=== PATIENT | female | born 1995 | race Caucasian/White ===

== ENCOUNTER → 2018-03-31 12:46 | Outpatient (CLI) | payer SELFPAY ==
[2018-03-31 13:42] LABS: Absolute Lymphocyte Count 1.17 X10^3/ul (0.83-4.51); Absolute Neutrophil Count 4.1 X10^3/uL (2.0-7.7); Eosinophil# 0.01 X10^3/uL; Eosinophils% 0.2 % (0-5); Hematocrit 37.2 % (37-47); Hemoglobin 12.3 g/dl (12.0-15.0); Lymphocyte # 1.17 X10^3/ul (4.0); Lymphocyte % 20.7 % (19-41); Mean Corp Hgb Conc 33.1 g/gl (32-36); Mean Corpuscular Hgb 29.6 pg (27.0-32.0); Mean Corpuscular Volume 89.6 fL (81-99); Mean Platelet Vol. 10.6 fl (6.2-12.0); Monocyte# 0.32 X10^3/uL; Monocyte% 5.7 % (0-10); Neutrophil # 4.14 X10^3/uL (2.7-7.7); Neutrophil % 73.4 % (47-70); Platelet Count 206 K/mm3 (150-450); RBC Distribution Width CV 13.2 % (11.6-14.6); RBC Distribution Width SD 43.2 fl (35.1-43.9); Red Blood Count 4.15 M/mm3 (4.2-5.4); White Blood Count 5.6 K/mm3 (4.4-11.0)
[2018-03-31 13:51] LABS: POSITIVE COUNT NO; POSITIVE DIFFERENTIAL NO; POSITIVE MORPHOLOGY NO
[2018-03-31 15:35] LABS: HIV - WCH Non-Reactive (Nonreactive); Rubella IgG 139.1 IU/mL
[2018-03-31 21:05] LABS: Chlamydia Trachomatis by PCR Negative (Negative); Neisserai gonorrhoeae by PCR Negative (Negative); Probe Check PASS; Sample Adequacy Control PASS; Specimen Processing Control PASS
[2018-04-01 17:09] LABS: HEPATITIS B SURFACE AG Negative (Negative)
[2018-04-02 04:36] LABS: Rapid Plasmin Reagin (RPR) NONREACTIVE (NONREACTIVE)
[2018-04-06 09:13] LABS: HPV Reflexed? NOT INDICATED
== END ==
PROVIDERS: Nurse Practitioner Women's Health; Family Provider Family Medicine; PCP Family Medicine; Visit Provider Obstetrics & Gynecology
DX: Z34.00 Encounter for supervision of normal first pregnancy, unspecified trimester (principal)
CPT/HCPCS: 36415; 85025; 86592; 86703; 86762; 86850; 86900; 87086; 87088; 87340; 87491; 87591; 88175; G0145

== ENCOUNTER → 2018-05-17 11:30 | Outpatient (CLI) | payer SELFPAY ==
--- NOTE | 2018-05-17 11:32 | US_ITS ---
STUDY: SECOND AND THIRD TRIMESTER OBSTETRICAL ULTRASOUND - LIMITED REASON FOR EXAM: Female, 22 years old. Bleeding. LMP: PRIOR ULTRASOUND: None. TECHNIQUE: Transabdominal and transvaginal ultrasound were performed.. Transvaginal ultrasound was performed to better visualize the cervix and placenta. FINDINGS: There is a single intrauterine fetus. The fetus is in a transverse lie with the head on the maternal right side. There is demonstrated cardiac activity with a heart rate of 155 bpm. There is a normal amniotic fluid volume. The largest amniotic fluid pocket and RHINA were not measured. The placenta is posterior with a complete previa. There are Grade 0 placental changes. The cervix measures 4.3 cm in length and it is closed. There is a small amount of free fluid in the posterior cul-de-sac of the pelvis. BIOMETRY: BPD: 3.11 cm: 15 weeks, 6 days HC: 11.55 cm: 15 weeks, 5 days AC: 9.22 cm: 15 weeks, 3 days FL: 1.85 cm: 15 weeks, 4 days Age by LMP: 15 weeks, 4 days. SANDIP by LMP: 11/04/2018. age by current US: 15 weeks, 5 days. SANDIP by current US: 11/03/2018. Estimated weight: 125 grams, +/- 18 grams, 33 percentile. Gender: Not demonstrated. US/OB Limited With Biometrics IMPRESSION: Single viable intrauterine gestation of 15 weeks, 5 days with estimated date of delivery of 11/03/2018. Posterior placenta with a complete placenta previa. Follow-up is advised. No evidence for placental abruption. Cervix is long and closed. Electronically Signed: Mike Reeves MD at 2:36 EDT , Service support ,
== END ==
PROVIDERS: Family Provider Family Medicine; PCP Family Medicine; Visit Provider Obstetrics & Gynecology
DX: O20.8 Other hemorrhage in early pregnancy (principal); Z3A.00 Weeks of gestation of pregnancy not specified
CPT/HCPCS: 76816

== ENCOUNTER → 2018-08-19 10:47 | Outpatient (CLI) | payer SELFPAY ==
[2018-08-19 10:20] VITALS: BMI 23.1
[2018-08-19 11:40] LABS: Absolute Lymphocyte Count 1.09 X10^3/ul (0.83-4.51); Absolute Neutrophil Count 5.8 X10^3/uL (2.0-7.7); Basophil# 0.01 X10^3/uL; Basophil% 0.1 % (0-1); Eosinophil# 0.01 X10^3/uL; Eosinophils% 0.1 % (0-5); Hematocrit 35.9 % (37-47); Hemoglobin 11.9 g/dl (12.0-15.0); Lymphocyte # 1.09 X10^3/ul (4.0); Lymphocyte % 14.9 % (19-41); Mean Corp Hgb Conc 33.1 g/gl (32-36); Mean Corpuscular Hgb 30.4 pg (27.0-32.0); Mean Corpuscular Volume 91.8 fL (81-99); Mean Platelet Vol. 10.2 fl (6.2-12.0); Monocyte# 0.39 X10^3/uL; Monocyte% 5.3 % (0-10); Neutrophil % 79.5 % (47-70); Platelet Count 187 K/mm3 (150-450); RBC Distribution Width CV 12.9 % (11.6-14.6); RBC Distribution Width SD 43.3 fl (35.1-43.9); Red Blood Count 3.91 M/mm3 (4.2-5.4); White Blood Count 7.3 K/mm3 (4.4-11.0)
[2018-08-19 11:42] LABS: POSITIVE COUNT NO; POSITIVE DIFFERENTIAL NO; POSITIVE MORPHOLOGY NO
[2018-08-19 11:49] LABS: Glucose Challenge Gest 1H 50g 168 mg/dL (70-140)
--- OUTSIDE RECORDS SUMMARY | 2018-10-05 06:03 | XMS RPT_ITS ---
:1995 Author Organization OHIP Support Name Relationship Address Phone RUBIN CHRISTINE Unavailable [address] + [place] [address] UE Unavailable Unavailable Unavailable NANCI, RUBIN Unavailable [address] + [place] [address] UE Unavailable Unavailable Unavailable NANCI, RUBIN Unavailable [address] + [place] [address] UE Unavailable Unavailable Unavailable NANCI, RUBIN Unavailable [address] + [place] [address] UE Unavailable Unavailable Unavailable [employer] Unavailable [address] + [place] [address] NANCI, RUBIN Unavailable [address] + [place] [address] NANCI, NAYANA Unavailable [address] + [place] [address] [employer] Unavailable [address] + [place] [address] NANCI, RUBIN Unavailable [address] + [place] [address] [employer] Unavailable [address] + [place] [address] NANCI, RUBIN Unavailable [address] + [place] [address] NANCI NAYANA Unavailable [address] + [place] [address] [employer] Unavailable [address] + [place] [address] NANCI, RUBIN Unavailable [address] + [place] [address] [employer] Unavailable [address] + [place] [address] NANCI, RUBIN Unavailable [address] + [place] [address] [employer] Unavailable [address] + [place] [address] NANCI, RUSTUIN Unavailable [address] + [place] [address] [employer] Unavailable [address] + [place] [address] NANCI, RUSTUIN Unavailable [address] + [place] [address] [employer] Unavailable [address] + [place] [address] NANCI, RUSTUIN Unavailable [address] + [place] [address] [employer] Unavailable [address] + [place] [address] NANCI, RUSTUIN Unavailable [address] + [place] [address] NANCI, RUSTUIN Unavailable [address] + [place] [address] UE Unavailable Unavailable Unavailable Care Team Providers Name Role Phone LAURA POOL Attending Unavailable ANA MIRANDA Referring Unavailable NO PRIMARY CAREMD Primary Care Unavailable ALEX TOURE Attending Unavailable ANA MIRANDA Referring Unavailable NO PRIMARY CAREMD Primary Care Unavailable Ana Miranda Attending Unavailable Young Guzman Referring Unavailable Ana Miranda Attending Unavailable Ana Miranda Referring Unavailable Young Guzman Primary Care Unavailable Ana Miranda Attending Unavailable Young Guzman Referring Unavailable Kaitlynn Nelson Attending Unavailable Kaitlynn Nelson Referring Unavailable Young Guzman Primary Care Unavailable Ana Miranda Attending Unavailable Young Guzman Referring Unavailable Ana Miranda Attending Unavailable Megan, Young Referring Unavailable Marcanthony, Ana Attending Unavailable Megan, Young Referring Unavailable Megan, Young Primary Care Unavailable Marcanthony, Ana Attending Unavailable Marcanthony, Ana Referring Unavailable Megan, Young Primary Care Unavailable Megan, Young Referring Unavailable Megan, Young Primary Care Unavailable [place], Kaitlynn Attending Unavailable [place], Kaitlynn Attending Unavailable Megan, Young Referring Unavailable Megan, Young Primary Care Unavailable Marcanthony, Ana Attending Unavailable Marcanthony, Ana Referring Unavailable Megan, Young Primary Care Unavailable Omar, Kaitlynn Attending Unavailable Megan, Young Referring Unavailable Megan, Young Primary Care Unavailable Marcanthony, Ana Attending Unavailable Megan, Young Referring Unavailable Marcanthony, Ana Attending Unavailable Megan, Young Referring Unavailable PROBLEMS PROBLEMS DATE TYPE CONDITION / CODE ATTENDING STATUS SOURCE 09/16/2018 Unknown Z34.03 - Encounter Marcanthony, Active [place] for supervision of [facility] normal first Hospital , third Repository trimester / Z34.03(ICD-10) 09/16/2018 Unknown O99.815 - Abnormal Marcanthony, Active [place] glucose [facility] complicating the Hospital puerperium / Repository O99.815(ICD-10) 09/16/2018 Unknown Z3A.33 - 33 weeks Marcanthony, Active [place] gestation of [facility] / Hospital Z3A.33(ICD-10) Repository 09/02/2018 Unknown Z3A.31 - 31 weeks Marcanthony, Active [place] gestation of [facility] / Hospital Z3A.31(ICD-10) Repository 08/19/2018 Unknown Z34.90 - Encounter Marcanthony, Active [place] for supervision of [facility] normal , Hospital unspecified, Repository unspecified trimester / Z34.90(ICD-10) 08/19/2018 Unknown Z3A.29 - 29 weeks Marcanthony, Active [place] gestation of [facility] / Hospital Z3A.29(ICD-10) Repository 08/19/2018 Unknown Z34.02 - Encounter Marcanthony, Active [place] for supervision of [facility] normal first Hospital , second Repository trimester / Z34.02(ICD-10) 07/26/2018 Unknown O44.40 - Low lying Marcanthony, Active [place] placenta NOS or [facility] without Hospital hemorrhage, Repository unspecified trimester / O44.40(ICD-10) 07/26/2018 Unknown Z3A.25 - 25 weeks Tayanthcheikh, Active [place] gestation of [facility] / Hospital Z3A.25(ICD-10) Repository 06/21/2018 Unknown Z3A.21 - 21 weeks Joe, Active [place] gestation of [facility] / Hospital Z3A.21(ICD-10) Repository 05/13/2018 Unknown O20.8 - Other OmarKaitlynn higgins Active [place] hemorrhage in [facility] early / Hospital O20.8(ICD-10) Repository 05/07/2018 Unknown Z36.9 - Encounter Kaitlynn Nelson Active [place] for Community screening, Hospital unspecified / Repository Z36.9(ICD-10) 05/07/2018 Unknown Z3A.12 - 12 weeks Kaitlynn Nelson Active [place] gestation of [facility] / Hospital Z3A.12(ICD-10) Repository 05/07/2018 Unknown Z34.00 - Encounter Joe, Active [place] for supervision of [facility] normal [facility] , Repository unspecified trimester / Z34.00(ICD-10) 05/07/2018 Unknown Z34.01 - Encounter Tayanthcheikh, Active [place] for supervision of [facility] normal [facility] , first Repository trimester / Z34.01(ICD-10) PROCEDURES PROCEDURES No Procedure Records FoundRESULTS RESULTS WORKFORCE DEVELOPMENT ASSISTANT OFFICE VISIT Observed: 09/16/2018 Status: F Source: [place] REPORT 2:40 PM [facility] REPOSITORY [facility] [address] [place] [address] [address] [place] [address] OFFICE VISIT Date of Service: 09/16/18 MR#: [id number] Acct: [id number] Name: NAYANA CHRISTINE Rep #: [id number] : 1995 Provider: Ana Miranda MD Age/Sex: 23/F [place] [facility] [place] Status: Signed Intake Vital Signs09/16/18 Body Mass Index (BMI) 23.1 09/16/18 Height 5 ft 11 in 09/16/18 Weight: 167 lb 09/16/18 Body Mass Index (BMI) 23.3 09/16/18 Blood Pressure 100/56 L Intake Visit Reasons: 32 WEEK OB Chief Complaint: est ob Verse Writer Required: No Is patient in pain?: No Allergies acetaminophen [From Tylenol] Allergy (Mild, Verified 09/16/18 14:02) scratchy throat amoxicillin Allergy (Mild, Verified 09/16/18 14:02) rash Medications docosahexanoic acid 200 mg capsule mg PO 03/31/18 [History Confirmed 09/16/18] Last Menstral Period: 01/28/18 Zika: Zika virus screening: Negative : No PFSH PFSH Surgical History S/P nasal surgery (Resolved) Family History Mother Hypotension Social History Smoking Status: Never smoker alcohol intake: never substance use type: does not use caffeine: Yes what type of physical activity do you participate in: walking, weight training frequency: 3-4 times per week seatbelt use: always do you feel safe at home: Yes 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 OB Visit SANDIP Calculator Estimated Delivery Date 11/04/18 Based on LMP (certain) 01/28/18 Current WG 33w 0d Number 1 Expected Delivery Route/Plan Specific Issue/Plans flu vaccine: decline tdap vaccine: given rhogam: na LARC form signed: declines labor support person: Augusto pain management: epidural cut cord/dad catch: yes : yes PP control planned: undecided discussed possible routes of delivery and associated risks: [] special requests: [] Initial Weight: 150 lb Date Weight BP Urine PrFHR FuHt Pres MoCTX DilationFetal StVisit NoProviderComments E ot v te [place] G Effac lucose ed Visit Notes Visit Date: 09/16/18 no vb lof good fm no regular ctx Ana Miranda MD on 09/16/18 Visit Date: 09/02/18 no vb lof good fm no regular ctx nl 3 hr gtt larc signed Ana Miranda MD on 09/02/18 Visit Date: 08/19/18 no vb lof good fm no regular ctx cbc gct tdap Ana Miranda MD on 08/19/18 Visit Date: 07/26/18 no vb lof good fm Ana Miranda MD on 07/26/18 Visit Date: 06/21/18 no vb crmaping. schedule fu us to reassess placental location Ana Miranda MD on 06/21/18 Visit Date: 05/27/18 Doing well. No recent vaginal bleeding. FELI Fitzpatrick on 05/27/18 Visit Date: 05/13/18 Work in for vaginal bleeding-bright red this AM but dark now. No recent IC. No cramping. FHT easily found with doppler. Vaginal speculum notes moderate amount dark blood in vagina. Cervix closed. FELI Fitzpatrick on 05/13/18 Visit Date: 04/29/18 Doing well. Still considering genetic screening. No VB, LOF, nausea. Fatigue improved. FELI Fitzpatrick on 04/29/18 Visit Date: 03/31/18 No visit notes to display ACOG First Trimester First Trimester: Desire for , Alcohol, Tobacco Cessation, Illicit/Recreational Drug/Substance Use, Intimate Partner Violence, Barriers to care, Unstable Housing, Communication Barriers, Environmental/Work Hazards, Anticipated Course of Care, Toxoplasmosis Precations, Use of Any medications, Sexual activity, Exercise, Dental Care, Sauna/Hot tub use, Seat Belt use, Childbirth classes/Hospital facilities, , Travel, Indications for US and Screening for Aneuploidy Diagnostics Diagnostics Labs Blood Type A POSITIVE 03/31/18 Antibody Screen NEGATIVE 03/31/18 Hct 35.9 % (37-47) L 08/19/18 Hgb 11.9 g/dl (12.0-15.0) L 08/19/18 Obstetrics Ultrasound 05/17/18 Rubella IgG Antibody 139.1 IU/mL 03/31/18 RPR NONREACTIVE (NONREACTIVE) 03/31/18 Hep Bs Antigen Negative (Negative) 03/31/18 Chlam trachomat DNA PCR Negative (Negative) 03/31/18 N.gonorrhoeae DNA (PCR) Negative (Negative) 03/31/18 Glucose 1 Hr 50 gm 168 mg/dL (70-140) H 08/19/18 Details: HIV: Urine Culture: Sequential Screen: NIPT Screen: Results [id number] Office Urine Glucose Negative Last Edit by Tona Dillon on 09/16/18 14:05 Office Urine Protein Negative Last Edit by Tona Dillon on 09/16/18 14:05 Assessment AND Plan Problems 1. Abnormal glucose complicating puerperium O99.815 3 hr GTT normal 2. 33 weeks gestation of Z3A.33 Declines genetic, carrier, and NTD screens. normal anatomy scan. 3. Encounter for supervision of normal first in third trimester Z34.03 SANDIP 11/04/18 boy Brock Augusto Plan movement and labor precautions reviewed. ACOG trimester education reviewed and updated. see problem list details for updated plan management information and see below for orders placed at this visit. [place] appropriate handout given. Orders Orders: Coding Level of Care Code OB Routine Diagnoses Abnormal glucose complicating puerperium O99.815 33 weeks gestation of Z3A.33 Weeks of gestation: 33 weeks Encounter for supervision of normal first in third trimester Z34.03 Normal : normal first Trimester: third trimester 09/16/18 1440 <Electronically signed by Ana Miranda MD> Date Ana Miranda MD Cosigner Signature: Date (if applicable) CC: WORKFORCE DEVELOPMENT ASSISTANT OFFICE VISIT Observed: 09/02/2018 Status: F Source: [place] REPORT 10:37 AM [facility] REPOSITORY [facility] [address] [place] [address] OFFICE VISIT Date of Service: 09/02/18 MR#: [id number] Acct: [id number] Name: NAYANA CHRISTINE Rinku Rep #: [id number] : 1995 Provider: Ana Miranda MD Age/Sex: 23/F [place] [facility] Status: Signed Intake Vital Signs09/02/18 Body Mass Index (BMI) 23.1 09/02/18 Height 5 ft 10 in 09/02/18 Weight: 164 lb 8 oz 09/02/18 Body Mass Index (BMI) 23.6 09/02/18 Blood Pressure 112/64 Intake Visit Reasons: 30 WEEK OB Verse Writer Required: No Accompanied by: Allergies acetaminophen [From Tylenol] Allergy (Mild, Verified 09/02/18 10:22) scratchy throat amoxicillin Allergy (Mild, Verified 09/02/18 10:22) rash Medications docosahexanoic acid 200 mg capsule mg PO 03/31/18 [History Confirmed 09/02/18] Last Menstral Period: 01/28/18 Zika: Zika virus screening: Negative : No PFSH PFSH Surgical History S/P nasal surgery (Resolved) Family History Mother Hypotension Social History Smoking Status: Never smoker alcohol intake: never substance use type: does not use caffeine: Yes what type of physical activity do you participate in: walking, weight training frequency: 3-4 times per week seatbelt use: always do you feel safe at home: Yes 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 OB Visit SANDIP Calculator Estimated Delivery Date 11/04/18 Based on LMP (certain) 01/28/18 Current WG 31w 0d Number 1 Expected Delivery Route/Plan Specific Issue/Plans flu vaccine: decline tdap vaccine: given rhogam: na LARC form signed: declines labor support person: Augusto pain management: epidural cut cord/dad catch: yes : yes PP control planned: undecided discussed possible routes of delivery and associated risks: [] special requests: [] Initial Weight: 150 lb Date Weight BP Urine PrFHR FuHt Pres MoCTX DilationFetal StVisit NoProviderComments E ot v te [place] G Effac lucose ed Visit Notes Visit Date: 09/02/18 no vb lof good fm no regular ctx nl 3 hr gtt larc signed Ana Miranda MD on 09/02/18 Visit Date: 08/19/18 no vb lof good fm no regular ctx cbc gct tdap Ana Miranda MD on 08/19/18 Visit Date: 07/26/18 no vb lof good fm Ana Miranda MD on 07/26/18 Visit Date: 06/21/18 no vb crmaping. schedule fu us to reassess placental location Ana Miranda MD on 06/21/18 Visit Date: 05/27/18 Doing well. No recent vaginal bleeding. FELI Fitzpatrick on 05/27/18 Visit Date: 05/13/18 Work in for vaginal bleeding-bright red this AM but dark now. No recent IC. No cramping. FHT easily found with doppler. Vaginal speculum notes moderate amount dark blood in vagina. Cervix closed. FELI Fitzpatrick on 05/13/18 Visit Date: 04/29/18 Doing well. Still considering genetic screening. No VB, LOF, nausea. Fatigue improved. FELI Fitzpatrick on 04/29/18 Visit Date: 03/31/18 No visit notes to display ACOG First Trimester First Trimester: Desire for , Alcohol, Tobacco Cessation, Illicit/Recreational Drug/Substance Use, Intimate Partner Violence, Barriers to care, Unstable Housing, Communication Barriers, Environmental/Work Hazards, Anticipated Course of Care, Toxoplasmosis Precations, Use of Any medications, Sexual activity, Exercise, Dental Care, Sauna/Hot tub use, Seat Belt use, Childbirth classes/Hospital facilities, , Travel, Indications for US and Screening for Aneuploidy Diagnostics Diagnostics Labs Blood Type A POSITIVE 03/31/18 Antibody Screen NEGATIVE 03/31/18 Hct 35.9 % (37-47) L 08/19/18 Hgb 11.9 g/dl (12.0-15.0) L 08/19/18 Obstetrics Ultrasound 05/17/18 Rubella IgG Antibody 139.1 IU/mL 03/31/18 RPR NONREACTIVE (NONREACTIVE) 03/31/18 Hep Bs Antigen Negative (Negative) 03/31/18 Chlam trachomat DNA PCR Negative (Negative) 03/31/18 N.gonorrhoeae DNA (PCR) Negative (Negative) 03/31/18 Glucose 1 Hr 50 gm 168 mg/dL (70-140) H 08/19/18 Details: HIV: Urine Culture: Sequential Screen: NIPT Screen: Results [id number] Office Urine Glucose Negative Last Edit by Lizette Valentine on 09/02/18 10:21 Office Urine Protein Negative Last Edit by Lizette Valentine on 09/02/18 10:21 Assessment AND Plan Problems 1. 31 weeks gestation of Z3A.31 Declines genetic, carrier, and NTD screens. normal anatomy scan. 2. Encounter for supervision of normal first in third trimester Z34.03 SANDIP 11/04/18 boy Augusto 3. Abnormal glucose complicating puerperium O99.815 3 hr GTT normal Plan movement and labor precautions reviewed. ACOG trimester education reviewed and updated. see problem list details for updated plan management information and see below for orders placed at this visit. [place] appropriate handout given. Orders Orders: Coding Level of Care Code OB Routine Diagnoses 31 weeks gestation of Z3A.31 Weeks of gestation: 31 weeks Encounter for supervision of normal first in third trimester Z34.03 Normal : normal first Trimester: third trimester Abnormal glucose complicating puerperium O99.815 09/02/18 1037 <Electronically signed by Ana Miranda MD> Date Ana Miranda MD Cosigner Signature: Date (if applicable) CC: GESTATIONAL GTT 3HR Collected: 08/24/2018 Status: F Source: [place] 100G 10:15 AM [facility] REPOSITORY Order Comment: Is Patient Fasting? Y TYPE CODE TESTS RESULT OUT OF RANGE REFERENCE UNITS LAB L501.0650 <105 mg/dL Normal GLU 83 GTT-FASTING Result Comment: GLUCOSE TOLERANCE TEST FOR Reference Interval GESTATIONAL DIABETES Fasting <105 mg/dL 1 hour <190 mg/dl 2 hour <165 mg/dl 3 hour <145 mg/dl LAB L501.0660 <190 mg/dL Normal GLU GTT- 1HR 132 LAB L501.0670 <165 mg/dL Normal GLU GTT- 2HR 148 LAB L501.0680 <145 L Normal GLU GTT- 3HR 74 Performed By: #### L500.4710 #### [facility] [address]. [place], [place], [address] BEDSIDE GLUCOSE Collected: 08/24/2018 Status: F Source: REVERE 10:14 AM [facility] REPOSITORY TYPE CODE TESTS RESULT OUT OF RANGE REFERENCE UNITS LAB L501.080 70-110 mg/dL Normal BEDSIDE GLU 81 Result Comment: MANAGEMENT OF PATIENT CARE PER NURSING PROTOCOL Performed By: #### L501.080 #### [facility] Point of Care [address] [place] [address] CBC W/DIFF, AUTOMATED Collected: 08/19/2018 Status: F Source: REVERE 11:23 AM [facility] REPOSITORY TYPE CODE TESTS RESULT OUT OF RANGE REFERENCE UNITS LAB L100.1000 4.4-11.0 K/mm3 Normal WBC 7.3 LAB L100.1200 4.2-5.4 M/mm3 Low RBC 3.91 LAB L100.1300 12.0-15.0 g/dl Low HGB 11.9 LAB L100.1400 37-47 % Low HCT 35.9 LAB L100.1500 81-99 fL Normal MCV 91.8 LAB L100.1600 27.0-32.0 pg Normal MCH 30.4 LAB L100.1700 32-36 g/gl Normal MCHC 33.1 LAB L100.1810 11.6-14.6 % Normal RDW CV 12.9 LAB L100.1820 35.1-43.9 fl Normal RDW SD 43.3 LAB L100.1900 150-450 K/mm3 Normal PLT 187 LAB L100.2000 6.2-12.0 fl Normal MPV 10.2 LAB L100.2100 47-70 % High NEUT% 79.5 LAB L100.2200 19-41 % Low LY% 14.9 LAB L100.2300 0-10 % Normal MONO% 5.3 LAB L100.2400 0-5 % Normal EO% 0.1 LAB L100.2500 0-1 % Normal BASO% 0.1 LAB L100.2550 0.0-0.9 % Normal IM GRAN % 0.100 Result Comment: IG% - Immature Granulocytes (promyelocytes, myelocytes and metamyelocytes) > 1% indicates that a LEFT SHIFT is Present. LAB L100.2620 2.0-7.7 X10 3/uL Normal Absolute Neut 5.8 LAB L100.2720 0.83-4.51 X10 3/ul Normal Absolute Lymph 1.09 Performed By: #### L100.0100 #### [facility] [address] [place], [address] GLUCOSE CHALLENGE GEST Collected: 08/19/2018 Status: F Source: REVERE 1H 50G 11:23 AM [facility] REPOSITORY Order Comment: Comments: blood draw at 11:26 Comments: blood draw at 11:26 TYPE CODE TESTS RESULT OUT OF RANGE REFERENCE UNITS LAB L501.0250 70-140 mg/dL High GLU GEST 168 50g 1H Performed By: #### L501.0250 #### [facility] [address] [place], [address] WORKFORCE DEVELOPMENT ASSISTANT OFFICE VISIT Observed: 08/19/2018 Status: F Source: [place] REPORT 10:50 AM [facility] REPOSITORY [facility] [address] [place] [address] OFFICE VISIT Date of Service: 08/19/18 MR#: [id number] Acct: [id number] Name: NAYANA CHRISTINE Rep #: [id number] : 1995 Provider: Ana Miranda MD Age/Sex: 23/F [place] [facility] Status: Signed with Addenda ADDENDUM by Lizette Valentine on 08/19/18 at 1050 OFFICE PROCEDURES Office Procedure Documentation entered by Lizette Valentine 08/19/18 10:50: Immunizations Adacel (Tdap Adolesn/Adult)(PF)2Lf-(2.5-5-3-5mcg)-5 Lf/0.5 mL IM susp Performing Provider: Ana Miranda MD Administered by: Lizette Valentine on 08/19/18 10:48 Dose Route Admin Location Lot Number Expiration Date 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[employer] Well 0.5 mL IM Left Arm (SQ) [id number] 07/01/20 12468-250-34 [employer] VIS Given Date VIS Publication Date 08/19/18 10/31/14 Eligibility Eligibility Date 08/19/18 1050 <Electronically signed by Lizette Valentine > Date Lizette Valentine cc: * Signed Intake Vital Signs08/19/18 Body Mass Index (BMI) 23.1 08/19/18 Height 5 ft 10 in 08/19/18 Weight: 163 lb 4 oz 08/19/18 Body Mass Index (BMI) 23.4 08/19/18 Blood Pressure 110/72 Intake Visit Reasons: 28 WEEK OB Verse Writer Required: No Is patient in pain?: No Allergies acetaminophen [From Tylenol] Allergy (Mild, Verified 08/19/18 10:20) scratchy throat amoxicillin Allergy (Mild, Verified 08/19/18 10:20) rash Medications docosahexanoic acid 200 mg capsule mg PO 03/31/18 [History Confirmed 08/19/18] Last Menstral Period: 01/28/18 Zika: Zika virus screening: Negative : No PFSH PFSH Surgical History S/P nasal surgery (Resolved) Family History Mother Hypotension Social History Smoking Status: Never smoker alcohol intake: never substance use type: does not use caffeine: Yes what type of physical activity do you participate in: walking, weight training frequency: 3-4 times per week seatbelt use: always do you feel safe at home: Yes 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 OB Visit SANDIP Calculator Estimated Delivery Date 11/04/18 Based on LMP (certain) 01/28/18 Current WG 29w 0d Number 1 Expected Delivery Route/Plan Specific Issue/Plans flu vaccine: decline tdap vaccine: given rhogam: na LARC form signed: [] labor support person: Augusto pain management: epidural cut cord/dad catch: yes : yes PP control planned: [] discussed possible routes of delivery and associated risks: [] special requests: [] Initial Weight: 150 lb Date Weight BP Urine PFHR FuHt Pres MCTX DilatioFetal SVisit NProvideComment rot ov n t ote r s EGA Ef Gluco faced se 03/31/1152 lb 124/70 8 (+2 lb) 8w 6d Visit Notes Visit Date: 08/19/18 no vb lof good fm no regular ctx cbc gct tdap Ana Miranda MD on 08/19/18 Visit Date: 07/26/18 no vb lof good fm Ana Miranda MD on 07/26/18 Visit Date: 06/21/18 no vb crmaping. schedule fu us to reassess placental location Ana Miranda MD on 06/21/18 Visit Date: 05/27/18 Doing well. No recent vaginal bleeding. FELI Fitzpatrick on 05/27/18 Visit Date: 05/13/18 Work in for vaginal bleeding-bright red this AM but dark now. No recent IC. No cramping. FHT easily found with doppler. Vaginal speculum notes moderate amount dark blood in vagina. Cervix closed. FELI Fitzpatrick on 05/13/18 Visit Date: 04/29/18 Doing well. Still considering genetic screening. No VB, LOF, nausea. Fatigue improved. FELI Fitzpatrick on 04/29/18 Visit Date: 03/31/18 No visit notes to display ACOG First Trimester First Trimester: Desire for , Alcohol, Tobacco Cessation, Illicit/Recreational Drug/Substance Use, Intimate Partner Violence, Barriers to care, Unstable Housing, Communication Barriers, Environmental/Work Hazards, Anticipated Course of Care, Toxoplasmosis Precations, Use of Any medications, Sexual activity, Exercise, Dental Care, Sauna/Hot tub use, Seat Belt use, Childbirth classes/Hospital facilities, , Travel, Indications for US and Screening for Aneuploidy Diagnostics Diagnostics Labs Blood Type A POSITIVE 03/31/18 Antibody Screen NEGATIVE 03/31/18 Hct 37.2 % (37-47) 03/31/18 Hgb 12.3 g/dl (12.0-15.0) 03/31/18 Obstetrics Ultrasound 05/17/18 Rubella IgG Antibody 139.1 IU/mL 03/31/18 RPR NONREACTIVE (NONREACTIVE) 03/31/18 Hep Bs Antigen Negative (Negative) 03/31/18 Chlam trachomat DNA PCR Negative (Negative) 03/31/18 N.gonorrhoeae DNA (PCR) Negative (Negative) 03/31/18 Details: HIV: Urine Culture: Sequential Screen: NIPT Screen: Results [id number] Office Urine Glucose Negative Last Edit by Lizette Valentine on 08/19/18 10:22 Office Urine Protein Negative Last Edit by Lizette Valentine on 08/19/18 10:22 Assessment AND Plan Problems 1. 29 weeks gestation of Z3A.29 Declines genetic, carrier, and NTD screens. normal anatomy scan. 2. Encounter for supervision of normal first in second trimester Z34.02 SANDIP 11/04/18 boy Augusto Plan ACOG trimester education reviewed and updated. see problem list details for updated plan management information and see below for orders placed at this visit. GA appropriate handout given. Orders Orders: Coding Level of Care Code OB Routine Diagnoses 29 weeks gestation of Z3A.29 Weeks of gestation: 29 weeks Encounter for supervision of normal first in second trimester Z34.02 Normal : normal first Trimester: second trimester 08/19/18 1038 <Electronically signed by Ana Miranda MD> Date Ana Miranda MD Cosigner Signature: Date (if applicable) CC: WORKFORCE DEVELOPMENT ASSISTANT OFFICE VISIT Observed: 07/26/2018 Status: F Source: [place] RE[facility] 2:31 PM [facility] REPOSITORY [facility] [address] [place] [address] OFFICE VISIT Date of Service: 07/26/18 MR#: [id number] Acct: [id number] Name: NAYANA CHRISTINE Rep #: [id number] : 1995 Provider: Ana Miranda MD Age/Sex: 22/F [place] [facility] [place]: Signed Intake Vital Signs07/26/18 Height 5 ft 10 in 07/26/18 Weight: 161 lb 4 oz 07/26/18 Body Mass Index (BMI) 23.1 07/26/18 Blood Pressure 104/58 L Intake Visit Reasons: 24 WEEK OB Chief Complaint: est ob Verse Writer Required: No Is patient in pain?: No Allergies acetaminophen [From Tylenol] Allergy (Mild, Verified 07/26/18 14:10) scratchy throat amoxicillin Allergy (Mild, Verified 07/26/18 14:10) rash Medications docosahexanoic acid 200 mg capsule mg PO 03/31/18 [History Confirmed 07/26/18] Last Menstral Period: 01/28/18 Zika: Zika virus screening: Negative : No PFSH PFSH Surgical History S/P nasal surgery (Resolved) Family History Mother Hypotension Social History Smoking Status: Never smoker alcohol intake: never substance use type: does not use caffeine: Yes what type of physical activity do you participate in: walking, weight training frequency: 3-4 times per week seatbelt use: always do you feel safe at home: Yes 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 OB Visit SANDIP Calculator Estimated Delivery Date 11/04/18 Based on LMP (certain) 01/28/18 Current WG 25w 4d Number 1 Expected Delivery Route/Plan Specific Issue/Plans flu vaccine: considering tdap vaccine: [] rhogam: na LARC form signed: [] labor support person: Augusto pain management: epidural cut cord/dad catch: yes : yes PP control planned: [] discussed possible routes of delivery and associated risks: [] special requests: [] Initial Weight: Not Recorded Date Weight BP Urine PrFHR FuHt Pres MoCTX DilationFetal StVisit NoProviderComments E ot v te GA G Effac lucose ed Visit Notes Visit Date: 07/26/18 no vb lof good fm Ana Miranda MD on 07/26/18 Visit Date: 06/21/18 no vb crmaping. schedule fu us to reassess placental location Ana Miranda MD on 06/21/18 Visit Date: 05/27/18 Doing well. No recent vaginal bleeding. FELI Fitzpatrick on 05/27/18 Visit Date: 05/13/18 Work in for vaginal bleeding-bright red this AM but dark now. No recent IC. No cramping. FHT easily found with doppler. Vaginal speculum notes moderate amount dark blood in vagina. Cervix closed. FELI Fitzpatrick on 05/13/18 Visit Date: 04/29/18 Doing well. Still considering genetic screening. No VB, LOF, nausea. Fatigue improved. FELI Fitzpatrick on 04/29/18 Visit Date: 03/31/18 No visit notes to display ACOG First Trimester First Trimester: Desire for , Alcohol, Tobacco Cessation, Illicit/Recreational Drug/Substance Use, Intimate Partner Violence, Barriers to care, Unstable Housing, Communication Barriers, Environmental/Work Hazards, Anticipated Course of Care, Toxoplasmosis Precations, Use of Any medications, Sexual activity, Exercise, Dental Care, Sauna/Hot tub use, Seat Belt use, Childbirth classes/Hospital facilities, , Travel, Indications for US and Screening for Aneuploidy Diagnostics Diagnostics Labs Blood Type A POSITIVE 03/31/18 Antibody Screen NEGATIVE 03/31/18 Hct 37.2 % (37-47) 03/31/18 Hgb 12.3 g/dl (12.0-15.0) 03/31/18 Obstetrics Ultrasound 05/17/18 Rubella IgG Antibody 139.1 IU/mL 03/31/18 RPR NONREACTIVE (NONREACTIVE) 03/31/18 Hep Bs Antigen Negative (Negative) 03/31/18 Chlam trachomat DNA PCR Negative (Negative) 03/31/18 N.gonorrhoeae DNA (PCR) Negative (Negative) 03/31/18 Details: HIV: Urine Culture: Sequential Screen: NIPT Screen: Results [id number] Office Urine Glucose Negative Last Edit by Tona Dillon on 07/26/18 14:13 Office Urine Protein Negative Last Edit by Tona Dillon on 07/26/18 14:13 Assessment AND Plan Problems 1. Low lying placenta, antepartum O44.40 Repeat US at 28 weeks 2. 25 weeks gestation of Z3A.25 Declines genetic, carrier, and NTD screens. normal anatomy scan. 3. Encounter for supervision of normal first in second trimester Z34.02 SANDIP 11/04/18 boy Augusto Plan movement and labor precautions reviewed. ACOG trimester education reviewed and updated. see problem list details for updated plan management information and see below for orders placed at this visit. GA appropriate handout given. Orders Orders: Coding Level of Care Code OB Routine Diagnoses Low lying placenta, antepartum O44.40 25 weeks gestation of Z3A.25 Weeks of gestation: 25 weeks Encounter for supervision of normal first in second trimester Z34.02 Normal : normal first Trimester: second trimester 07/26/18 1431 <Electronically signed by Ana Miranda MD> Date Ana Miranda MD Cosigner Signature: Date (if applicable) CC: WORKFORCE DEVELOPMENT ASSISTANT OFFICE VISIT Observed: 06/21/2018 Status: F Source: [place] REPORT 2:37 PM [facility] REPOSITORY [facility] [address] [place] [address] OFFICE VISIT Date of Service: 06/21/18 MR#: [id number] Acct: [id number] Name: NAYANA CHRISTINE Rep #: [id number] : 1995 Provider: Ana Miranda MD Age/Sex: 22/F [place] [facility] Status: Signed Intake Vital Signs06/21/18 Height 5 ft 10 in 06/21/18 Weight: 154 lb 06/21/18 Body Mass Index (BMI) 22.1 06/21/18 Blood Pressure 102/60 Intake Visit Reasons: 20 WEEK OB Verse Writer Required: No Is patient in pain?: No Allergies acetaminophen [From Tylenol] Allergy (Mild, Verified 06/21/18 14:15) scratchy throat amoxicillin Allergy (Mild, Verified 06/21/18 14:15) rash Medications docosahexanoic acid 200 mg capsule mg PO 03/31/18 [History Confirmed 06/21/18] Last Menstral Period: 01/28/18 Zika: Zika virus screening: Negative : No PFSH PFSH Surgical History S/P nasal surgery (Resolved) Family History Mother Hypotension Social History Smoking Status: Never smoker alcohol intake: never substance use type: does not use caffeine: Yes what type of physical activity do you participate in: walking, weight training frequency: 3-4 times per week seatbelt use: always do you feel safe at home: Yes 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 OB Visit SANDIP Calculator Estimated Delivery Date 11/04/18 Based on LMP (certain) 01/28/18 Current WG 20w 4d Number 1 Expected Delivery Route/Plan Specific Issue/Plans flu vaccine: considering tdap vaccine: [] rhogam: na LARC form signed: [] labor support person: Augusto pain management: epidural cut cord/dad catch: yes : yes PP control planned: [] discussed possible routes of delivery and associated risks: [] special requests: [] Initial Weight: Not Recorded Date Weight BP Urine PrFHR FuHt Pres MoCTX DilationFetal StVisit NoProviderComments E ot v te GA G Effac lucose ed Visit Notes Visit Date: 06/21/18 no vb crmaping. schedule fu us to reassess placental location Ana Miranda MD on 06/21/18 Visit Date: 05/27/18 Doing well. No recent vaginal bleeding. FELI Fitzpatrick on 05/27/18 Visit Date: 05/13/18 Work in for vaginal bleeding-bright red this AM but dark now. No recent IC. No cramping. FHT easily found with doppler. Vaginal speculum notes moderate amount dark blood in vagina. Cervix closed. FELI Fitzpatrick on 05/13/18 Visit Date: 04/29/18 Doing well. Still considering genetic screening. No VB, LOF, nausea. Fatigue improved. FELI Fitzpatrick on 04/29/18 Visit Date: 03/31/18 No visit notes to display ACOG First Trimester First Trimester: Desire for , Alcohol, Tobacco Cessation, Illicit/Recreational Drug/Substance Use, Intimate Partner Violence, Barriers to care, Unstable Housing, Communication Barriers, Environmental/Work Hazards, Anticipated Course of Care, Toxoplasmosis Precations, Use of Any medications, Sexual activity, Exercise, Dental Care, Sauna/Hot tub use, Seat Belt use, Childbirth classes/Hospital facilities, , Travel, Indications for US and Screening for Aneuploidy Diagnostics Diagnostics Labs Blood Type A POSITIVE 03/31/18 Antibody Screen NEGATIVE 03/31/18 Hct 37.2 % (37-47) 03/31/18 Hgb 12.3 g/dl (12.0-15.0) 03/31/18 Obstetrics Ultrasound 05/17/18 Rubella IgG Antibody 139.1 IU/mL 03/31/18 RPR NONREACTIVE (NONREACTIVE) 03/31/18 Hep Bs Antigen Negative (Negative) 03/31/18 Chlam trachomat DNA PCR Negative (Negative) 03/31/18 N.gonorrhoeae DNA (PCR) Negative (Negative) 03/31/18 Details: HIV: Urine Culture: Sequential Screen: NIPT Screen: Results [id number] Office Urine Glucose Negative Last Edit by Holley Mclaughlin on 06/21/18 14:21 Office Urine Protein Negative Last Edit by Holley Mclaughlin on 06/21/18 14:21 Assessment AND Plan Problems 1. Encounter for supervision of normal first in second trimester Z34.02 SANDIP 11/04/18 boy Augusto 2. 21 weeks gestation of Z3A.21 Declines genetic, carrier, and NTD screens. normal anatomy scan. 3. Low lying placenta, antepartum O44.40 Repeat US at 28 weeks Plan ACOG trimester education reviewed and updated. see problem list details for updated plan management information and see below for orders placed at this visit. [place] appropriate handout given. Orders Orders: Coding Level of Care Code OB Routine Diagnoses Encounter for supervision of normal first in second trimester Z34.02 Normal : normal first Trimester: second trimester 21 weeks gestation of Z3A.21 Weeks of gestation: 21 weeks Low lying placenta, antepartum O44.40 06/21/18 1437 <Electronically signed by Ana Miranda MD> Date Ana Miranda MD Cosign Signature: Date (if applicable) CC: WORKFORCE DEVELOPMENT ASSISTANT OFFICE VISIT Observed: 05/27/2018 Status: F Source: [place] RE[place] 3:33 PM [facility] [address] [place] [address] OFFICE VISIT Date of Service: 05/27/18 MR#: [id number] Acct: [id number] Name: NAYANA CHRISTINE Rep #: [id number] : 1995 Provider: CELIA Nelson Age/Sex: 22/F [place] [facility] [place] Signed Intake Vital Signs05/27/18 Height 5 ft 10 in 05/27/18 Weight: 153 lb 4 oz 05/27/18 Body Mass Index (BMI) 21.9 05/27/18 Blood Pressure 115/58 Intake Visit Reasons: 16 WEEK OB Verse Writer Required: No Is patient in pain?: No Allergies acetaminophen [From Tylenol] Allergy (Mild, Verified 05/27/18 13:47) scratchy throat amoxicillin Allergy (Mild, Verified 05/27/18 13:47) rash Medications docosahexanoic acid 200 mg capsule mg PO 03/31/18 [History Confirmed 05/27/18] Last Menstral Period: 01/28/18 Zika: Zika virus screening: Negative : No PFSH PFSH Surgical History S/P nasal surgery (Resolved) Family History Mother Hypotension Social History Smoking Status: Never smoker alcohol intake: never substance use type: does not use caffeine: Yes what type of physical activity do you participate in: walking, weight training frequency: 3-4 times per week seatbelt use: always do you feel safe at home: Yes 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 OB Visit SANDIP Calculator Estimated Delivery Date 11/04/18 Based on LMP (certain) 01/28/18 Current WG 17w 0d Number 1 Expected Delivery Route/Plan Specific Issue/Plans flu vaccine: [] tdap vaccine: [] rhogam: na LARC form signed: [] labor support person: Augusto pain management: epidural cut cord/dad catch: yes : yes PP control planned: [] discussed possible routes of delivery and associated risks: [] special requests: [] Initial Weight: Not Recorded Date Weight BP Urine PrFHR FuHt Pres MoCTX DilationFetal StVisit NoProviderComments E ot v te GA G Effac lucose ed Visit Notes Visit Date: 05/27/18 Doing well. No recent vaginal bleeding. FELI Fitzpatrick on 05/27/18 Visit Date: 05/13/18 Work in for vaginal bleeding-bright red this AM but dark now. No recent IC. No cramping. FHT easily found with doppler. Vaginal speculum notes moderate amount dark blood in vagina. Cervix closed. FELI Fitzpatrick on 05/13/18 Visit Date: 04/29/18 Doing well. Still considering genetic screening. No VB, LOF, nausea. Fatigue improved. FELI Fitzpatrick on 04/29/18 Visit Date: 03/31/18 No visit notes to display ACOG First Trimester First Trimester: Desire for , Alcohol, Tobacco Cessation, Illicit/Recreational Drug/Substance Use, Intimate Partner Violence, Barriers to care, Unstable Housing, Communication Barriers, Environmental/Work Hazards, Anticipated Course of Care, Toxoplasmosis Precations, Use of Any medications, Sexual activity, Exercise, Dental Care, Sauna/Hot tub use, Seat Belt use, Childbirth classes/Hospital facilities, , Travel, Indications for US and Screening for Aneuploidy Diagnostics Diagnostics Labs Blood Type A POSITIVE 03/31/18 Antibody Screen NEGATIVE 03/31/18 Hct 37.2 % (37-47) 03/31/18 Hgb 12.3 g/dl (12.0-15.0) 03/31/18 Obstetrics Ultrasound 05/17/18 Rubella IgG Antibody 139.1 IU/mL 03/31/18 RPR NONREACTIVE (NONREACTIVE) 03/31/18 Hep Bs Antigen Negative (Negative) 03/31/18 Chlam trachomat DNA PCR Negative (Negative) 03/31/18 N.gonorrhoeae DNA (PCR) Negative (Negative) 03/31/18 Details: HIV: Urine Culture: Sequential Screen: NIPT Screen: Results [id number] Office Urine Glucose Negative Last Edit by Rani Sandra on 05/27/18 13:55 Office Urine Protein Negative Last Edit by Rani Sandra on 05/27/18 13:55 Assessment AND Plan Problems 1. Encounter for supervision of normal first in first trimester Z34.01 SANDIP 11/04/18 Augusto 2. Placenta previa in first trimester O44.01 pelvic rest. repeat US at 28 weeks. 3. 17 weeks gestation of Z3A.17 Declines genetic screens MFM US anatomy ordered Plan Orders placed: anatomy US with MFM Reviewed pelvic rest, call with any vaginal bleeding Reviewed of labor precautions, movement/kick counts ACOG trimester education reviewed and updated See problem list details for updated plan of care Gestational age appropriate handout given RTO: 4 weeks Orders Orders: Coding Level of Care Code OB Routine Diagnoses Encounter for supervision of normal first in first trimester Z34.01 Normal : normal first Trimester: first trimester Placenta previa in first trimester O44.01 Trimester: first trimester 17 weeks gestation of Z3A.17 Weeks of gestation: 17 weeks 05/27/18 1533 <Electronically signed by Kaitlynn EDMOND> Date Kaitlynn EDMOND Cosigner Signature: Date (if applicable) CC: OB LIMITED WITH Observed: 05/17/2018 Status: F Source: [employer] 11:32 AM [facility] REPOSITORY [facility] [address] [place] [id number] OB Limited With Biometrics MR#: [id number] Acct: [id number] Name: NAYANA CHRISTINE Rep #: [id number] : 1995 F 22 From: Mike Reeves MD PCP: Young Guzman MD Status: REG CLI Study: OB Limited With Biometrics Date of Exam: 05/17/18 Exam# [id number] Ordering Dr: Kaitlynn Nelson STUDY: SECOND AND THIRD TRIMESTER OBSTETRICAL ULTRASOUND - LIMITED REASON FOR EXAM: Female, 22 years old. Bleeding. LMP: PRIOR ULTRASOUND: None. TECHNIQUE: Transabdominal and transvaginal ultrasound were performed.. Transvaginal ultrasound was performed to better visualize the cervix and placenta. FINDINGS: There is a single intrauterine fetus. The fetus is in a transverse lie with the head on the maternal right side. There is demonstrated cardiac activity with a heart rate of 155 bpm. There is a normal amniotic fluid volume. The largest amniotic fluid pocket and RHINA were not measured. The placenta is posterior with a complete previa. There are Grade 0 placental changes. The cervix measures 4.3 cm in length and it is closed. There is a small amount of free fluid in the posterior cul-de-sac of the pelvis. BIOMETRY: BPD: 3.11 cm: 15 weeks, 6 days HC: 11.55 cm: 15 weeks, 5 days AC: 9.22 cm: 15 weeks, 3 days FL: 1.85 cm: 15 weeks, 4 days Age by LMP: 15 weeks, 4 days. SANDIP by LMP: 11/04/2018. age by current US: 15 weeks, 5 days. SANDIP by current US: 11/03/2018. Estimated weight: 125 grams, +/- 18 grams, 33 percentile. Gender: Not demonstrated. US/OB Limited With Biometrics IMPRESSION: Single viable intrauterine gestation of 15 weeks, 5 days with estimated date of delivery of 11/03/2018. Posterior placenta with a complete placenta previa. Follow- up is advised. No evidence for placental abruption. Cervix is long and closed. Electronically Signed: Mike Reeves MD at 2:36 EDT , Service support , CC: CELIA Nelson; Young Guzman MD [employer] Remittance Clerk: Signed WORKFORCE DEVELOPMENT ASSISTANT OFFICE VISIT Observed: 05/13/2018 Status: F Source: [place] REPORT 1:59 PM [facility] [address] [place] [address]. [address] [place] [address] OFFICE VISIT Date of Service: 05/13/18 MR#: [id number] Acct: [id number] Name: NAYANA CHRISTINE Rep #: [id number] : 1995 Provider: CELIA Nelson Age/Sex: 22/F [place] [facility] [place] Status: Signed Intake Vital Signs05/13/18 Height 5 ft 10 in 05/13/18 Weight: 152 lb 2 oz 05/13/18 Body Mass Index (BMI) 21.8 05/13/18 Blood Pressure 100/62 Intake Visit Reasons: VB 15 weeks Verse Writer Required: No Is patient in pain?: No Allergies acetaminophen [From Tylenol] Allergy (Mild, Verified 05/13/18 13:40) scratchy throat amoxicillin Allergy (Mild, Verified 05/13/18 13:40) rash Medications docosahexanoic acid 200 mg capsule mg PO 03/31/18 [History Confirmed 05/13/18] Last Menstral Period: 01/28/18 Zika: Zika virus screening: Negative : No PFSH PFSH Surgical History S/P nasal surgery (Resolved) Family History Mother Hypotension Social History Smoking Status: Never smoker alcohol intake: never substance use type: does not use caffeine: Yes what type of physical activity do you participate in: walking, weight training frequency: 3-4 times per week seatbelt use: always do you feel safe at home: Yes 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 OB Visit SANDIP Calculator Estimated Delivery Date 11/04/18 Based on LMP (certain) 01/28/18 Current WG 15w 0d Number 1 Expected Delivery Route/Plan Specific Issue/Plans flu vaccine: [] tdap vaccine: [] rhogam: [] LARC form signed: [] labor support person: [] pain management: [] cut cord/dad catch: [] : [] PP control planned: [] discussed possible routes of delivery and associated risks: [] special requests: [] Initial Weight: Not Recorded Date Weight BP Urine PrFHR FuHt Pres MoCTX DilationFetal StVisit NoProviderComments E ot v te [place] G Effac lucose ed Visit Notes Visit Date: 05/13/18 Work in for vaginal bleeding-bright red this AM but dark now. No recent IC. No cramping. FHT easily found with doppler. Vaginal speculum notes moderate amount dark blood in vagina. Cervix closed. FELI Fitzpatrick on 05/13/18 Visit Date: 04/29/18 Doing well. Still considering genetic screening. No VB, LOF, nausea. Fatigue improved. FELI Fitzpatrick on 04/29/18 Visit Date: 03/31/18 No visit notes to display ACOG First Trimester First Trimester: Desire for , Alcohol, Tobacco Cessation, Illicit/Recreational Drug/Substance Use, Intimate Partner Violence, Barriers to care, Unstable Housing, Communication Barriers, Environmental/Work Hazards, Anticipated Course of Care, Toxoplasmosis Precations, Use of Any medications, Sexual activity, Exercise, Dental Care, Sauna/Hot tub use, Seat Belt use, Childbirth classes/Hospital facilities, , Travel, Indications for US and Screening for Aneuploidy Diagnostics Diagnostics Labs Blood Type A POSITIVE 03/31/18 Antibody Screen NEGATIVE 03/31/18 Hct 37.2 % (37-47) 03/31/18 Hgb 12.3 g/dl (12.0-15.0) 03/31/18 Rubella IgG Antibody 139.1 IU/mL 03/31/18 RPR NONREACTIVE (NONREACTIVE) 03/31/18 Hep Bs Antigen Negative (Negative) 03/31/18 Chlam trachomat DNA PCR Negative (Negative) 03/31/18 N.gonorrhoeae DNA (PCR) Negative (Negative) 03/31/18 Details: HIV: Urine Culture: Sequential Screen: NIPT Screen: Results [id number] Office Urine Glucose Negative Last Edit by Rani Sandra on 05/13/18 13:45 Office Urine Protein Negative Last Edit by Rani Sandra on 05/13/18 13:45 Assessment AND Plan Problems 1. Bleeding in early O20.9 Plan Reassured but will proceed with US. Call if increase bleeding. Orders Orders: Coding Level of Care Code OB Routine Diagnoses Bleeding in early O20.9 05/13/18 1359 <Electronically signed by Kaitlynn EDMOND> Date Kaitlynn EDMOND Cosigner Signature: Date (if applicable) CC: WORKFORCE DEVELOPMENT ASSISTANT OFFICE VISIT Observed: 04/29/2018 Status: F Source: [place] REPORT 3:31 PM [facility] REPOSIT[facility] [address] [place] [address] OFFICE VISIT Date of Service: 04/29/18 MR#: [id number] Acct: [id number] Name: NAYANA CHRISTINE Rep #: [id number] : 1995 Provider: CELIA Nelson Age/Sex: 22/F Location[place] [facility] [place] Status: Signed Intake Vital Signs04/29/18 Height 5 ft 10 in 04/29/18 Weight: 150 lb 8 oz 04/29/18 Body Mass Index (BMI) 21.6 04/29/18 Blood Pressure 100/62 Intake Visit Reasons: 12 weeks Chief Complaint: est ob Verse Writer Required: No Is patient in pain?: No Allergies acetaminophen [From Tylenol] Allergy (Mild, Verified 04/29/18 15:05) scratchy throat amoxicillin Allergy (Mild, Verified 04/29/18 15:05) rash Medications docosahexanoic acid 200 mg capsule mg PO 03/31/18 [History Confirmed 04/29/18] Last Menstral Period: 01/28/18 Zika: Zika virus screening: Negative : No PFSH PFSH Surgical History S/P nasal surgery (Resolved) Family History Mother Hypotension Social History Smoking Status: Never smoker alcohol intake: never substance use type: does not use caffeine: Yes what type of physical activity do you participate in: walking, weight training frequency: 3-4 times per week seatbelt use: always do you feel safe at home: Yes 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 OB Visit SANDIP Calculator Estimated Delivery Date 11/04/18 Based on LMP (certain) 01/28/18 Current WG 13w 0d Number 1 Expected Delivery Route/Plan Specific Issue/Plans flu vaccine: [] tdap vaccine: [] rhogam: [] LARC form signed: [] labor support person: [] pain management: [] cut cord/dad catch: [] : [] PP control planned: [] discussed possible routes of delivery and associated risks: [] special requests: [] Initial Weight: Not Recorded Date Weight BP Urine PrFHR FuHt Pres MoCTX DilationFetal StVisit NoProviderComments E ot v te GA G Effac lucose ed Visit Notes Visit Date: 04/29/18 Doing well. Still considering genetic screening. No VB, LOF, nausea. Fatigue improved. FELI Fitzpatrick on 04/29/18 Visit Date: 03/31/18 No visit notes to display ACOG First Trimester First Trimester: Desire for , Alcohol, Tobacco Cessation, Illicit/Recreational Drug/Substance Use, Intimate Partner Violence, Barriers to care, Unstable Housing, Communication Barriers, Environmental/Work Hazards, Anticipated Course of Care, Toxoplasmosis Precations, Use of Any medications, Sexual activity, Exercise, Dental Care, Sauna/Hot tub use, Seat Belt use, Childbirth classes/Hospital facilities, , Travel, Indications for US and Screening for Aneuploidy Diagnostics Diagnostics Labs Blood Type A POSITIVE 03/31/18 Antibody Screen NEGATIVE 03/31/18 Hct 37.2 % (37-47) 03/31/18 Hgb 12.3 g/dl (12.0-15.0) 03/31/18 Rubella IgG Antibody 139.1 IU/mL 03/31/18 RPR NONREACTIVE (NONREACTIVE) 03/31/18 Hep Bs Antigen Negative (Negative) 03/31/18 Chlam trachomat DNA PCR Negative (Negative) 03/31/18 N.gonorrhoeae DNA (PCR) Negative (Negative) 03/31/18 Details: HIV: Urine Culture: Sequential Screen: NIPT Screen: Results [id number] Office Urine Glucose Negative Last Edit by Tona Dillon on 04/29/18 15:30 Office Urine Protein Negative Last Edit by Tona Dillon on 04/29/18 15:30 Assessment AND Plan Problems 1. Encounter for supervision of normal first in first trimester Z34.01 SANDIP 11/04/18 Augusto 2. screening encounter Z36.9 Genetic testing-considering. 3. 12 weeks gestation of Z3A.12 Plan - FELI Fitzpatrick Orders placed: none Discussed genetic screening. Wants to discuss with about cost Reviewed symptoms to report to office ACOG trimester education reviewed and updated See problem list details for updated plan of care Gestational age appropriate handout given RTO: 4 weeks Orders Orders: Coding Level of Care Code OB Routine Diagnoses Encounter for supervision of normal first in first trimester Z34.01 Normal : normal first Trimester: first trimester screening encounter Z36.9 12 weeks gestation of Z3A.12 Weeks of gestation: 12 weeks 04/29/18 1531 <Electronically signed by Ana Miranda MD> Date Ana Miranda MD 04/29/18 1528<Electronically signed by Kaitlynn EDMOND> Cosigner Signature: Date (if applicable) Kaitlynn Nelson CC: WORKFORCE DEVELOPMENT ASSISTANT OFFICE VISIT Observed: 04/03/2018 Status: F Source: [place] REPORT 10:01 PM [facility] [place] [address] [place] [address] OFFICE VISIT Date of Service: 03/31/18 MR#: [id number] Acct: [id number] Name: NAYANA CHRISTINE Rep #: [id number] : 1995 Provider: Ana Miranda MD Age/Sex: 22/F [place] [facility] [place]: Signed Intake Vital Signs03/31/18 Height 5 ft 11 in 03/31/18 Weight: 152 lb 03/31/18 Body Mass Index (BMI) 21.2 03/31/18 Blood Pressure 124/70 Intake Visit Reasons: NOB - LMP 01/28 Verse Writer Required: No Is patient in pain?: No Allergies acetaminophen [From Tylenol] Allergy (Mild, Verified 03/31/18 11:55) scratchy throat amoxicillin Allergy (Mild, Verified 03/31/18 11:55) rash Medications docosahexanoic acid 200 mg capsule mg PO 03/31/18 [History Confirmed 03/31/18] Last Menstral Period: 01/28/18 Zika: Zika virus screening: Negative : No PFSH PFSH Surgical History S/P nasal surgery (Resolved) Family History Mother Hypotension Social History Smoking Status: Never smoker alcohol intake: never substance use type: does not use caffeine: Yes what type of physical activity do you participate in: walking, weight training frequency: 3-4 times per week seatbelt use: always do you feel safe at home: Yes additional social history: - [employer]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 OB Visit SANDIP Calculator Estimated Delivery Date 11/04/18 Based on LMP (certain) 01/28/18 Current WG 9w 2d Number 1 Comments: CRL consistentw ith LMP viable IUP FHT 160s seen Expected Delivery Route/Plan Specific Issue/Plans flu vaccine: [] tdap vaccine: [] rhogam: [] LARC form signed: [] labor support person: [] pain management: [] cut cord/dad catch: [] : [] PP control planned: [] discussed possible routes of delivery and associated risks: [] special requests: [] Initial Weight: Not Recorded Date Weight BP Urine PrFHR FuHt Pres MoCTX DilationFetal StVisit NoProviderComments E ot v te GA G Effac lucose ed Menstrual History Last Menstral Period: 01/28/18 Reported LMP: definite Normal amount/duration: Yes On hormonal BC at conception: No Antepartum Record Genetic Screening: Congenital Heart Defect: Other, Neural Tube Defect: Other, Hemoglobinopathy Or Carrier: Other, Cystic Fibrosis: Other, Chromosome Abnormality: Other, Andrew-Sachs: Other, Hemophilia: Other, Intellectual Disability/Autism: Other, Recurrent Loss/Stillbirth: Other, Other Structural Defect: Other, Other Genetic Disease: Other, Maternal Metabolic Disorder: Other Infection History: Live with someone with TB or Exposed to TB: No, Patient or Partner has history of Genital Herpes: No, Rash or Viral illness since last mentrual period: No, Prior GBS-Infected child: No, History of STD: No, HIV Infection: No, History of Hepatitis: No, Recent travel outside of [place]: No, Concern for Hep exposure: No, Varicella immune: Yes Medical History Medical History: Negative: Diabetes, Hypertension, Heart disease, Auto-immune disorder, Kidney disease/UTI, Neurologic/epilepsy, Psychiatric, Depression/ depression, Hepatitis/liver disease, Varicosities/phlebitis, Thyroid dysfunction, Trauma/domestic violence, History of blood transfusions, D (Rh) Sensitized, Pulmonary (e.g.,TB,Asthma), Seasonal allergies, Drug/latex allergies/reactions, Breast, Plant Chief surgery, Operations/hospitalizations, Anesthetic complications, History of abnormal pap, Uterine anomaly/dennis, Infertility, Anti-retroviral treatment, Relevant family history, Other ACOG First Trimester First Trimester: Desire for , Alcohol, Tobacco Cessation, Illicit/Recreational Drug/Substance Use, Intimate Partner Violence, Barriers to care, Unstable Housing, Communication Barriers, Environmental/Work Hazards, Anticipated Course of Care, Nurtrition and weight gain, Toxoplasmosis Precations, Use of Any medications, Sexual activity, Exercise, Dental Care, Sauna/Hot tub use, Seat Belt use, Childbirth classes/Hospital facilities, , Travel, Indications for US and Screening for Aneuploidy ROS Const Denies fever(s), Reports system reviewed and no additional complaints, except as docu, Reports fatigue Eyes Reports system reviewed and no additional complaints, except as docu ENT Reports system reviewed and no additional complaints, except as docu Card Denies chest pain, Denies shortness of breath Resp Reports system reviewed and no additional complaints, except as docu, Denies shortness of breath, Denies cough GI Reports nausea, Denies abdominal pain Reports system reviewed and no additional complaints, except as docu Musc Reports system reviewed and no additional complaints, except as docu Skin/Breast Reports system reviewed and no additional complaints, except as docu Neuro Yes system reviewed and no additional complaints, except as docu Psych Reports system reviewed and no additional complaints, except as docu Endo Reports fatigue, Reports system reviewed and no additional complaints, except as docu Exam Const General: healthy appearing, comfortable, no acute distress Orientation: alert [facility] Head: normal to inspection, atraumatic, normocephalic Ears: external ears normal, hearing grossly normal bilaterally Nose: nares normal, external nose normal Mouth: oral mucosae normal Teeth and gingiva: dentition normal Eyes General: appearance normal, both eyes and all related structures Neck Neck: no lymphadenopathy, supple, normal visual inspection Thyroid: thyroid normal Chest Chest palpation AND inspection: normal inspection of the chest Breast inspection: normal inspection of the breasts, normal inspection of the axillae Breast palpation: normal palpation of the breasts, normal palpation of the axillae Resp Effort AND Inspection: normal respiratory effort GI Inspection: normal to inspection Palpation: soft, no hepatosplenomegaly General: bladder normal to palpation External Female Exam: normal external appearance, normal appearance of the urethra Urethra: normal appearance of the urethra Speculum Exam - Vagina: normal appearance of the vagina, normal vaginal discharge Speculum Exam - Cervix: normal appearance of the cervix Bimanual Exam- Vagina AND Uterus: bladder normal to palpation, normal bimanual exam, uterus non-tender, other Bimanual Exam- Adnexa, other: adnexae non-tender Skin General: no rashes or lesions noted Neuro Motor: muscle tone normal throughout, no movement abnormalities noted Extrem General: normal to inspection, full ROM Assessment AND Plan Problems 1. Encounter for supervision of normal first in first trimester Z34.01 SANDIP 11/04/18 Augusto Plan Patient oriented to practice and discussed care expectations and screenings. ACOG book offered to patient. Discussed routine and specially indicated labs if needed- patient consents to testing. see problem list details for plan information. Genetic screening including carrier screenings, sequential screening, and NIPT screening offered to patient and patient chose: deciding Orders Orders: Supplemental Info ACOG book given and patient encouraged to read about nutrition, exercise, weight gain, and food avoidance in . Coding Level of Care Code OB Routine Diagnoses Encounter for supervision of normal first in first trimester Z34.01 Normal : normal first Trimester: first trimester 04/03/18 2201 <Electronically signed by Ana Miranda MD> Date Ana Miranda MD [facility] Signature: Date (if applicable) CC: CT/NG [facility] BY PCR Collected: 03/31/2018 Status: F Source: REVERE 7:04 PM [facility] REPOSITORY TYPE CODE TESTS RESULT OUT OF RANGE REFERENCE UNITS LAB L8200.2100 Negative Normal Chlam Negative Trac PCR LAB L8200.2200 Negative Normal NG by Negative PCR Performed By: #### L8200.1999, M100.0650 #### [facility] [address] [place], [address] Observed: 03/31/2018 Status: F Source: REVERE CULTURE, URINE 7:04 [facility] REPOSITORY CYTOLOGY INFORMATION: - CLINICAL INFORMATION: - DATE LMP/MENOPAUSE: LMP 01/28/18 - COLLECTION VIAL: Thin Prep Vial - OCEAN FISHING GUIDE SOURCE: CERVICAL - COLLECTION TECHNIQUE: CX BROOM ONLY Urine Culture ORGANISM 1: Mixed Gram Positive Organisms Guttenberg Count 1000-10,000 Performed By: #### L8200.1999, M100.0650 #### [facility] [address] [place], [address] PAP I-G W/RFX Collected: 03/31/2018 Status: F Source: REVERE HRHPV-APTIMA 7:04 PM [facility] REPOSITORY Order Comment: Specimen Comment: No. of containers..01 ThinPrep Vial TYPE CODE TESTS RESULT OUT OF RANGE REFERENCE UNITS LAB L7400.0800 . Normal DIAGN Comment Result Comment: NEGATIVE FOR INTRAEPITHELIAL LESION AND MALIGNANCY. LAB L7400.0900 . Normal ADEQ Comment Result Comment: Satisfactory for evaluation. Endocervical and/or squamous metaplastic cells (endocervical component) are present. LAB L7400.1400 . Normal PERFORM Comment Result Comment: Alessandra Shin, Hop Sorter (ASCP) LAB L7400.2575 . Normal TEST METHOD Comment Result Comment: This liquid based ThinPrep(R) pap test was screened with the use of an image guided system. LAB L7400.2600 . Normal . COMM LAB L7400.2700 . Normal PAPSMR Comment Result Comment: The Pap smear is a screening test designed to aid in the detection of premalignant and malignant conditions of the uterine cervix. It is not a diagnostic procedure and should not be used as the sole means of detecting cervical cancer. Both false-positive and false-negative reports do occur. LAB L7400.2800 . Normal HPV RFLX Comment Result Comment: The HPV DNA reflex criteria were not met with this specimen result therefore, no HPV testing was performed. Performed at: - [facility] [place] [id number] Conveyor Belt Operator: Alesia Keating MD, Phone: [phone] Performed By: #### L7400.0353 #### [facility] (refer to report for specific site) refer to report for address and phone number CBC W/DIFF, AUTOMATED Collected: 03/31/2018 Status: F Source: [place] 1:11 PM [facility] REPOSITORY TYPE CODE TESTS RESULT OUT OF RANGE REFERENCE UNITS LAB L100.1000 4.4-11.0 K/mm3 Normal WBC 5.6 LAB L100.1200 4.2-5.4 M/mm3 Low RBC 4.15 LAB L100.1300 12.0-15.0 g/dl Normal HGB 12.3 LAB L100.1400 37-47 % Normal HCT 37.2 LAB L100.1500 81-99 fL Normal MCV 89.6 LAB L100.1600 27.0-32.0 pg Normal MCH 29.6 LAB L100.1700 32-36 g/gl Normal MCHC 33.1 LAB L100.1810 11.6-14.6 % Normal RDW CV 13.2 LAB L100.1820 35.1-43.9 fl Normal RDW SD 43.2 LAB L100.1900 150-450 K/mm3 Normal PLT 206 LAB L100.2000 6.2-12.0 fl Normal MPV 10.6 LAB L100.2100 47-70 % High NEUT% 73.4 LAB L100.2200 19-41 % Normal LY% 20.7 LAB L100.2300 0-10 % Normal MONO% 5.7 LAB L100.2400 0-5 % Normal EO% 0.2 LAB L100.2500 0-1 % Normal BASO% 0.0 LAB L100.2550 0.0-0.9 % Normal IM GRAN % 0.000 Result Comment: IG% - Immature Granulocytes (promyelocytes, myelocytes and metamyelocytes) > 1% indicates that a LEFT SHIFT is Present. LAB L100.2620 2.0-7.7 X10 3/uL Normal Absolute Neut 4.1 LAB L100.2720 0.83-4.51 X10 3/ul Normal Absolute Lymph 1.17 Performed By: #### L100.0100 #### [facility] [address] [place], [address] TYPE AND SCREEN Collected: 03/31/2018 Status: F Source: REVERE 1:11 PM [facility] REPOSITORY Order Comment: Reason for Type AND Screen/Red Cells: TYPE CODE TESTS RESULT OUT OF RANGE REFERENCE UNITS LAB B10.0800 A Normal BLOOD TYPE GEL POSITIVE LAB B100.4000 Normal Antibody NEGATIVE Screen Performed By: #### B101.7450, L509.4000, L3890.6005 #### [facility] [place], [address] #### L3100.0390 #### [facility] (refer to report for specific site) refer to report for address and phone number RUBELLA IGG Collected: 03/31/2018 Status: F Source: REVERE 1:11 PM [facility] REPOSITORY TYPE CODE TESTS RESULT OUT OF RANGE REFERENCE UNITS LAB L509.4000 IU/mL Normal Rubella IgG 139.1 Result Comment: Antibody results Interpretation of Immune Status < 5 IU/ml Presumed Non-immune 5 - < 10 IU/ml Equivocal > or = 10 IU/ml Presumed Immune Performed By: #### B101.7450, L509.4000, L3890.6005 #### [facility] [address] [place], [address] #### L3100.0390 #### [facility] (refer to report for specific site) refer to report for address and phone number HIV - [facility] Collected: 03/31/2018 Status: F Source: [place] 1:11 PM [facility] REPOSITORY TYPE CODE TESTS RESULT OUT OF RANGE REFERENCE UNITS LAB L3890.6005 Nonreactive Normal HIV - [facility] Non-Reactive Performed By: #### B101.7450, L509.4000, L3890.6005 #### [facility] [address] [place], [place], [address] #### L3100.0390 #### [facility] (refer to report for specific site) refer to report for address and phone number HEPATITIS B SURFACE Collected: 03/31/2018 Status: F Source: [place] AG 1:11 PM [facility] REPOSITORY TYPE CODE TESTS RESULT OUT OF RANGE REFERENCE UNITS LAB L3100.0400 Negative Normal HB Negative SURF AG Result Comment: Performed at: [facility] [id number] Conveyor Belt Operator: Royer De Jesus PhD, Phone: [phone] Performed By: #### B101.7450, L509.4000, L3890.6005 #### [facility] [address] [facility] [place], [address] #### L3100.0390 #### [facility] (refer to report for specific site) refer to report for address and phone number RAPID PLASMIN REAGIN Collected: 03/31/2018 Status: F Source: [place] (RPR) 1:11 PM [facility] REPOSITORY TYPE CODE TESTS RESULT OUT OF REFERENCE UNITS RANGE LAB L700.5000 NONREACTIVE NONREACTIVE Normal RPR Performed By: #### L700.5000 #### [facility] [place], [address] ALLERGIES ALLERGIES DATE TYPE / CODE NAME / CODE REACTION SEVERITY SOURCE 09/16/2018 Drug acetaminophe scratchy throat [facility] Allergy/4160 n/[id number] [facility] [address]236(SNOMED (RXNORM) Repository CT) 09/16/2018 Drug amoxicillin/ Rash [facility] Allergy/4160 [id number]([facility] [address]21(SNOMED XNORM) Repository CT) ENCOUNTERS ENCOUNTERS ADMIT/DISCHARGE ACCOUNT ADMITTING ENCOUNTER LOCATION SOURCE NUMBER CLASS 09/16/2018/09/16/19 [id number] Ambulatory BMSBuilding:B [place] [facility] [place] Repository 09/02/2018/09/02/20 [id number] Ambulatory BMSBuilding:[facility] [place] [address] [facility] Repository 08/24/2018 [id number] [facility] ing[facility]LAB Repository 08/19/2018 [id number] [facility] ing:PAVLAB Repository 08/19/2018/08/19/20 [id number] Ambulatory BMSBuilding:[facility] [place] [address] [facility] Repository 08/12/2018 [id number] Ambulatory Building:[facility] Repository 07/26/2018/07/26/20 [id number] Ambulatory BMSBuilding:[facility] [place] [address] [facility] Repository 06/21/2018/06/21/20 [id number] Ambulatory BMSBuilding:[facility] [place] [address] [facility] Repository 06/10/2018 [id number] Ambulatory Building:[facility] Repository 05/27/2018/05/27/20 [id number] Ambulatory BMSBuilding:[facility] [place] [address] [facility] Repository 05/17/2018 [id number] [facility]US Repository 05/13/2018/05/13/20 [id number] Ambulatory BMSBuilding:[facility] [place] [address] [facility] Repository 04/29/2018/04/29/20 [id number] Ambulatory BMSBuilding:[facility] [place] [address] [facility] Repository 03/31/2018 [id number] [facility] ing:LAB Repository 03/31/2018/03/31/20 [id number] Ambulatory BMSBuilding:[facility] [place] [address] [facility] Repository 02/08/2018 [id number] Ambulatory BMSBuilding:[facility] [place] [facility] Repository PAYERS PAYERS ENCOUNTER GUARANTOR PAYER SUBSCRIBER SOURCE 09/16/2018 NAYANA Dobbs Primary NOT GIVENUNK [place] [id number] E Insurance:SELF PAY [facility] Number: Effective Repository , [place] [address]Tpf: Date:2018-09-16 () 09/02/2018 NAYANA K Primary NOT GIVENUNK [place] [id number] E Insurance:SELF PAY [facility] Number: Effective Repository , [place] [id number]: Date:2018-09-02 (HP) 08/24/2018 NAYANA K Primary NOT GIVENUNK [place] [id number] E Insurance:SELF PAY [facility] Number: Effective Repository , [place] [address]Jwc: Date:2018-08-20 () 08/19/2018 NAYANA K Primary NOT GIVENUNK [place] [id number] E Insurance:SELF PAY [facility] Number: Effective Repository , [place] [address]Lbc: Date:2018-08-19 () 08/19/2018 NAYANA K Primary NOT GIVENUNK [place] [id number] E Insurance:SELF PAY [facility] Number: Effective Repository , [place] [address]Hjp: Date:2018-08-19 () 07/26/2018 NAYANA K Primary NOT GIVENUNK [place] [id number] E Insurance:SELF PAY [facility] Number: Effective Repository , [place] [address]Zdr: Date:2018-07-26 (HP) 06/21/2018 NAYANA K Primary NOT GIVENUNK [place] [id number] E Insurance:SELF PAY [facility] Number: Effective Repository , [place] [address]Mkm: Date:2018-06-21 (HP) 05/27/2018 NAYANA K Primary NOT GIVENUNK [place] [id number] E Insurance:SELF PAY [facility] Number: Effective Repository , [place] [address]Xtd: Date:2018-05-27 () 05/17/2018 NAYANA K Primary NOT GIVENUNK [place] [id number] E Insurance:SELF PAY [facility] Number: Effective Repository , [place] [address]Vyi: Date:2018-05-13 () 05/13/2018 NAYANA K Primary NOT GIVENUNK [place] [id number] E Insurance:SELF PAY [facility] Number: Effective Repository , [place] [address]Yts: Date:2018-05-13 () 04/29/2018 NAYANA K Primary NOT GIVENUNK [place] [id number] E Insurance:SELF PAY [facility] Number: Effective Repository , [place] [address]Iut: Date:2018-04-29 () 03/31/2018 NAYANA K Primary NOT GIVENUNK [place] [id number] E Insurance:SELF PAY [facility] Number: Effective Repository , [place] [address]Ohj: Date:2018-03-31 () 03/31/2018 NAYANA K Primary Insurance:[facility] NAYANA K [place] [id number] E PACKAGE PLANPolicy SHETLERDOB: [facility] Number[facility] [id number] [id number] [facility] , [place] [address]Apb: Date:2018-03-02 () 03/31/2018 Secondary NOT GIVENUNK [place] Insurance:SELF PAY [facility] Number: Effective Repository Date:2018-03-31 02/08/2018 Nayana [id number] Primary NOT GIVENUNK [place] E Ben Insurance:SELF PAY [facility] [place] [address]Ilc: Number: Effective Repository Date:2017-12-29 ()
== END ==
PROVIDERS: Family Provider Family Medicine; PCP Family Medicine; Referring Provider Obstetrics & Gynecology; Visit Provider Obstetrics & Gynecology
DX: Z34.90 Encounter for supervision of normal pregnancy, unspecified, unspecified trimester (principal)
CPT/HCPCS: 36415; 82950; 85025

== ENCOUNTER → 2018-08-24 09:56 | Outpatient (CLI) | payer SELFPAY ==
[2018-08-19 10:20] VITALS: BMI 23.1
[2018-08-24 10:31] LABS: Bedside Glucose 81 mg/dL (70-110)
[2018-08-24 11:23] LABS: Glucose GTT-Gestation. Fasting 83 mg/dL (<105)
[2018-08-24 11:59] LABS: Glucose GTT-Gestational 1 Hr 132 mg/dL (<190)
[2018-08-24 13:58] LABS: Glucose GTT-Gestational 2 Hr 148 mg/dL (<165)
[2018-08-24 14:47] LABS: Glucose GTT-Gestational 3 Hr 74 L (<145)
--- OUTSIDE RECORDS SUMMARY | 2018-11-25 17:04 | XMS RPT_ITS ---
:1995 Author Organization OHIP Support Name Relationship Address Phone RUBIN CHRISTINE Unavailable [address] + [place] [address] UE Unavailable Unavailable Unavailable NANCI, RUBIN Unavailable [address] + [place] [address] UE Unavailable Unavailable Unavailable NANCI, RUBIN Unavailable [address] + [place] [address] UE Unavailable Unavailable Unavailable NANCI, RUBIN Unavailable [address] + [place] [address] UE Unavailable Unavailable Unavailable [employer] Unavailable [address] + [place] [address] NANCI, RUBIN Unavailable [address] + [place] [address] NANCI, NAYANA Unavailable [address] + [place] [address] [employer] Unavailable [address] + [place] [address] NANCI, RUBIN Unavailable [address] + [place] [address] [employer] Unavailable [address] + [place] [address] NANCI, RUBIN Unavailable [address] + [place] [address] NANCI NAYANA Unavailable [address] + [place] [address] [employer] Unavailable [address] + [place] [address] NANCI, RUBIN Unavailable [address] + [place] [address] [employer] Unavailable [address] + [place] [address] NANCI, RUBIN Unavailable [address] + [place] [address] [employer] Unavailable [address] + [place] [address] NANCI, RUSTUIN Unavailable [address] + [place] [address] [employer] Unavailable [address] + [place] [address] NANCI, RUSTUIN Unavailable [address] + [place] [address] [employer] Unavailable [address] + [place] [address] NANCI, RUSTUIN Unavailable [address] + [place] [address] [employer] Unavailable [address] + [place] [address] NANCI, RUSTUIN Unavailable [address] + [place] [address] NANCI, RUSTUIN Unavailable [address] + [place] [address] UE Unavailable Unavailable Unavailable Care Team Providers [...] Referring Unavailable Megan, Young Primary Care Unavailable Perry, Kaitlynn Attending Unavailable Perry, Kaitlynn Attending Unavailable Megan, Young Referring Unavailable [...] 09/16/2018 Unknown Z34.03 - Encounter Marcanthony, Active [place] for supervision [facility] normal first Hospital , third Repository trimester / Z34.03(ICD-10) 09/16/2018 Unknown O99.815 - Abnormal Marcanthony, Active [place] glucose [facility] complicating the Hospital puerperium / Repository O99.815(ICD-10) 09/16/2018 Unknown Z3A.33 - 33 weeks Marcanthony, Active [place] gestation of [facility] / Hospital Z3A.33(ICD-10) Repository 09/02/2018 Unknown Z3A.31 - 31 weeks Marcanthony, Active [place] gestation of [facility] / Hospital Z3A.31(ICD-10) Repository 08/19/2018 Unknown Z34.90 - Encounter Marcanthony, Active [place] for supervision of [facility] normal , Hospital unspecified, Repository unspecified trimester / Z34.90(ICD-10) 08/19/2018 Unknown Z3A.29 - 29 weeks Marcanthony, Active [place] gestation of [facility] / Hospital Z3A.29(ICD-10) Repository 08/19/2018 Unknown Z34.02 - Encounter Marcanthony, Active [place] for supervision of [facility] normal first Hospital , second Repository trimester / Z34.02(ICD-10) 07/26/2018 Unknown O44.40 - Low lying Marcanthony, Active [place] placenta NOS or [facility] without Hospital hemorrhage, Repository unspecified trimester / O44.40(ICD-10) 07/26/2018 Unknown Z3A.25 - 25 weeks Tayanthcheikh, Active [place] gestation of [facility] / Hospital Z3A.25(ICD-10) Repository 06/21/2018 Unknown Z3A.21 - 21 weeks Joe, Active [place] gestation of [facility] / Hospital Z3A.21(ICD-10) Repository 05/13/2018 Unknown O20.8 - Other OmarKaitlynn higgins Active [place] hemorrhage in [facility] early / Hospital O20.8(ICD-10) Repository 05/07/2018 Unknown Z36.9 - Encounter Kaitlynn Nelson Active [place] for Community screening, Hospital unspecified / Repository Z36.9(ICD-10) 05/07/2018 Unknown Z3A.12 - 12 weeks Kaitlynn Nelson Active [place] gestation of [facility] / Hospital Z3A.12(ICD-10) Repository 05/07/2018 Unknown Z34.00 - Encounter Joe, Active [place] for supervision of [facility] normal [facility] , Repository unspecified trimester / Z34.00(ICD-10) 05/07/2018 Unknown Z34.01 - Encounter Tayanthcheikh, Active [place] for supervision of [facility] normal [facility] Hospital , first Repository trimester / Z34.01(ICD-10) PROCEDURES PROCEDURES No Procedure Records FoundRESULTS RESULTS SENIOR ORACLE APPLICATIONS DEVELOPER OFFICE VISIT Observed: 09/16/2018 Status: F Source: [place] REPORT 2:40 PM [facility] REPOSIT[facility] [address] [place] [address] [address] [place] [address] OFFICE VISIT Date of Service: 09/16/18 MR#: [id number] Acct: [id number] Name: NAYANA CHRISTINE Rep #: [id number] : 1995 Provider: Ana Miranda MD Age/Sex: 23/F Location: [facility] Status: Signed Intake Vital Signs09/16/18 Body Mass Index (BMI) 23.1 09/16/18 Height 5 ft 11 in 09/16/18 Weight: 167 lb 09/16/18 Body Mass Index (BMI) 23.3 09/16/18 Blood Pressure 100/56 L Intake Visit Reasons: 32 WEEK OB Chief Complaint: est ob 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 Y [...] 3HR 74 Performed By: #### L500.4710 #### [facility] [address] [facility] [place], [place], [address] BEDSIDE GLUCOSE Collected: 08/24/2018 Status: F Source: [place] 10:14 AM [facility] REPOSITORY TYPE CODE TESTS RESULT OUT OF RANGE REFERENCE UNITS LAB L501.080 70-110 mg/dL Normal BEDSIDE GLU 81 Result Comment: MANAGEMENT OF PATIENT CARE PER NURSING PROTOCOL Performed By: #### L501.080 #### [facility] Point of Care [address] [facility] [address] CBC W/DIFF, AUTOMATED Collected: 08/19/2018 Status: F Source: [place] 11:23 AM [facility] REPOSITORY TYPE CODE TESTS RESULT OUT OF [...] Lymph 1.09 Performed By: #### L100.0100 #### [facility] [address] [place], [address] GLUCOSE CHALLENGE GEST Collected: 08/19/2018 Status: F Source: [place] 1H 50G 11:23 AM [facility] REPOSITORY Order Comment: Comments: blood draw at 11:26 Comments: blood draw at 11:26 TYPE CODE TESTS RESULT OUT OF RANGE REFERENCE UNITS LAB L501.0250 70-140 mg/dL High GLU GEST 168 50g 1H Performed By: #### L501.0250 #### [facility] [address] [place], [address] SENIOR ORACLE APPLICATIONS DEVELOPER OFFICE VISIT Observed: 08/19/2018 Status: F Source: [place] REPORT 10:50 AM [facility] REPOSITORY [facility] [address] [place] [address] OFFICE VISIT Date of Service: 08/19/18 MR#: [id number] Acct: [id number] Name: NAYANA CHRISTINE Rep #: [id number] : 1995 Provider: Ana Miranda MD Age/Sex: 23/F Location: [facility] Status: Signed with Addenda ADDENDUM by Lizette Valentine on 08/19/18 at 1050 OFFICE PROCEDURES Office Procedure Documentation entered by Lizette Valentine 08/19/18 10:50: Immunizations Adacel (Tdap Adolesn/Adult)(PF)2Lf-(2.5-5-3-5mcg)-5 Lf/0.5 mL IM susp Performing Provider: Ana Miranda MD Administered by: Lizette Valentine on 08/19/18 10:48 Dose Route Admin Location Lot Number Expiration Date NDC Training Project Manager 0.5 mL IM Left Arm (SQ) [id number] 07/01/20 67830-292-23 [employer] VIS Given Date VIS Publication Date 08/19/18 10/31/14 Eligibility Eligibility Date 08/19/18 1050 <Electronically signed by Lizette Valentine > Date Lizette Valentine cc: * Signed Intake Vital Signs08/19/18 Body Mass Index (BMI) 23.1 08/19/18 Height 5 ft 10 in 08/19/18 Weight: 163 lb 4 oz 08/19/18 Body Mass Index (BMI) 23.4 08/19/18 Blood Pressure 110/72 Intake Visit Reasons: 28 WEEK OB 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 [employer] Pregancy History 1 Elective abortions Hx Para Spontaneous abortions HPI 20 WEEK OB: Details: ANYANA CHRISTINE is a 22 year old who [...] MD Cosign Signature: Date (if applicable) CC: SENIOR ORACLE APPLICATIONS DEVELOPER OFFICE VISIT Observed: 05/27/2018 Status: F Source: [place] RE[place] 3:33 PM [facility] [address] [place] [address] OFFICE VISIT Date of Service: 05/27/18 MR#: [id number] Acct: [id number] Name: NAYANA CHRISTINE Rep #: [id number] : 1995 Provider: CELIA Nelson Age/Sex: 22/F Location: [facility] Status: Signed Intake Vital Signs05/27/18 Height 5 ft 10 in 05/27/18 Weight: 153 lb 4 oz 05/27/18 Body Mass Index (BMI) 21.9 05/27/18 Blood Pressure 115/58 Intake Visit Reasons: 16 WEEK OB 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 Is patient in pain?: No [...] at home: Yes 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 [employer] Pregancy History 1 Elective abortions Hx Para [...] LIMITED WITH Observed: 05/17/2018 Status: F Source: [place] BIOMETRICS 11:32 AM [facility] REPOSITORY [facility] [address] [place] [address] OB Limited With Biometrics MR#: [id number] Acct: [id number] Name: NAYANA CHRISTINE Rep #: [id number] : 1995 F 22 From: Mike Reeves MD PCP: Young Guzman MD Status: REG CLI Study: OB Limited With Biometrics Date of Exam: 05/17/18 Exam# [id number] Ordering Dr: Kaitlynn Nelson STUDY: SECOND AND [...] , CC: CELIA Nelson; Young Guzman MD Cashiers Supervisor: Signed SENIOR ORACLE APPLICATIONS DEVELOPER OFFICE VISIT Observed: 05/13/2018 Status: F Source: [place] REPORT 1:59 PM [facility] [address] [place] [address]. 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 screening encounter Z36.9 Genetic [...] Signature: Date (if applicable) Kaitlynn Nelson CC: SENIOR ORACLE APPLICATIONS DEVELOPER OFFICE VISIT Observed: 04/03/2018 Status: F Source: [place] REPORT 10:01 PM [facility] [place] [address] 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 [employer] Pregancy History 1 Elective abortions Hx Para [...] Pulmonary (e.g.,TB,Asthma), Seasonal allergies, Drug/latex allergies/reactions, Breast, Digital Performance Analyst surgery, Operations/hospitalizations, Anesthetic complications, History of abnormal [...] appearing, comfortable, no acute distress Orientation: alert [facility] Head: normal to inspection, atraumatic, [...] Ana Miranda MD> Date Ana Miranda MD [facility] Signature: Date (if applicable) CC: CT/NG [facility] BY PCR Collected: 03/31/2018 Status: F Source: [place] 7:04 PM [facility] REPOSITORY TYPE CODE TESTS RESULT OUT OF RANGE REFERENCE UNITS LAB L8200.2100 Negative Normal Chlam Negative Trac PCR LAB L8200.2200 Negative Normal NG by Negative PCR Performed By: #### L8200.1999, M100.0650 #### [facility] [address] 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, [address] PAP I-G W/RFX Collected: 03/31/2018 Status: F Source: [place] HRHPV-APTIMA 7:04 PM [facility] REPOSITORY Order Comment: Specimen Comment: No. of containers..01 ThinPrep Vial TYPE CODE TESTS RESULT OUT OF RANGE REFERENCE UNITS LAB L7400.0800 . Normal DIAGN Comment Result Comment: NEGATIVE FOR INTRAEPITHELIAL LESION AND MALIGNANCY. LAB L7400.0900 . Normal ADEQ Comment Result Comment: Satisfactory for evaluation. Endocervical and/or squamous metaplastic cells (endocervical component) are present. LAB L7400.1400 . Normal PERFORM Comment Result Comment: Alessandra Shin, Bliss Press Operator (ASCP) LAB L7400.2575 . Normal TEST METHOD [...] HPV testing was performed. Performed at: - [facility] [place] [id number] Senior Hydrogeologist: Alesia Keating MD, Phone: [phone] Performed By: #### L7400.0353 #### [facility] (refer to report for specific site) refer to report for address and phone number CBC W/DIFF, AUTOMATED Collected: 03/31/2018 Status: F Source: [place] 1:11 PM [facility] REPOSITORY TYPE CODE TESTS RESULT OUT OF [...] Lymph 1.17 Performed By: #### L100.0100 #### [facility] [address] [place], [address] TYPE AND SCREEN Collected: 03/31/2018 Status: F Source: [place] 1:11 PM [facility] REPOSITORY Order Comment: Reason for Type AND Screen/Red Cells: TYPE CODE TESTS RESULT OUT OF RANGE REFERENCE UNITS LAB B10.0800 A Normal BLOOD TYPE GEL POSITIVE LAB B100.4000 Normal Antibody NEGATIVE Screen Performed By: #### B101.7450, L509.4000, L3890.6005 #### [facility] [place], [address] #### L3100.0390 #### [facility] (refer to report for specific site) refer to report for address and phone number RUBELLA IGG Collected: 03/31/2018 Status: F Source: [place] 1:11 PM [facility] REPOSITORY TYPE CODE TESTS RESULT OUT OF RANGE REFERENCE UNITS LAB L509.4000 IU/mL Normal Rubella IgG 139.1 Result Comment: Antibody results Interpretation of Immune Status < 5 IU/ml Presumed Non-immune 5 - < 10 IU/ml Equivocal > or = 10 IU/ml Presumed Immune Performed By: #### B101.7450, L509.4000, L3890.6005 #### [facility] [address] [place], [address] #### L3100.0390 #### [facility] (refer to report for specific site) refer to report for address and phone number HIV - [facility] Collected: 03/31/2018 Status: F Source: [place] 1:11 PM [facility] REPOSITORY TYPE CODE TESTS RESULT OUT OF RANGE REFERENCE UNITS LAB L3890.6005 Nonreactive Normal HIV - [facility] Non-Reactive Performed By: #### B101.7450, L509.4000, L3890.6005 #### [facility] [address] [place], [place], [address] #### L3100.0390 #### [facility] (refer to report for specific site) refer to report for address and phone number HEPATITIS B SURFACE Collected: 03/31/2018 Status: F Source: [place] AG 1:11 PM [facility] REPOSITORY TYPE CODE TESTS RESULT OUT OF RANGE REFERENCE UNITS LAB L3100.0400 Negative Normal HB Negative SURF AG Result Comment: Performed at: [facility] [id number] Senior Hydrogeologist: Royer De Jesus PhD, Phone: [phone] Performed By: #### B101.7450, L509.4000, L3890.6005 #### [facility] [address] [facility], [address] #### L3100.0390 #### [facility] (refer to report for specific site) refer to report for address and phone number RAPID PLASMIN REAGIN Collected: 03/31/2018 Status: F Source: [place] (RPR) 1:11 PM [facility] REPOSITORY TYPE CODE TESTS RESULT OUT OF REFERENCE UNITS RANGE LAB L700.5000 NONREACTIVE NONREACTIVE Normal RPR Performed By: #### L700.5000 #### [facility], [address] ALLERGIES ALLERGIES DATE TYPE / CODE NAME / CODE REACTION SEVERITY SOURCE 09/16/2018 Drug acetaminophe scratchy throat [facility] Allergy/4160 n/[id number] [facility] [address](SNOMED (RXNORM) Repository CT) 09/16/2018 Drug amoxicillin/ Rash [facility] Allergy/4160 [id number]([facility] [address]31(SNOMED XNORM) Repository CT) ENCOUNTERS ENCOUNTERS ADMIT/DISCHARGE ACCOUNT ADMITTING ENCOUNTER LOCATION SOURCE NUMBER CLASS 09/16/2018/09/16/19 [id number] Ambulatory BMSBuilding:[facility] [place] [facility] Repository 09/02/2018/09/02/20 [id number] Ambulatory BMSBuilding:B [place] [facility] Repository 08/24/2018 [id number] [facility]ulatory [facility] ing:LAB Repository 08/19/2018 [id number] [facility] ing:PAVLAB Repository 08/19/2018/08/19/20 [id number] Ambulatory BMSBuilding:[facility] [place] [facility] Repository 08/12/2018 [id number] Ambulatory Building:[facility] Repository 07/26/2018/07/26/20 [id number] Ambulatory BMSBuilding:[facility] [place] [facility] Repository 06/21/2018/06/21/20 [id number] Ambulatory BMSBuilding:[facility] [place] [facility] Repository 06/10/2018 [id number] Ambulatory Building:[facility] Repository 05/27/2018/05/27/20 [id number] Ambulatory BMSBuilding:B [place] 18 [facility] Repository 05/17/2018 [id number] [facility] Repository 05/13/2018/05/13/20 [id number] Ambulatory BMSBuilding:B [place] 18 [facility] Repository 04/29/2018/04/29/20 [id number] Ambulatory BMSBuilding:[facility] [place] [facility] [place] Repository 03/31/2018 [id number] [facility] ing:LAB Repository 03/31/2018/03/31/20 [id number] Ambulatory BMSBuilding:[facility] [place] [facility] Repository 02/08/2018 [id number] Ambulatory BMSBuilding:[facility] [place] [facility] Repository PAYERS PAYERS ENCOUNTER GUARANTOR PAYER SUBSCRIBER SOURCE 09/16/2018 NAYANA Dobbs Primary NOT GIVENUNK [place] [id number] Insurance:SELF PAY [facility] Number: Effective Repository , [place] [address]Gsg: Date:2018-09-16 () 09/02/2018 NAYANA K Primary NOT GIVENUNK [place] [id number] E Insurance:SELF PAY [facility] Number: Effective Repository , [place] [address]Cqu: Date:2018-09-02 (HP) 08/24/2018 NAYANA K Primary NOT GIVENUNK [place] [id number] E Insurance:SELF PAY [facility] Number: Effective Repository , [place] [address]Qtu: Date:2018-08-20 () 08/19/2018 NAYANA K Primary NOT GIVENUNK [place] [id number] E Insurance:SELF PAY [facility] Number: Effective Repository , [place] [address]Hfy: Date:2018-08-19 () 08/19/2018 NAYANA K Primary NOT GIVENUNK [place] [id number] E Insurance:SELF PAY [facility] Number: Effective Repository , [place] [address]Rfn: Date:2018-08-19 () 07/26/2018 NAYANA K Primary NOT GIVENUNK [place] [id number] E Insurance:SELF PAY [facility] Number: Effective Repository , [place] [address]Dop: Date:2018-07-26 (HP) 06/21/2018 NAYANA K Primary NOT GIVENUNK [place] [id number] Insurance:SELF PAY [facility] Number: Effective [place] , [place] [address]Ziv: Date:2018-06-21 (HP) 05/27/2018 NAYANA K Primary NOT GIVENUNK [place] [id number] Insurance:SELF PAY [facility] Number: Effective [place] , [place] [address]Mde: Date:2018-05-27 () 05/17/2018 NAYANA K Primary NOT GIVENUNK [place] [id number] Insurance:SELF PAY [facility] Number: Effective Repository , [place] [address]Btf: Date:2018-05-13 () 05/13/2018 NAYANA K Primary NOT GIVENUNK [place] [id number] Insurance:SELF PAY [facility] Number: Effective Repository , [place] [address]Suz: Date:2018-05-13 () 04/29/2018 NAYANA K Primary NOT GIVENUNK [place] [id number] Insurance:SELF PAY [facility] Number: Effective [place]ository , [place] [address]Fkb: Date:2018-04-29 () 03/31/2018 NAYANA K Primary NOT GIVENUNK [place] [id number] [address] Insurance:SELF PAY [facility] Number: Effective [place] , [place] [id number]: Date:2018-03-31 () 03/31/2018 NAYANA K Primary Insurance:[facility] NAYANA K [place] [id number] PACKAGE PLANPolicy SHETLERDOB: [id number] , [place] [address]Ieg: Date:2018-03-02 () 03/31/2018 Secondary NOT GIVENUNK [place] Insurance:SELF PAY [facility] Number: Effective Repository Date:2018-03-31 02/08/2018 Nayana [id number] Primary NOT GIVENUNK [place] E Ben Insurance:SELF PAY [facility] [place] [address]Mpy: Number: Effective Repository Date:2017-12-29 ()
== END ==
PROVIDERS: Family Provider Family Medicine; PCP Family Medicine; Referring Provider Nurse Practitioner Women's Health; Visit Provider Nurse Practitioner Women's Health
DX: O99.810 Abnormal glucose complicating pregnancy (principal); Z3A.00 Weeks of gestation of pregnancy not specified
CPT/HCPCS: 36415; 82951; 82952; 82962

== ENCOUNTER → 2018-10-15 16:37 | Outpatient (CLI) | payer SELFPAY ==
[2018-10-15 10:50] VITALS: BMI 23.1
== END ==
PROVIDERS: Family Provider Family Medicine; PCP Family Medicine; Referring Provider Obstetrics & Gynecology; Visit Provider Obstetrics & Gynecology
DX: Z34.90 Encounter for supervision of normal pregnancy, unspecified, unspecified trimester (principal)
CPT/HCPCS: 87077; 87081; 87186

== ENCOUNTER 2018-10-28 08:17 | Inpatient (IN) | payer SELFPAY ==
[2018-10-27 10:33] VITALS: BMI 23.1
[2018-10-28 08:30] VITALS: BMI 23.7
[2018-10-28] MEDS: Lactated Ringers 1,000 ML 50 ML IV ×2 (08:30→12:48)
[2018-10-28 08:48] LABS: Hematocrit 41.3 % (37-47); Hemoglobin 13.9 g/dl (12.0-15.0); Mean Corp Hgb Conc 33.7 g/gl (32-36); Mean Corpuscular Hgb 31.1 pg (27.0-32.0); Mean Corpuscular Volume 92.4 fL (81-99); Mean Platelet Vol. 11.1 fl (6.2-12.0); Platelet Count 168 K/mm3 (150-450); RBC Distribution Width CV 12.6 % (11.6-14.6); RBC Distribution Width SD 41.9 fl (35.1-43.9); Red Blood Count 4.47 M/mm3 (4.2-5.4); White Blood Count 14.3 K/mm3 (4.4-11.0)
[2018-10-28 08:49] LABS: Scan Indicated on CBC? Y/N NO
[2018-10-28] MEDS: fentaNYL-bupivacaine (epidural) 100 ML BAG EPIDURAL ×2 (09:30→13:48)
--- NOTE | 2018-10-28 13:03 | HP.PCM_ITS ---
- Problem List (1) GBS (group B Streptococcus carrier), +RV culture, currently Status: Acute Comment: plan vancomycin at delivery (2) Abnormal glucose complicating puerperium Status: Acute Comment: 3 hr GTT normal (3) Status: Acute Qualifiers: Comment: Declines genetic, carrier, and NTD screens. normal anatomy scan. (4) Supervision of normal Status: Acute Qualifiers: Comment: PRR SANDIP 11/04/18 boy Brock Augusto History Date of Admission: 10/28/18 Final SANDIP: 11/04/18 Gestational age: 39 Weeks and 0 Days History of this : This is a 23 year-old, at 39 weeks gestational age presents IAL 7 cm dilated. she is gbs positive Surgical History: Surgical History (Last Reviewed 10/27/18 @ 10:33 by Tona Dillon) S/P nasal surgery Z98.890 Allergies acetaminophen [From Tylenol] Allergy (Mild, Verified 10/28/18 08:31) scratchy throat amoxicillin Allergy (Mild, Verified 10/28/18 08:31) rash Home Medications: Home Medications Pnv No.95/Ferrous Fum/Folic AC [ Vitamin Tablet] 1 tab PO DAILY 10/28/18 Smoking Status: Never smoker Alcohol: None Number of Fetus(es): 1 Heart Tracin moderate variability reactive no decelerations category I tracing [place]: regular History Past Pregnancies: Past Pregnancies Delivery Date Name GA/Weeks Outcome Route Weight Gender Labor Length Anesthesia Delivery Location Provider FOB Labs: Mom's Labs & Results 10/28/18 10/28/18 08:30 08:30 WBC 14.3 H RBC 4.47 Hgb 13.9 Hct 41.3 MCV 92.4 MCH 31.1 MCHC 33.7 RDW 12.6 RDW Differential 41.9 Plt Count 168 MPV 11.1 Blood Type A POSITIVE Antibody Screen NEGATIVE Course Did the patient receive Yes care? Labs Blood Type: A RH: POSITIVE RPR/VDRL/Syphilis Nonreactive Rubella status Immune HbSAg Negative Date Done: 03/31/18 Chlamydia Negative Gonorrhea Negative HIV/AIDS Non-Reactive Group B Strep: Positive Current Obstetrical History Gestational Diabetes No Incompetent Cervix No Infertility No IUGR No Macrosomia No Hypertension/Pre-eclampsia No Placenta Previa/Abruption No PTL/PROM No Uterine anomaly No Oligohydramnios No Polyhydramnios No Multiple gestation No Past Medical History Asthma No Diabetes No Hypertension No Heart disease No Mitral valve prolapse No Neurologic/Seizure disorder/ Yes: hx migraines have resolved Migraines Kidney disease No Liver disease No Varicosities No Clotting disorders/Hx of DVT No Thyroid Dysfunction No Other medical diseases No Psychiatric disorders No Major trauma No Abnormal PAP smear No Sleep apnea No Mammogram in the last 2 years No Social History Marital Status: Alleged father Augusto Gibbs Hx Smoking No Smoking Status Never smoker How long have you used n/a substances (years)? What date/time did you last n/a use any of the above? Have you had any previous n/a inpatient or outpatient treatment Expected Infant Delivery Method: Spontaneous Vaginal Review of Systems Constitutional: Denies: Fever, Malaise Eyes: Denies: Blurred vision, Vision Change HEENT: Denies: Head Aches, Visual Changes Cardiovascular: Denies: Chest Pain, Palpitations Respiratory: Denies: Cough, Shortness of Breath, Wheezing Gastrointestinal: Denies: Abdominal Pain, Diarrhea, Nausea, Vomiting Genitourinary: Denies: Dysuria, Hematuria Musculoskeletal: Denies: Joint Pain, Muscle pain Skin: Denies: Lesions, Rash Neurological: Denies: Blurred vision, Focal weakness, Headaches Psychiatric: Denies: Anxiety, Depression Endocrine: Denies: Heat/ Cold Intolerance Hematologic/ Lymphatic: Denies: Easy Bruising, Easy Bleeding Physical Exam General: Alert, Cooperative, No apparent distress HEENT: Atraumatic, Normocephalic. Negative for: Thyromegaly, Lymphadenopathy Cardiovascular: Regular rate Lungs: Normal air movement Abdomen: Soft, Non Tender, Gravid Neurological: Deep Tendon Reflexes 2+/4 and Symmetrical, Neuro grossly intact. Negative for: Clonus [employer] [employer]: Normal external genitalia. Negative for: Vulvar lesions Estimated gestational size: Appropriate for gestational size Presentation: Cephalic Assessment/Plan All Active Problems (Last Reviewed 10/27/18 @ 10:33 by Tona Dillon) GBS (group B Streptococcus carrier), +RV culture, currently (Acute) Abnormal glucose complicating puerperium (Acute) (Acute) Supervision of normal (Acute) Low lying placenta, antepartum (Resolved) Placenta previa (Resolved) This is a 23 year-old, at 39 weeks gestational age presents IAL Patient presents IAL, plan expectant management for , pitocin prn/AROM done. Pain management: plans epidural. GBS positive plan IV clindamycin Management of any complications: none I have reviewed the [facility] and made any clinically relevant updates.
[2018-10-28] MEDS: Oxytocin 30 units/NS 500 ml 30 UNITS/500 ML IV.SOLN 334 UNITS IV (15:35)
[2018-10-28] MEDS: Oxytocin 30 units/NS 500 ml 30 UNITS/500 ML IV.SOLN 167 UNITS IV (16:05)
--- NOTE | 2018-10-28 17:06 | PCM.OB.VAG ---
- Problem List (1) GBS (group B Streptococcus carrier), +RV culture, currently Status: Acute Comment: plan vancomycin at delivery (2) Abnormal glucose complicating puerperium Status: Acute Comment: 3 hr GTT normal (3) Status: Acute Qualifiers: Comment: Declines genetic, carrier, and NTD screens. normal anatomy scan. (4) Supervision of normal Status: Acute Qualifiers: Comment: PRR SANDIP 11/04/18 boy Brock Rustyn Vaginal Delivery Maternal Presentation: Active Labor ial 7 cm Amniotic Membrane Rupture Type: Artificial Amniotic Fluid Description: Clear Final SANDIP: 11/04/18 Gestational age: 39 Weeks and 0 Days Date of Procedure: 10/28/18 Pre-Operative Diagnosis: ial Post-Operative Diagnosis: ial Surgery/ Procedure Performed: Spontaneous Vaginal Delivery Type of Anesthesia: Epidural Description of Procedure: Patient began pushing and delivered the head in the CARLOS presentation. The head was delivered atraumatically. The anterior and posterior shoulders delivered without complication followed by the rest of the infant and the infant was placed on the maternal abdomen. Delayed cord clamping was employed for approximately 60 seconds. Cord was clamped and cut and gentle traction was applied to the cord and the placenta delivered spontaneously immediately following it was noted to be intact with three-vessel cord. The perineum and vagina were inspected and noted to have a 1st degree perineal laceration that was repaired in the usual fashion with 2-0 vicryl. EBL was 400 cc. Patient and tolerated delivery well. Presentation: CARLOS Placental Delivery Description: Spontaneous Placenta Disposition: [facility] Cord Vessel Description: 3 Vessels Cord Entanglement: None Estimated Blood Loss: 400 Infant A gender: Male Laceration: Perineal Extension/lac, 1st degree Medications given after delivery: IV Pitocin Complications: None
[2018-10-28 17:45] VITALS: BP 131/75; PULSE 72; RESP 16; TEMP 36.7; O2SAT 100
[2018-10-28] MEDS: Ibuprofen 600 MG Tablet PO (19:29)
[2018-10-28 20:50] VITALS: BP 108/60; PULSE 90; RESP 16; TEMP 36.8
[2018-10-29 00:15] VITALS: BP 96/53; PULSE 56; RESP 18; TEMP 36.8
[2018-10-29] MEDS: Ibuprofen 600 MG Tablet PO ×3 (04:29→20:56)
[2018-10-29 04:30] VITALS: BP 100/53; PULSE 57; RESP 18; TEMP 36.6
[2018-10-29 07:55] VITALS: BP 105/56; PULSE 65; RESP 16; TEMP 37.3
--- NOTE | 2018-10-29 11:09 | PCM.PN.OB ---
Subjective: Doing well. Denies CP, SOB. Some difficulty with . - Physical Exam General: Alert, Oriented x3 Abdomen: Soft, Non Tender, - - FF below U Vital Signs Temp Pulse Resp BP Pulse Ox 99.1 F 65 16 105/56 L 100 10/29/18 07:55 10/29/18 07:55 10/29/18 07:55 10/29/18 07:55 10/28/18 17:45 Oxygen Delivery Method Room Air Weight: 170 lb Body Mass Index (BMI) 23.7 Intake and Output for Last 24 Hours 10/27/18 10/28/18 10/29/18 23:59 23:59 23:59 Intake Total 2325 / 2325 Output Total 1300 / 1300 500 / 500 Balance 1025 / 1025 -500 / -500 Medical Necessity - Tobacco Use Smoking Status: Never smoker Assessment/Plan All Active Problems (Last Reviewed 10/27/18 @ 10:33 by Tona Dillon) GBS (group B Streptococcus carrier), +RV culture, currently (Acute) Abnormal glucose complicating puerperium (Acute) (Acute) Supervision of normal (Acute) Low lying placenta, antepartum (Resolved) Placenta previa (Resolved) PPD#1: Routine care. support today.
[2018-10-29 12:05] VITALS: BP 112/59; PULSE 68; RESP 14; TEMP 36.6
[2018-10-29] MEDS: Prenatal Vits Tablet 1 TABLET PO (12:05)
[2018-10-29] MEDS: Senna/Docusate Sodium 1 Tablet PO (12:05)
[2018-10-29 16:51] VITALS: BP 107/53; PULSE 71; RESP 14; TEMP 36.9
[2018-10-29 20:45] VITALS: BP 111/57; PULSE 73; RESP 16; TEMP 36.6; O2SAT 98
[2018-10-30 02:45] VITALS: BP 111/61; PULSE 62; RESP 14; TEMP 36.4; O2SAT 97
[2018-10-30] MEDS: Ibuprofen 600 MG Tablet PO ×2 (06:32→13:19)
[2018-10-30 10:00] VITALS: BP 107/57; PULSE 68; RESP 16; TEMP 36.6
[2018-10-30] MEDS: Senna/Docusate Sodium 1 Tablet PO (10:59)
--- NOTE | 2018-10-30 12:24 | PCM.PN.OB ---
Subjective: doing well no complaints pain controlled no CP SOB N V ambulating well tolerating po lochia moderate, going well - Physical Exam General: Alert, Oriented x3 Vital Signs Temp Pulse Resp BP Pulse Ox 97.6 F L 62 14 111/61 97 10/30/18 02:45 10/30/18 02:45 10/30/18 02:45 10/30/18 02:45 10/30/18 02:45 Oxygen Delivery Method Room Air Weight: 170 lb Body Mass Index (BMI) 23.7 Intake and Output for Last 24 Hours 10/28/18 10/29/18 10/30/18 23:59 23:59 23:59 Intake Total 2325 / 2325 Output Total 1300 / 1300 500 / 500 Balance 1025 / 1025 -500 / -500 Medical Necessity - Tobacco Use Smoking Status: Never smoker Assessment/Plan All Active Problems (Last Reviewed 10/27/18 @ 10:33 by Tona Dillon) GBS (group B Streptococcus carrier), +RV culture, currently (Acute) Abnormal glucose complicating puerperium (Acute) (Acute) Supervision of normal (Acute) Low lying placenta, antepartum (Resolved) Placenta previa (Resolved) s/p PPD # 2 1. routine post delivery care 2. breast feeding- support given 3. rh positive 4. rubella immune
--- NOTE | 2018-10-30 12:25 | DCINST_ITS ---
Discharge Diet: No Restrictions Discharge Activity: Return to Normal Activity, May not drive while taking narcotic pain medications., May Shower May resume sexual activity in: 4-6 weeks Call your doctor if your incision/area has: Continuous Slow Oozing, Sudden Increased Bleeding, Increased Pain/ Swelling, Increased Redness, Foul Smelling Discharge Additional Instructions: If you experience any of the following, contact your healthcare provider. * Bleeding that soaks a pad every hour for 2 hours * Fever 100.4 or higher * Unrelieved incision or abdominal pain * Swelling, redness, discharge or bleeding from your incision or episiotomy site * Your incision begins to separate * Problems urinating (including inability to urinate or burning while urinating). * Visual changes * Severe headache * Flu-like symptoms * Pain or redness in one of both of your breasts * Pain, warmth, tenderness or swelling in your legs, especially the calf area * Frequent nausea and vomiting * Symptoms of depression or anxiety If you experience any of the following, call 911 or go to the nearest Emergency Room. * Chest pain * Problems breathing * Seizure activity * Partial or complete paralysis of a body part, slurred speech, weakness or drooping of the face, or a sudden inability to walk or hold your balance Allergies/Adverse Reactions: Allergies acetaminophen [From Tylenol] Allergy (Mild, Verified 10/28/18 08:31) scratchy throat amoxicillin Allergy (Mild, Verified 10/28/18 08:31) rash Medications to take at Discharge Pnv No.95/Ferrous Fum/Folic AC [ Vitamin Tablet] 1 tab PO DAILY 10/28/18 Please Follow Up With: Ana Diaz MD - [phone] When: Call to make an appointment with your doctor in 6 weeks. If you had elevated Blood pressure or 4th degree laceration you will need to be seen in 2 weeks. Primary Care Physician: Young Guzman MD [Primary Care Provider] - Test Results: Test results from this visit will be discussed in further detail at your follow- up appointment, if applicable.
--- NOTE | 2018-10-30 12:25 | PCM.DCVAG ---
Discharge Diet: No Restrictions Discharge Activity: Return to Normal Activity, May not drive while taking narcotic pain medications., May Shower May resume sexual activity in: 4-6 weeks Call your doctor if your incision/area has: Continuous Slow Oozing, Sudden Increased Bleeding, Increased Pain/ Swelling, Increased Redness, Foul Smelling Discharge Additional Instructions: If you experience any of the following, contact your healthcare provider. Bleeding that soaks a pad every hour for 2 hours Fever 100.4 or higher Unrelieved incision or abdominal pain Swelling, redness, discharge or bleeding from your incision or episiotomy site Your incision begins to separate Problems urinating (including inability to urinate or burning while urinating). Visual changes Severe headache Flu-like symptoms Pain or redness in one of both of your breasts Pain, warmth, tenderness or swelling in your legs, especially the calf area Frequent nausea and vomiting Symptoms of depression or anxiety If you experience any of the following, call 911 or go to the nearest Emergency Room. Chest pain Problems breathing Seizure activity Partial or complete paralysis of a body part, slurred speech, weakness or drooping of the face, or a sudden inability to walk or hold your balance Allergies/Adverse Reactions: Allergies acetaminophen [From Tylenol] Allergy (Mild, Verified 10/28/18 08:31) scratchy throat amoxicillin Allergy (Mild, Verified 10/28/18 08:31) rash Medications to take at Discharge Pnv No.95/Ferrous Fum/Folic AC [ Vitamin Tablet] 1 tab PO DAILY 10/28/18 Please Follow Up With: Ana Diaz MD - [phone] When: Call to make an appointment with your doctor in 6 weeks. If you had elevated Blood pressure or 4th degree laceration you will need to be seen in 2 weeks. Primary Care Physician: Young Guzman MD [Primary Care Provider] - Test Results: Test results from this visit will be discussed in further detail at your follow-up appointment, if applicable.
[2018-10-30] MEDS: Prenatal Vits Tablet 1 TABLET PO (13:20)
[2018-10-30 14:00] VITALS: BP 110/59; PULSE 75; RESP 16; TEMP 37.4
--- NOTE | 2018-10-30 17:27 | NURSING ---
1640 Pt states she is ready to go home. States she feels comfortable caring for herself and her baby and denied any further questions. Discharged to home via wheelchair to car with infant in car seat in her lap.
== END 2018-10-30 16:40 | disposition home or self-care (01) | DRG 807 ==
LOC: WPOUT 08:24 → WP 08:24
PROVIDERS: Admitting Provider Obstetrics & Gynecology; Family Provider Family Medicine; PCP Family Medicine; Referring Provider Obstetrics & Gynecology; Visit Provider Obstetrics & Gynecology
DX: O99.824 Streptococcus B carrier state complicating childbirth (principal); O70.0 First degree perineal laceration during delivery; Z3A.39 39 weeks gestation of pregnancy; Z37.0 Single live birth
CPT/HCPCS: 59025; 59050; 85027; 86850; 86900; 99218; J7120; G0378

== ENCOUNTER → 2020-04-16 | Outpatient (CLI) | payer SELFPAY ==
[2020-04-16 10:30] VITALS: BMI 23.7
[2020-04-18 09:52] LABS: HPV Reflexed? NOT INDICATED
== END | disposition home or self-care (01) ==
LOC: LABSPEC 11:46
PROVIDERS: PCP Family Medicine; Referring Provider Obstetrics & Gynecology; Visit Provider Obstetrics & Gynecology
DX: Z12.4 Encounter for screening for malignant neoplasm of cervix (principal)
CPT/HCPCS: 88175; G0145

== ENCOUNTER → 2021-06-06 | Outpatient (CLI) | payer SELFPAY | END | disposition home or self-care (01) | PROVIDERS: PCP Family Medicine; Referring Provider Obstetrics & Gynecology; Visit Provider Obstetrics & Gynecology | DX: Z34.90 Encounter for supervision of normal pregnancy, unspecified, unspecified trimester (principal) | CPT/HCPCS: 87086; 87088 ==

== ENCOUNTER → 2021-07-01 11:16 | Outpatient (CLI) | payer SELFPAY ==
[2021-07-01 11:31] LABS: Absolute Lymphocyte Count 1.48 X10^3/uL (0.83-4.51); Absolute Neutrophil Count 4.4 X10^3/uL (2.0-7.7); Basophil# 0.01 X10^3/uL; Basophil% 0.2 % (0-1); Eosinophil# 0.04 X10^3/uL; Eosinophils% 0.6 % (0-5); Hematocrit 36.9 % (37-47); Hemoglobin 12.4 g/dL (12.0-15.0); Lymphocyte # 1.48 X10^3/ul (0.83-4.51); Lymphocyte % 23.5 % (19-41); Mean Corp Hgb Conc 33.6 g/dL (32-36); Mean Corpuscular Hgb 29.3 pg (27.0-32.0); Mean Corpuscular Volume 87.2 fL (81-99); Monocyte# 0.33 X10^3/uL; Monocyte% 5.2 % (0-10); NRBC Flagged by Analyzer 0 % (0-5); Neutrophil # 4.43 X10^3/uL (2.7-7.7); Neutrophil % 70.2 % (47-70); Platelet Count 200 K/mm3 (150-450); RBC Distribution Width CV 12.8 % (11.6-14.6); RBC Distribution Width SD 40.6 fl (35.1-43.9); Red Blood Count 4.23 M/mm3 (4.2-5.4); White Blood Count 6.3 K/mm3 (4.4-11.0)
[2021-07-01 12:29] LABS: Rubella IgG Reactive (Nonreactive)
== END ==
PROVIDERS: PCP Family Medicine; Referring Provider Obstetrics & Gynecology; Visit Provider Obstetrics & Gynecology
DX: Z34.90 Encounter for supervision of normal pregnancy, unspecified, unspecified trimester (principal)
CPT/HCPCS: 36415; 85025; 86762; 86850; 86900; 86901

== ENCOUNTER → 2021-08-20 13:05 | Outpatient (CLI) | payer SELFPAY ==
--- NOTE | 2021-08-20 13:07 | US_ITS ---
STUDY: SECOND AND THIRD TRIMESTER OBSTETRICAL ULTRASOUND REASON FOR EXAM: Female, 26 years old ANATOMY LMP: 04/08/2021. TECHNIQUE: Transabdominal and Transvaginal TECHNICAL QUALITY: Adequate. PRIOR ULTRASOUND: None. FINDINGS: There is a single intrauterine fetus. The fetus is in a cephalic presentation. There is demonstrated cardiac activity with a heart rate of 152 bpm. There is a normal amniotic fluid volume. The largest amniotic fluid pocket measures 3.9 cm. The amniotic fluid index (RHINA) is within normal limits. The placenta is anterior in location and is not low lying. There are Grade 0 placental changes. The cervix measures 4 cm in length. The bilateral adnexal regions are normal. BIOMETRY: BPD: 4.65 cm: 20 weeks, 0 days HC: 17.17 cm: 19 weeks, 5 days AC: 15 cm: 20 weeks, 1 days FL: 2.93 cm: 19 weeks, 8 days CI: 78% FL/BPD: 63% FL/HC: FL/AC: 20% HC/AC: 1.15 age by current US: 19 weeks, 4 days. SANDIP by current US: 01/10/2022. Estimated weight: 310 grams, +/- 47 grams, 78 %. Age by LMP: 19 weeks, 1 days. SANDIP by LMP: 01/13/2022. ANATOMY: Gender: Female Cranium: Normal lateral ventricles. Normal choroid plexus. Normal cerebellum. Normal cisterna magna. Normal face, nose and lips. Chest: Normal 4-chamber heart. Abdomen/Pelvis: Normal diaphragm. Normal stomach. Normal abdominal wall. Normal cord insertion. Normal 3 vessel cord. Normal kidneys. Normal bladder. Spine: Normal cervical spine. Normal thoracic spine. Normal lumbar spine. Normal sacrum. Extremities: Normal bilateral upper extremities. Normal bilateral lower extremities. US/OB Anatomy Scan IMPRESSION: Single live intrauterine gestation with mean gestational age of 19 weeks and 4 days. Electronically Signed: Chace Sorensen MD at 15:03 EST , Service support ,
== END ==
PROVIDERS: PCP Family Medicine; Referring Provider Obstetrics & Gynecology; Visit Provider Obstetrics & Gynecology
DX: Z34.80 Encounter for supervision of other normal pregnancy, unspecified trimester (principal)
CPT/HCPCS: 76805; 76817

== ENCOUNTER 2021-10-21 09:57 | Outpatient (CLI) | payer SELFPAY ==
[2021-10-21 10:20] LABS: Absolute Neutrophil Count 6.7 X10^3/uL (2.0-7.7); Eosinophil# 0.06 X10^3/uL; Eosinophils% 0.7 % (0-5); Hematocrit 32.4 % (37-47); Hemoglobin 11.2 g/dL (12.0-15.0); Lymphocyte % 11.1 % (19-41); Mean Corp Hgb Conc 34.6 g/dL (32-36); Mean Corpuscular Hgb 32.3 pg (27.0-32.0); Mean Corpuscular Volume 93.4 fL (81-99); Mean Platelet Vol. 9.9 fl (6.2-12.0); Monocyte# 0.48 X10^3/uL; Monocyte% 5.9 % (0-10); NRBC Flagged by Analyzer 0 % (0-5); Neutrophil # 6.66 X10^3/uL (2.7-7.7); Neutrophil % 81.8 % (47-70); Platelet Count 192 K/mm3 (150-450); RBC Distribution Width CV 13.2 % (11.6-14.6); RBC Distribution Width SD 44.9 fl (35.1-43.9); Red Blood Count 3.47 M/mm3 (4.2-5.4); White Blood Count 8.1 K/mm3 (4.4-11.0)
[2021-10-21 10:57] LABS: Glucose Challenge Gest 1H 50g 148 mg/dL (70-140)
== END 2021-10-21 23:59 | disposition home or self-care (01) ==
LOC: PAVLAB 09:57
PROVIDERS: PCP Family Medicine; Referring Provider Obstetrics & Gynecology; Visit Provider Obstetrics & Gynecology
DX: Z34.80 Encounter for supervision of other normal pregnancy, unspecified trimester (principal)
CPT/HCPCS: 36415; 82950; 85025

== ENCOUNTER 2021-10-29 09:58 | Outpatient (CLI) | payer SELFPAY ==
[2021-10-29 11:20] LABS: Absolute Lymphocyte Count 1.28 X10^3/uL (0.83-4.51); Absolute Neutrophil Count 6.4 X10^3/uL (2.0-7.7); Basophil# 0.01 X10^3/uL; Basophil% 0.1 % (0-1); Eosinophil# 0.04 X10^3/uL; Eosinophils% 0.5 % (0-5); Hematocrit 32.5 % (37-47); Hemoglobin 11.1 g/dL (12.0-15.0); Lymphocyte # 1.28 X10^3/ul (0.83-4.51); Lymphocyte % 15.5 % (19-41); Mean Corp Hgb Conc 34.2 g/dL (32-36); Mean Corpuscular Hgb 31.3 pg (27.0-32.0); Mean Corpuscular Volume 91.5 fL (81-99); Mean Platelet Vol. 10.2 fl (6.2-12.0); Monocyte# 0.44 X10^3/uL; Monocyte% 5.3 % (0-10); NRBC Flagged by Analyzer 0 % (0-5); Neutrophil # 6.39 X10^3/uL (2.7-7.7); Neutrophil % 77.5 % (47-70); Platelet Count 223 K/mm3 (150-450); RBC Distribution Width CV 12.7 % (11.6-14.6); RBC Distribution Width SD 42.4 fl (35.1-43.9); Red Blood Count 3.55 M/mm3 (4.2-5.4); White Blood Count 8.3 K/mm3 (4.4-11.0)
[2021-10-29 11:42] LABS: Glucose GTT-Gestational 1 Hr 163 mg/dL (<190)
[2021-10-29 11:42] LABS: Glucose GTT-Gestation. Fasting 83 mg/dL (<105)
[2021-10-29 13:51] LABS: Glucose GTT-Gestational 3 Hr 97 L (<145)
[2021-10-29 13:53] LABS: Glucose GTT-Gestational 2 Hr 168 mg/dL (<165)
== END 2021-10-29 23:59 | disposition home or self-care (01) ==
LOC: LAB 09:59
PROVIDERS: PCP Family Medicine; Referring Provider Obstetrics & Gynecology; Visit Provider Obstetrics & Gynecology
DX: Z34.80 Encounter for supervision of other normal pregnancy, unspecified trimester (principal)
CPT/HCPCS: 36415; 82951; 82952; 85025

== ENCOUNTER 2021-12-19 15:52 | Outpatient (CLI) | payer SELFPAY | END 2021-12-19 23:59 | disposition home or self-care (01) | LOC: LABSPEC 15:53 | PROVIDERS: PCP Family Medicine; Visit Provider Obstetrics & Gynecology | DX: Z34.80 Encounter for supervision of other normal pregnancy, unspecified trimester (principal) | CPT/HCPCS: 87081 ==

== ENCOUNTER 2021-12-25 15:30 | Outpatient (CLI) | payer SELFPAY ==
[2021-12-25 15:38] VITALS: BMI 27.1
[2021-12-25 15:51] VITALS: BP 111/64; BP 111/67; PULSE 87; TEMP 36.6; O2SAT 98
[2021-12-25 16:06] VITALS: BP 116/64; PULSE 82
[2021-12-25 16:20] LABS: Hematocrit 34.4 % (37-47); Hemoglobin 11.5 g/dL (12.0-15.0); Mean Corp Hgb Conc 33.4 g/dL (32-36); Mean Corpuscular Hgb 30.7 pg (27.0-32.0); Mean Corpuscular Volume 91.7 fL (81-99); Platelet Count 182 K/mm3 (150-450); Red Blood Count 3.75 M/mm3 (4.2-5.4); White Blood Count 8.5 K/mm3 (4.4-11.0)
[2021-12-25 16:22] VITALS: BP 109/63; PULSE 76
[2021-12-25 16:25] LABS: Protein, Urine (Random) 14.3 mg/dL (<11.9); Protein:Creat Ratio 247 mg/g CRE (0-200)
--- NOTE | 2021-12-25 16:25 | OB.TRI.HP_ITS ---
HPI - General HPI Narrative NAYANA CHRISTINE, is a 26 y/o who presents with symptoms of visual changes. On arrival her bp was 110/63. The nurses were given orders to perform PIH labs including NST and urine protein:cr level Maternal Data Information SANDIP Calculator Estimated Delivery Date Method Current WG Current Estimate 01/14/22 Ultrasound #1 37w 2d Other Estimates 01/06/22 LMP (Certain) 38w 3d PFSH PFSH Home Medications docosahexaenoic acid 200 mg capsule mg PO 11/27/20 [History Last Taken Unknown] Allergy/AdvReac Type Severity Reaction Status Date / Time acetaminophen [From Tylenol] Allergy Mild scratchy Verified 12/19/21 11:01 throat amoxicillin Allergy Mild rash Verified 12/19/21 11:01 Family History Mother Hypotension Surgical History S/P nasal surgery Social History Smoking Status: Never smoker alcohol intake: never substance use type: does not use caffeine: Yes what type of physical activity do you participate in: none seatbelt use: always do you feel safe at home: Yes additional social history: - 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 Date Name GA/Weeks Outcome Route Bth Weight Infant Gen Labor Lgth Anesthesia Del [facility] Provider FOB 10/27/18 Brock 39 live - full term 7lbs 2oz Male 12 h ours epidural [facility] Ana Casas Visit Details Expected Delivery Route/Plan Labor Preferences- labor support person: augusto labor intervention preferences: none pain management options preferred:epidural cut cord/dad catch:yes : yes PP control planned:none discussed possible routes of delivery and associated risks: [] special requests: [] Plans Covid status: non immune, counseled regarding risk of covid in vs vaccination and considering vaccination Flu vaccine: declined Tdap vaccine: declined Rhogam: na LARC form signed: declined movement and labor precautions reviewed. Problem list reviewed and updated with the most current plan of care details and appropriate orders placed. Relevant counseling for the gestational age provided. Continue routine care and follow up unless otherwise noted in visit notes/problem list details OB Flowsheet Initial Weight: 158 lb Date -?-?-?-?-?-?-?-?-?-?-?-?- EGA Weight BP Urine Prot -?-?-?-?-?-?-?-?-?-?-?-?- Glucose FHR FuHt Pres Dilation -?-?-?-?-?-?-?-?-?-?-?-?- Effaced St Visit Note 06/06/21 -?-?-?-?-?-?-?-?-?-?-?-?- 8w 2d 158 lb (+0 oz) 118/62 -?-?-?-?-?-?-?-?-?-?-?-?- 170 -?-?-?-?-?-?-?-?-?-?-?-?- SM- CRL 1.7cm NO T cons with LMP 07/01/21 -?-?-?-?-?-?-?-?-?-?-?-?- 11w 6d 158 lb (+0 oz) 200 lb (+42 lb) 158 lb (+0 oz) 102/56 Negative -?-?-?-?-?-?-?-?-?-?-?-?- Negative 155 -?-?-?-?-?-?-?-?-?-?-?-?- SM- SM- no vb cramping labs draw n 07/31/21 -?-?-?-?-?-?-?-?-?-?-?-?- 16w 1d 159 lb 6 oz (+1 lb 6 oz) 132/80 Negative -?-?-?-?-?-?-?-?-?-?-?-?- Negative 147 -?-?-?-?-?-?-?-?-?-?-?-?- JV- no complaint s today. plans on anatomy scan next month. 08/26/21 -?-?-?-?-?-?-?-?-?-?-?-?- 19w 6d 160 lb 4 oz (+2 lb 4 oz) 130/72 Negative -?-?-?-?-?-?-?-?-?-?-?-?- Negative 145 -?-?-?-?-?-?-?-?-?-?-?-?- Sm- no vb lof re viewed anatomy results 09/23/21 -?-?-?-?-?-?-?-?-?-?-?-?- 23w 6d 170 lb (+12 lb) 130/68 Negative -?-?-?-?-?-?-?-?-?-?-?-?- Negative 145 -?-?-?-?-?-?-?-?-?-?-?-?- SM- no vb lof go od fm no rgular ctx 10/21/21 -?-?-?-?-?-?-?-?-?-?-?-?- 27w 6d 173 lb (+15 lb) 112/64 Negative -?-?-?-?-?-?-?-?-?-?-?-?- Negative 140 28 -?-?-?-?-?-?-?-?-?-?-?-?- Sm- no vb lof go od fm nor egular ctx discussed gct ordered 3 hr 11/07/21 -?-?-?-?-?-?-?-?-?-?-?-?- 30w 2d 180 lb (+22 lb) 120/70 Negative -?-?-?-?-?-?-?-?-?-?-?-?- Negative 145 30 Cephalic -?-?-?-?-?-?-?-?-?-?-?-?- SM- no vb lof go od fm no regular ctx doing well 11/21/21 -?-?-?-?-?-?-?-?-?-?-?-?- 32w 2d 181 lb 2 oz (+23 lb 2 oz) 110/62 Negative -?-?-?-?-?-?-?-?-?-?-?-?- Negative 143 32 Cephalic -?-?-?-?-?-?-?-?-?-?-?-?- JV- no lof, vagi nal bleeding, or dec fm. Larc signed. 12/05/21 -?-?-?-?-?-?-?-?-?-?-?-?- 34w 2d 183 lb (+25 lb) 94/60 Negative -?-?-?-?-?-?-?-?-?-?-?-?- Negative 140 34 Cephalic -?-?-?-?-?-?-?-?-?-?-?-?- SM- no vb lof go od fm no regular ctx 12/19/21 -?-?-?-?-?-?-?-?-?-?-?-?- 36w 2d 94/70 Negative -?-?-?-?-?-?-?-?-?-?-?-?- Negative 140 36 Cephalic 1 -?-?-?-?-?-?-?-?-?-?-?-?- 20 -1 SM- no vb lof good fm no regular ctx 12/25/21 -?-?-?-?-?-?-?-?-?-?-?-?- 37w 1d 189 lb (+31 lb) 111/64 111/67 116/64 109/63 110/63 -?-?-?-?-?-?-?-?-?-?-?-?- -?-?-?-?-?-?-?-?-?-?-?-?- ROS Constitutional Constitutional: Reports systems reviewed and no addt'l complaints, except as documented Gastrointestinal Gastrointestinal: Denies bloating, constipation, cramping, diarrhea, nausea or vomiting Genitourinary Genitourinary: Reports other Details: Denies vaginal odor, vaginal bleeding, or vaginal discharge ; Denies difficulty urinating or flank pain Physical Exam HEENT normocephalic Resp normal respiratory effort and normal air movement no CVA tenderness Extremity normal to inspection General Extremity: edema bilateral (trace ) NST FHR Rate Baby A Baseline: 140 Variability:: Moderate Accelerations:: 15 x 15 Decelerations:: None NST Reactive:: Yes FHR Category:: Category I Assessment & Plan (1) Abnormal glucose affecting : COMMENT: nl 3 hr gtt (2) Supervision of other normal : COMMENT: PRR (SP labs) SANDIP: 01/14/22 surprise PC: Brock Spouse: Augusto (3) : QUALIFIERS: Weeks of gestation: 36 weeks Qualified Code(s): Z3A.36 - 36 weeks gestation of COMMENT: declines carrier, genetic and NTD. dec std screening, agrees to have drawn at delivery. NL anatomy, GBS negative (4) Visual changes: COMMENT: seen in triage 12/26/21- PIH labs were normal, reactive nst. close follow up recommended Charges/Coding Multi Select Codes Visit Charges Office Visit/Consults: 61321 OV L3 Est Urinary/Genital Urinary/Genital CPT Codes: 09005-10 non-stress test Interp
--- NOTE | 2021-12-25 16:25 | OB.TRI.NOTE ---
HPI - General HPI Narrative NAYANA CHRISTINE, is a 26 y/o who presents with symptoms of visual changes. On arrival her bp was 110/63. The nurses were given orders to perform PIH labs including NST and urine protein:cr level Maternal Data Information SANDIP Calculator Estimated Delivery Date Method Current WG Current Estimate 01/14/22 Ultrasound #1 37w 2d Other Estimates 01/06/22 LMP (Certain) 38w 3d PFSH PFSH Home Medications docosahexaenoic acid 200 mg capsule mg PO 11/27/20 [History Last Taken Unknown] Allergy/AdvReac Type Severity Reaction Status Date / Time acetaminophen [From Tylenol] Allergy Mild scratchy Verified 12/19/21 11:01 throat amoxicillin Allergy Mild rash Verified 12/19/21 11:01 Family History Mother Hypotension Surgical History S/P nasal surgery Social History Smoking Status: Never smoker alcohol intake: never substance use type: does not use caffeine: Yes what type of physical activity do you participate in: none seatbelt use: always do you feel safe at home: Yes 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 Date Name GA/Weeks Outcome Route Bth Weight Infant Gen Labor Lgth Anesthesia Del [facility] Provider FOB 10/27/18 Brock 39 live - full term 7lbs 2oz Male 12 hours epidural [facility] Ana Casas Visit Details Expected Delivery Route/Plan Labor Preferences- labor support person: augusto labor intervention preferences: none pain management options preferred:epidural cut cord/dad catch:yes : yes PP control planned:none discussed possible routes of delivery and associated risks: [] special requests: [] Plans Covid status: non immune, counseled regarding risk of covid in vs vaccination and considering vaccination Flu vaccine: declined Tdap vaccine: declined Rhogam: na LARC form signed: declined movement and labor precautions reviewed. Problem list reviewed and updated with the most current plan of care details and appropriate orders placed. Relevant counseling for the gestational age provided. Continue routine care and follow up unless otherwise noted in visit notes/problem list details OB Flowsheet Initial Weight: 158 lb Date <del>?</del> EGA Weight BP Urine Prot <del>?</del> Glucose FHR FuHt Pres Dilation <del>?</del> Effaced St Visit Note 06/06/21 <del>?</del> 8w 2d 158 lb (+0 oz) 118/62 <del>?</del> 170 <del>?</del> SM- CRL 1.7cm NOT cons with LMP 07/01/21 <del>?</del> 11w 6d 158 lb (+0 oz) 200 lb (+42 lb) 158 lb (+0 oz) 102/56 Negative <del>?</del> Negative 155 <del>?</del> SM- SM- no vb cramping labs drawn 07/31/21 <del>?</del> 16w 1d 159 lb 6 oz (+1 lb 6 oz) 132/80 Negative <del>?</del> Negative 147 <del>?</del> JV- no complaints today. plans on anatomy scan next month. 08/26/21 <del>?</del> 19w 6d 160 lb 4 oz (+2 lb 4 oz) 130/72 Negative <del>?</del> Negative 145 <del>?</del> Sm- no vb lof reviewed anatomy results 09/23/21 <del>?</del> 23w 6d 170 lb (+12 lb) 130/68 Negative <del>?</del> Negative 145 <del>?</del> SM- no vb lof good fm no rgular ctx 10/21/21 <del>?</del> 27w 6d 173 lb (+15 lb) 112/64 Negative <del>?</del> Negative 140 28 <del>?</del> Sm- no vb lof good fm nor egular ctx discussed gct ordered 3 hr 11/07/21 <del>?</del> 30w 2d 180 lb (+22 lb) 120/70 Negative <del>?</del> Negative 145 30 Cephalic <del>?</del> SM- no vb lof good fm no regular ctx doing well 11/21/21 <del>?</del> 32w 2d 181 lb 2 oz (+23 lb 2 oz) 110/62 Negative <del>?</del> Negative 143 32 Cephalic <del>?</del> JV- no lof, vaginal bleeding, or dec fm. Larc signed. 12/05/21 <del>?</del> 34w 2d 183 lb (+25 lb) 94/60 Negative <del>?</del> Negative 140 34 Cephalic <del>?</del> SM- no vb lof good fm no regular ctx 12/19/21 <del>?</del> 36w 2d 94/70 Negative <del>?</del> Negative 140 36 Cephalic 1 <del>?</del> 20 -1 SM- no vb lof good fm no regular ctx 12/25/21 <del>?</del> 37w 1d 189 lb (+31 lb) 111/64 111/67 116/64 109/63 110/63 <del>?</del> <del>?</del> ROS Constitutional Constitutional: Reports systems reviewed and no addt'l complaints, except as documented Gastrointestinal Gastrointestinal: Denies bloating, constipation, cramping, diarrhea, nausea or vomiting Genitourinary Genitourinary: Reports other Details: Denies vaginal odor, vaginal bleeding, or vaginal discharge ; Denies difficulty urinating or flank pain Physical Exam HEENT normocephalic Resp normal respiratory effort and normal air movement no CVA tenderness Extremity normal to inspection General Extremity: edema bilateral (trace ) NST FHR Rate Baby A Baseline: 140 Variability:: Moderate Accelerations:: 15 x 15 Decelerations:: None NST Reactive:: Yes FHR Category:: Category I Assessment & Plan (1) Abnormal glucose affecting : COMMENT: nl 3 hr gtt (2) Supervision of other normal : COMMENT: PRR (SP labs) SANDIP: 01/14/22 surprise PC: Brock Spouse: Augusto (3) : QUALIFIERS: Weeks of gestation: 36 weeks Qualified Code(s): Z3A.36 - 36 weeks gestation of COMMENT: declines carrier, genetic and NTD. dec std screening, agrees to have drawn at delivery. NL anatomy, GBS negative (4) Visual changes: COMMENT: seen in triage 12/26/21- PI labs were normal, reactive nst. close follow up recommended Charges/Coding Multi Select Codes Visit Charges Office Visit/Consults: 83227 OV L3 Est Urinary/Genital Urinary/Genital CPT Codes: 82035-76 non-stress test Interp
[2021-12-25 16:28] LABS: AST(SGOT) 15 U/L (15-37); Alanine Aminotransfer ALT/SGPT 14 U/L (13-56); Creatinine, Serum 0.58 mg/dL (0.55-1.02); EST Glomerular Filtration Rate 135 mL/min (>60); Est Glom Filt Rate - Afr Amer 163 mL/min (>60); Estimated Creatinine Clearance 160.34 ml/min; Uric Acid 3.2 mg/dL (2.6-6.0)
[2021-12-25 16:37] VITALS: BP 110/63; PULSE 68
== END 2021-12-25 16:52 | disposition home or self-care (01) ==
LOC: WPOUT 15:36 → WP 15:37
PROVIDERS: PCP Family Medicine; Referring Provider Obstetrics & Gynecology; Visit Provider Obstetrics & Gynecology
DX: O26.893 Other specified pregnancy related conditions, third trimester (principal); H53.9 Unspecified visual disturbance; Z3A.36 36 weeks gestation of pregnancy
CPT/HCPCS: 36415; 59025; 59050; 82565; 82570; 84156; 84450; 84460; 84550; 85027; 99218; G0378

== ENCOUNTER 2022-01-02 18:55 | Inpatient (IN) | payer SELFPAY ==
[2022-01-02] VITALS (21 sets, daily range): BP systolic 96–138; BP diastolic 50–74; PULSE 75–93; TEMP 36.1–36.8; O2SAT 98–100; BMI 26.6
[2022-01-02] MEDS: Lactated Ringers 1,000 ML 200 ML IV (19:15)
[2022-01-02] MEDS: Lactated Ringers 500 ML 999 ML IV ×2 (19:25→21:16)
[2022-01-02 19:50] LABS: Absolute Lymphocyte Count 1.22 X10^3/uL (0.83-4.51); Absolute Neutrophil Count 12.9 X10^3/uL (2.0-7.7); Basophil# 0.02 X10^3/uL; Basophil% 0.1 % (0-1); Eosinophil# 0.02 X10^3/uL; Eosinophils% 0.1 % (0-5); Hematocrit 35.3 % (37-47); Hemoglobin 11.9 g/dL (12.0-15.0); Lymphocyte # 1.22 X10^3/ul (0.83-4.51); Lymphocyte % 8.1 % (19-41); Mean Corp Hgb Conc 33.7 g/dL (32-36); Mean Corpuscular Hgb 31.1 pg (27.0-32.0); Mean Corpuscular Volume 92.2 fL (81-99); Mean Platelet Vol. 10.7 fl (6.2-12.0); Monocyte# 0.83 X10^3/uL; Monocyte% 5.5 % (0-10); NRBC Flagged by Analyzer 0 % (0-5); Neutrophil # 12.92 X10^3/uL (2.7-7.7); Neutrophil % 85.5 % (47-70); Platelet Count 172 K/mm3 (150-450); RBC Distribution Width CV 13.2 % (11.6-14.6); RBC Distribution Width SD 43.8 fl (35.1-43.9); Red Blood Count 3.83 M/mm3 (4.2-5.4); White Blood Count 15.1 K/mm3 (4.4-11.0)
[2022-01-02] MEDS: fentaNYL-bupivacaine (epidural) 100 ML BAG EPIDURAL (21:10)
[2022-01-02] MEDS: Oxytocin 30 units/NS 500 ml 30 UNITS/500 ML IV.SOLN 334 UNITS IV (23:27)
--- NOTE | 2022-01-02 23:41 | HP.PCM.OB_ITS ---
HPI - General General Date of Admission: 01/02/22 HPI Narrative NAYANA CHRISTINE, is a 26 F who presents IAL with regualr ctx no vb lof admits good fm Maternal Data Information SANDIP Calculator Estimated Delivery Date Method Current WG Current Estimate 01/14/22 Ultrasound #1 38w 2d Other Estimates 01/06/22 LMP (Certain) 39w 3d PFSH PFSH Medical History (Updated 01/02/22 @ 23:[address] Ana Diaz MD) depression Home Medications docosahexaenoic acid 200 mg capsule 1 mg PO DAILY 11/27/20 [History Last Taken 01/01/22 17:00] Allergy/AdvReac Type Severity Reaction Status Date / Time acetaminophen [From Tylenol] Allergy Mild scratchy Verified 01/02/22 19:44 throat amoxicillin Allergy Mild rash Verified 01/02/22 19:44 Family History Mother Hypotension Surgical History S/P nasal surgery Social History Smoking Status: Never smoker alcohol intake: never substance use type: does not use caffeine: Yes what type of physical activity do you participate in: none seatbelt use: always do you feel safe at home: Yes 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 Date Name GA/Weeks Outcome Route Bth Weight Infant Gen Labor Lgth Anesthesia Del Locatn Provider FOB 10/27/18 Brock 39 live - full term 7lbs 2oz Male 12 h ours epidural [facility] Ana Casas Visit Details Expected Delivery Route/Plan Labor Preferences- labor support person: augusto labor intervention preferences: none pain management options preferred:epidural cut cord/dad catch:yes : yes PP control planned:none discussed possible routes of delivery and associated risks: [] special requests: [] Plans Covid status: non immune, counseled regarding risk of covid in vs vaccination and considering vaccination Flu vaccine: declined Tdap vaccine: declined Rhogam: na LARC form signed: declined movement and labor precautions reviewed. Problem list reviewed and updated with the most current plan of care details and appropriate orders placed. Relevant counseling for the gestational age provided. Continue routine care and follow up unless otherwise noted in visit notes/problem list details OB Flowsheet Initial Weight: 158 lb Date -?-?-?-?-?-?-?-?-?-?-?-?- EGA Weight BP Urine Prot -?-?-?-?-?-?-?-?--?-?-?-?- Glucose FHR FuHt Pres Dilation -?-?-?-?-?-?-?-?-?-?-?-?- Effaced St Visit Note 06/06/21 -?-?-?-?-?-?-?-?-?-?-?-?- 8w 2d 158 lb (+0 oz) 118/62 -?-?-?-?-?-?-?-?-?-?-?-?- 170 -?-?-?-?-?-?-?-?-?-?-?-?- SM- CRL 1.7cm NO T cons with LMP 07/01/21 -?-?-?-?-?-?-?-?-?--?-?-?- 11w 6d 158 lb (+0 oz) 200 lb (+42 lb) 158 lb (+0 oz) 102/56 Negative -?-?-?-?-?-?-?-?-?-?-?-?- Negative 155 -?-?-?-?-?-?-?-?-?-?-?-?- SM- SM- no vb cramping labs draw n 07/31/21 -?-?-?-?-?-?-?-?-?-?-?-?- 16w 1d 159 lb 6 oz (+1 lb 6 oz) 132/80 Negative -?-?-?-?-?-?-?-?-?-?-?-?- Negative 147 -?-?-?-?-?-?-?-?-?-?-?-?- JV- no complaint s today. plans on anatomy scan next month. 08/26/21 -?-?-?-?-?-?-?-?-?-?-?-?- 19w 6d 160 lb 4 oz (+2 lb 4 oz) 130/72 Negative -?-?-?-?-?-?-?-?-?-?-?-?- Negative 145 -?-?-?-?-?-?-?-?-?-?-?-?- Sm- no vb lof re viewed anatomy results 09/23/21 -?-?-?-?-?-?-?-?-?-?-?-?- 23w 6d 170 lb (+12 lb) 130/68 Negative -?-?-?-?-?-?-?-?-?-?-?-?- Negative 145 -?-?-?-?-?-?-?-?-?-?-?-?- SM- no vb lof go od fm no rgular ctx 10/21/21 -?-?-?-?-?-?-?-?-?-?-?-?- 27w 6d 173 lb (+15 lb) 112/64 Negative -?-?-?-?-?-?-?-?-?-?-?-?- Negative 140 28 -?-?-?-?-?-?-?-?-?-?-?-?- Sm- no vb lof go od fm nor egular ctx discussed gct ordered 3 hr 11/07/21 -?-?-?-?-?-?-?-?-?-?-?-?- 30w 2d 180 lb (+22 lb) 120/70 Negative -?-?-?-?-?-?-?-?-?-?-?-?- Negative 145 30 Cephalic -?-?-?-?-?-?-?-?-?-?-?-?- SM- no vb lof go od fm no regular ctx doing well 11/21/21 -?-?-?-?-?-?-?-?-?-?-?-?- 32w 2d 181 lb 2 oz (+23 lb 2 oz) 110/62 Negative -?-?-?-?-?-?-?-?-?-?-?-?- Negative 143 32 Cephalic -?-?-?-?-?-?-?-?-?-?-?-?- JV- no lof, vagi nal bleeding, or dec fm. Larc signed. 12/05/21 -?-?-?-?-?-?-?-?-?-?-?-?- 34w 2d 183 lb (+25 lb) 94/60 Negative -?-?-?-?-?-?-?-?-?-?-?-?- Negative 140 34 Cephalic -?-?-?-?-?-?-?-?-?-?-?-?- SM- no vb lof go od fm no regular ctx 12/19/21 -?-?-?-?-?-?-?-?-?-?-?-?- 36w 2d 94/70 Negative -?-?-?-?-?-?-?-?-?-?-?-?- Negative 140 36 Cephalic 1 -?-?-?-?-?-?-?-?-?-?-?-?- 20 -1 SM- no vb lof good fm no regular ctx 12/25/21 -?-?-?-?-?-?-?-?-?-?-?-?- 37w 1d 189 lb (+31 lb) 111/64 111/67 116/64 109/63 110/63 -?-?-?-?-?-?-?-?-?-?-?-?- -?-?-?-?-?-?-?-?-?-?-?-?- 12/26/21 -?-?-?-?-?-?-?-?-?-?-?-?- 37w 2d 187 lb (+29 lb) 116/66 Negative -?-?-?-?-?-?-?-?-?-?-?-?- Negative 140 37 Cephalic 3 -?-?-?-?-?-?-?-?-?-?-?-?- 20 -1 SM- no vb lof good fm no reuglar ctx 01/02/22 -?-?-?-?-?-?-?-?-?-?-?-?- 38w 2d 190 lb (+32 lb) 112/62 Trace -?-?-?-?-?-?-?-?-?-?-?-?- Negative 140 38 Cephalic 4 -?-?-?-?-?-?-?-?-?-?-?-?- 70 -1 SM- no vb lof good fm no regular ctx 01/02/22 -?-?-?-?-?-?-?-?-?-?-?-?- 38w 2d 191 lb 2.252 oz (+33 lb 2.252 oz) 128/74 125/67 138/73 136/72 127/68 103/53 102/51 96/50 105/54 106/57 108/57 99/54 130/57 -?-?-?-?-?-?-?-?-?-?-?-?- -?-?-?-?-?-?-?-?-?-?-?-?- NST FHR Rate Baby A Baseline: 140 Variability:: Moderate Accelerations:: 15 x 15 Decelerations:: None NST Reactive:: Yes FHR Category:: Category I Uterine Activity:: q3-5 ROS Constitutional Constitutional: Reports systems reviewed and no addt'l complaints, except as documented ENT HEENT: Reports systems reviewed and no addt'l complaints, except as documented Cardiovascular Cardiovascular: Reports systems reviewed and no addt'l complaints, except as documented Respiratory/Chest Respiratory/Chest: Reports systems reviewed and no addt'l complaints, except as documented Gastrointestinal Gastrointestinal: Reports systems reviewed and no addt'l complaints, except as documented and nausea; Denies abdominal pain Genitourinary Genitourinary: Reports systems reviewed and no addt'l complaints, except as documented, contractions Details: present and frequency (regular ) and movement Details: present Musculoskeletal Musculoskeletal: Reports systems reviewed and no addt'l complaints, except as documented Integumentary Integumentary: Reports as per HPI Neurologic Neurologic: Reports systems reviewed and no addt'l complaints, except as documented Endocrine Endocrinology: Reports systems reviewed and no addt'l complaints, except as documented Vital Signs Vital Signs Vital Signs: 01/02/22 18:57 01/02/22 20:08 01/02/22 20:52 Temperature 98.3 F 98.2 F Temperature Source Temporal Temporal Pulse Rate 89 85 88 Blood Pressure 128/74 H 125/67 H 138/73 H BP Systolic 128 125 138 BP Diastolic 74 67 73 Pulse Ox 98 100 100 01/02/22 20:55 01/02/22 20:57 01/02/22 21:00 Temperature Temperature Source Pulse Rate 87 75 77 Blood Pressure 136/72 H 127/68 H BP Systolic 136 127 BP Diastolic 72 68 Pulse Ox 99 01/02/22 21:02 01/02/22 21:07 01/02/22 21:10 Temperature Temperature Source Pulse Rate 93 87 88 Blood Pressure 103/53 L 102/51 L BP Systolic 103 102 BP Diastolic 53 51 Pulse Ox 100 100 01/02/22 21:11 01/02/22 21:12 01/02/22 21:16 Temperature Temperature Source Pulse Rate 83 84 83 Blood Pressure 96/50 L 105/54 L BP Systolic 96 105 BP Diastolic 50 54 Pulse Ox 100 01/02/22 21:17 01/02/22 21:20 01/02/22 21:22 Temperature Temperature Source Pulse Rate 87 85 87 Blood Pressure 106/57 L BP Systolic 106 BP Diastolic 57 Pulse Ox 99 99 01/02/22 21:25 01/02/22 21:58 01/02/22 22:10 Temperature 97.0 F L Temperature Source Temporal Pulse Rate 85 81 80 Blood Pressure 108/57 L 99/54 L BP Systolic 108 99 BP Diastolic 57 54 Pulse Ox 98 01/02/22 23:09 01/02/22 23:34 Temperature 97.3 F L Temperature Source Temporal Pulse Rate 92 Blood Pressure 130/57 H BP Systolic 130 BP Diastolic 57 Pulse Ox Weight Weight: 191 lb 2.252 oz Body Mass Index (BMI) 26.6 Physical Exam Const alert, oriented x3 and healthy appearing Constitutional Narrative: uncomfortable with contractions HEENT normocephalic and moist oral mucous membranes Head and Scalp: atraumatic Neck full ROM, no lymphadenopathy, supple and thyroid normal General: trachea midline Thyroid: thyroid normal Lymph Lymphatic: no lymphadenopathy noted Chest inspection of chest normal Resp normal respiratory effort Cardio regular rate GI normal to inspection, nondistended, normoactive bowel sounds, soft to palpation and non-tender Inspection: gravid external exam normal Bimanual Exam - Vag & Uterus: uterus non-tender Manual OB Exam: estimated gestational size appropriate, presentation cephalic, dilated, effaced and station Extremity normal to inspection General Extremity: Negative for edema Skin no rashes or lesions noted Neuro deep tendon reflexes 2+ bilaterally Motor Exam: strength 5/5 throughout and clonus absent Psych mental status grossly normal Labs Labs Labs: Blood Type A POSITIVE Antibody Screen NEGATIVE Hct 35.3 % (37-47) L Hgb 11.9 g/dL (12.0-15.0) L Obstetrics US Rubella IgG Antibody Reactive (Nonreactive) Hep Bs Antigen Negative (Negative) HIV 1&2 Antibody Non-Reactive (Nonreactive) Glucose 1 Hr 50 gm 148 mg/dL (70-140) H Rhogam given: No Assessment & Plan (1) Abnormal glucose affecting : COMMENT: nl 3 hr gtt (2) Supervision of other normal : COMMENT: PRR (SP labs) SANDIP: 01/14/22 surprise PC: Brock Spouse: Aguusto (3) : QUALIFIERS: Weeks of gestation: 37 weeks Qualified Code(s): Z3A.37 - 37 weeks gestation of COMMENT: declines carrier, genetic and NTD. dec std screening, agrees to have drawn at delivery. NL anatomy, GBS negative (4) Active labor at term: COMMENT: admits IAL epidural, arom clearfluid
--- NOTE | 2022-01-02 23:44 | EX.PCM.OBRPT ---
Assessment & Plan (1) Vaginal delivery: COMMENT: SM IAL girl Manju (2) Abnormal glucose affecting : COMMENT: nl 3 hr gtt (3) : COMMENT: Declines genetic, carrier, and NTD screens. normal anatomy scan. (4) Supervision of other normal : COMMENT: PRR (SP labs) SANDIP: 01/14/22 surprise PC: Brock Spouse: Augusto Maternal Data Information SANDIP Calculator Estimated Delivery Date Method Current WG Current Estimate 01/14/22 Ultrasound #1 38w 2d Other Estimates 01/06/22 LMP (Certain) 39w 3d Vaginal Delivery Operative Information Date of Procedure: 01/02/22 Pre-Operative Diagnosis: IAL Post-Operative Diagnosis: same Surgery / Procedure Performed: Spontaneous Vaginal Delivery Type of Anesthesia: Epidural Special Medications: none Estimated Blood Loss: 100 Fluids Replaced: crystalloid Findings Description of Procedure: Patient began pushing and delivered the head in the CARLOS presentation. The head was delivered atraumatically . The anterior and posterior shoulders delivered without complication followed by the rest of the infant and the infant was placed on the maternal abdomen. Delayed cord clamping was employed for approximately 60 seconds. Cord was clamped and cut and gentle traction was applied to the cord and the placenta delivered spontaneously immediately following it was noted to be intact with three-vessel cord. The perineum and vagina were inspected and noted to have a first degree perinel laceration repaired in the usual fashion with 3-0 vicryl rapide. EBL was 100 cc. Patient and infant tolerated delivery well. Presentation: CARLOS Amniotic Membrane Rupture Type: Artificial Amniotic Fluid Description: Clear Placental Delivery Description: Spontaneous Placenta Disposition: [facility] Cord Vessel Description: 3 Vessels Cord Entanglement: None Delayed Cord Clamping: Yes Post Vaginal Delivery Medications Given After Delivery: IV Pitocin Episiotomy Description: None Laceration: Perineal Extension/lac and 1st degree Complication Complications: None Procedures Urinary/Genital [id number]: [id number] Vaginal Delivery [facility]
--- NOTE | 2022-01-02 23:45 | PCM.DC ---
Discharge Instructions Diet Discharge Diet: No restrictions Activity Discharge Activity: Return to Normal Activity, May Not Drive (while taking narcotic pain medications.) and May Shower May resume sexual activity in: 4-6 weeks Dressing / Incision Call your doctor if your incision/area has: Continuous Slow Oozing, Sudden Increased Bleeding, Increased Pain/ Swelling, Increased Redness and Foul Smelling Discharge Follow Up Care Please Follow Up With: Ana Diaz MD When: Call [phone] to make an appointment with your doctor in 6 weeks. If you had elevated blood pressure or 4th degree laceration, you will need to be seen in 2 weeks. Test Results: Test results from this visit will be discussed in further detail at your follow-up appointment, if applicable. Discharge Plan Admission Admit Date/Time: 01/02/22 18:55 Attending Provider: Ana Diaz Primary Care Provider: Ruth Salcido Discharge Orders/Prescriptions Prescriptions: No Action DHA 200 mg capsule 1 mg PO DAILY RF: 0 Referrals / Follow Up: Ruth Salcido DO [Primary Care Provider] - Disposition Disposition (needs filled in before D/C Order can be placed): Home, Self Care
[2022-01-03] VITALS (13 sets, daily range): BP systolic 101–124; BP diastolic 55–74; PULSE 63–85; RESP 16; TEMP 36.1–36.9; O2SAT 97–98
[2022-01-03] MEDS: Ketorolac 10 MG Tablet PO ×3 (06:03→18:17)
[2022-01-03] MEDS: Prenatal Vits Tablet 1 TABLET PO (10:32)
--- NOTE | 2022-01-03 12:58 | CASEMGMT ---
Social Work Reason for referral: HX of PPD History obtained from chart review. Patient lives at home with and 3 y.o. son. 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 is not taking a paternity leave, but pt reports job is flexible. Discussed financial status as it is noted pt is self-pay. Pt reports no issues with finances; there is a sabian[employer] fund insurance she obtains that is covering hospital/delivery bills. Pt denies any issues with daily finances, transportation, hx of program or agency involvement. She has all baby supplies needed. Pt is , but did express her first child had issues with and having a soy allergy. Pt did not sound discouraged, but optimistic, as baby is currently well. Pt is not opposed to switching to bottle or formula feeding, if needed. Explored planned control. Pt states she is unable to take typical control pills, but has discussed with OBGYN of getting IUD placed. Explored further hx of PPD and current emotions. Pt expressed very open and honestly her hx and current feelings. She explains with her first child, she felt alone, thrown into parenting, not sure what to do, and that she just ended her [social] life. However, she explained she feels more relaxed this time; has a better understanding and confidence about having a baby. She stated she did not start any depression or anxiety meds prior, but was not opposed to them. She is more aware now that she can feel better [emotionally]. Confirmed feeling more confident with needs, wants, asking for help, setting appropriate boundaries with family/friends. Pt reports she has a good support system from , mother, sister and in-laws. She is comfortable getting assistance from them as needed. Offered counseling resources. Pt accepted them but stated she was active with a counselor prior and would feel comfortable returning, if needed. Discussed pt feeling overall more confident in her parenting skills, being able to better navigate the stage and PP recovery physically and mentally. Encouraged to rely on self and listen to those feelings. Pt agrees. Discussed the transition from one child to two children, and providing 1:1 time with oldest child. Ensure she checks in with oldest child to ensure he is not feeling down. Cautioned for behavior changes with oldest child. Pt agrees. Pt recognizes there will still be challenges, but continued expressing she feels more relaxed this time. Concluded visit with reviewing/providing shaken baby, safe sleep, [facility] resources available, PPD/A facts and resources. Confirmed pt to continue being honest with self and spouse about feelings, needs, and changes in mood. Encouraged to speak openly with OBGYN or PCP, and request depression/anxiety medications, if wishes. Pt appreciative of visit and aware to notify nursing if continued SW support/assistance is wanted. Joanne Toscano, MAIL MESSENGER ROLL FORMING MACHINE SET UP OPERATOR
[2022-01-03] MEDS: Senna/Docusate Sodium 1 Tablet PO (18:17)
[2022-01-04 03:04] VITALS: BP 120/66; PULSE 63; RESP 16; TEMP 36.6
--- NOTE | 2022-01-04 03:25 | PCM.PN.OB ---
Subjective Subjective late entry- seen 01/03 at 8:30 Patient doing well without complaints. Tolerating PO. Ambulating and voiding without difficulty. Feeding well. Denies chest pain, shortness of breath, calf pain/swelling, fevers, chills, lightheadedness. Objective Data Objective Data Vital Signs: Vital Signs Temp Pulse Resp BP Pulse Ox 97.9 F 63 16 120/66 98 01/04/22 03:04 01/04/22 03:04 01/04/22 03:04 01/04/22 03:04 01/03/22 05:29 Oxygen Delivery Method Room Air Weight: 191 lb 2.252 oz Body Mass Index (BMI) 26.6 Intake & Output: Intake and Output for Last 24 Hours 01/02/22 01/03/22 01/04/22 23:59 23:59 23:59 Intake Total 1793.67 / 1793.67 333 / 333 Output Total 1350 / 1350 Balance 1793.67 / 1793.67 -1017 / -1017 Lab / Micro Data Result Diagrams: 01/02/22 19:25 Micro: Microbiology 01/02/22 19:25 Nasal Secretion SARS-CoV-2 Antigen (Rapid) - Final ROS Constitutional Constitutional: Reports systems reviewed and no addt'l complaints, except as documented Cardiovascular Cardiovascular: Reports systems reviewed and no addt'l complaints, except as documented Respiratory/Chest Respiratory/Chest: Reports systems reviewed and no addt'l complaints, except as documented Gastrointestinal Gastrointestinal: Reports systems reviewed and no addt'l complaints, except as documented Physical Exam Const alert, oriented x3 and no apparent distress HEENT Head and Scalp: atraumatic Resp normal respiratory effort GI soft to palpation and non-tender Bimanual Exam - Vag & Uterus: uterus non-tender Uterus Palpation: uterus fundus firm (below Umbilicus) Assessment & Plan (1) Vaginal delivery: COMMENT: SM IAL girl Manju PLAN: s/p PPD # 1 1. routine post delivery care 2. breast feeding- support given 3. rh positive 4. rubella immune
--- NOTE | 2022-01-04 04:21 | PCM.PN.OB ---
Subjective Subjective Patient doing well without complaints. Tolerating PO. Ambulating and voiding without difficulty. feeding well. Denies chest pain, shortness of breath, calf pain/swelling, fevers, chills, lightheadedness. Objective Data Objective Data Vital Signs: Vital Signs Temp Pulse Resp BP Pulse Ox 97.9 F 63 16 120/66 98 01/04/22 03:04 01/04/22 03:04 01/04/22 03:04 01/04/22 03:04 01/03/22 05:29 Oxygen Delivery Method Room Air Weight: 191 lb 2.252 oz Body Mass Index (BMI) 26.6 Intake & Output: Intake and Output for Last 24 Hours 01/02/22 01/03/22 01/04/22 23:59 23:59 23:59 Intake Total 1793.67 / 1793.67 333 / 333 Output Total 1350 / 1350 Balance 1793.67 / 1793.67 -1017 / -1017 Lab / Micro Data Result Diagrams: 01/02/22 19:25 Micro: Microbiology 01/02/22 19:25 Nasal Secretion SARS-CoV-2 Antigen (Rapid) - Final ROS Constitutional Constitutional: Reports systems reviewed and no addt'l complaints, except as documented Cardiovascular Cardiovascular: Reports systems reviewed and no addt'l complaints, except as documented Respiratory/Chest Respiratory/Chest: Reports systems reviewed and no addt'l complaints, except as documented Gastrointestinal Gastrointestinal: Reports systems reviewed and no addt'l complaints, except as documented Physical Exam Const alert, oriented x3 and no apparent distress HEENT Head and Scalp: atraumatic Resp normal respiratory effort GI soft to palpation and non-tender Bimanual Exam - Vag & Uterus: uterus non-tender Uterus Palpation: uterus fundus firm (below Umbilicus) Assessment & Plan (1) Vaginal delivery: COMMENT: SM IAL girl Manju PLAN: s/p PPD #2 1. routine post delivery care 2. breast feeding- support given 3. rh positive 4. rubella immune
[2022-01-04] MEDS: Ketorolac 10 MG Tablet PO (09:23)
[2022-01-04 09:26] VITALS: BP 121/74; PULSE 82; RESP 16; TEMP 36.4
--- NOTE | 2022-01-11 10:03 | NURSING ---
Follow up phone call attempted no answer, left message
== END 2022-01-04 10:00 | disposition home or self-care (01) | DRG 807 ==
LOC: WPOUT 19:41 → WP 19:41
PROVIDERS: Admitting Provider Obstetrics & Gynecology; PCP Family Medicine; Visit Provider Obstetrics & Gynecology
DX: O70.0 First degree perineal laceration during delivery (principal); Z37.0 Single live birth; Z20.822 Contact with and (suspected) exposure to COVID-19; Z3A.37 37 weeks gestation of pregnancy
CPT/HCPCS: 59025; 59050; 85025; 86850; 86900; 86901; 87426; 99218; J7120; G0378

== ENCOUNTER → 2022-11-12 | Outpatient (CLI) | payer SELFPAY ==
[2022-11-12 11:58] LABS: Absolute Lymphocyte Count 1.76 X10^3/uL (0.83-4.51); Absolute Neutrophil Count 2.2 X10^3/uL (2.0-7.7); Basophil# 0.01 X10^3/uL; Basophil% 0.2 % (0-1); Eosinophil# 0.04 X10^3/uL; Eosinophils% 0.9 % (0-5); Hematocrit 38.7 % (37-47); Hemoglobin 12.5 g/dL (12.0-15.0); Lymphocyte # 1.76 X10^3/ul (0.83-4.51); Lymphocyte % 40.7 % (19-41); Mean Corp Hgb Conc 32.3 g/dL (32-36); Mean Corpuscular Hgb 28.9 pg (27.0-32.0); Mean Corpuscular Volume 89.4 fL (81-99); Mean Platelet Vol. 9.9 fl (6.2-12.0); Monocyte# 0.27 X10^3/uL; Monocyte% 6.3 % (0-10); NRBC Flagged by Analyzer 0 % (0-5); Neutrophil # 2.23 X10^3/uL (2.7-7.7); Neutrophil % 51.7 % (47-70); Platelet Count 238 K/mm3 (150-450); RBC Distribution Width CV 12.4 % (11.6-14.6); RBC Distribution Width SD 40.8 fl (35.1-43.9); Red Blood Count 4.33 M/mm3 (4.2-5.4); White Blood Count 4.3 K/mm3 (4.4-11.0)
[2022-11-12 12:54] LABS: T4 Free Direct 1.04 ng/dL (0.76-1.46); Thyroid Stim Hormone (TSH) 1.48 uIU/mL (0.358-3.74)
[2022-11-18 13:38] LABS: HPV Reflexed? NOT INDICATED
== END | disposition home or self-care (01) ==
PROVIDERS: PCP Family Medicine; Referring Provider Advanced Practice Midwife; Visit Provider Advanced Practice Midwife
DX: C53.9 Malignant neoplasm of cervix uteri, unspecified (principal); I89.0 Lymphedema, not elsewhere classified
CPT/HCPCS: 36415; 84439; 84443; 85025; 88175; G0145

== ENCOUNTER → 2024-03-30 | Outpatient (CLI) | payer SELFPAY ==
[2024-03-30 14:42] LABS: Absolute Lymphocyte Count 1.23 X10^3/uL (0.83-4.51); Absolute Neutrophil Count 5.7 X10^3/uL (2.0-7.7); Basophil# 0.01 X10^3/uL; Basophil% 0.1 % (0-1); Eosinophil# 0.05 X10^3/uL; Eosinophils% 0.7 % (0-5); Hematocrit 34.3 % (37-47); Hemoglobin 11.6 g/dL (12.0-15.0); Lymphocyte # 1.23 X10^3/ul (0.83-4.51); Lymphocyte % 16.8 % (19-41); Mean Corp Hgb Conc 33.8 g/dL (32-36); Mean Corpuscular Hgb 30.1 pg (27.0-32.0); Mean Corpuscular Volume 88.9 fL (81-99); Monocyte# 0.33 X10^3/uL; Monocyte% 4.5 % (0-10); NRBC Flagged by Analyzer 0 % (0-5); Neutrophil # 5.67 X10^3/uL (2.7-7.7); Neutrophil % 77.5 % (47-70); Platelet Count 208 K/mm3 (150-450); RBC Distribution Width CV 12.7 % (11.6-14.6); Red Blood Count 3.86 M/mm3 (4.2-5.4); White Blood Count 7.3 K/mm3 (4.4-11.0)
[2024-03-30 15:05] LABS: Free T3 2.3 pg/mL (2.18-3.98); Thyroid Stim Hormone (TSH) 0.36 uIU/mL (0.358-3.74)
[2024-03-30 15:38] LABS: HIV - WCH Non-Reactive (Nonreactive); Hepatitis B Surface Antigen Non-Reactive (Nonreactive); Hepatitis C Antibody Non-Reactive (Nonreactive); Rubella IgG Reactive (Nonreactive); Syphilis Antibodies Non-reactive
== END | disposition home or self-care (01) ==
LOC: PAVLAB 14:28
PROVIDERS: PCP Family Medicine; Referring Provider Registered Nurse; Visit Provider Registered Nurse
DX: Z34.90 Encounter for supervision of normal pregnancy, unspecified, unspecified trimester (principal); Z83.49 Family history of other endocrine, nutritional and metabolic diseases; F41.9 Anxiety disorder, unspecified
CPT/HCPCS: 36415; 84439; 84443; 84481; 85025; 86703; 86762; 86780; 86803; 86850; 86900; 86901; 87340

== ENCOUNTER → 2024-04-27 | Outpatient (CLI) | payer SELFPAY | END | disposition home or self-care (01) | LOC: LABSPEC 17:29 | PROVIDERS: PCP Family Medicine; Referring Provider Obstetrics & Gynecology; Visit Provider Obstetrics & Gynecology | DX: Z34.90 Encounter for supervision of normal pregnancy, unspecified, unspecified trimester (principal) | CPT/HCPCS: 87086 ==

== ENCOUNTER → 2024-05-23 | Outpatient (CLI) | payer SELFPAY | END | disposition home or self-care (01) | PROVIDERS: PCP Family Medicine; Referring Provider Advanced Practice Midwife; Visit Provider Advanced Practice Midwife | DX: Z34.92 Encounter for supervision of normal pregnancy, unspecified, second trimester (principal); Z3A.21 21 weeks gestation of pregnancy | CPT/HCPCS: 87491; 87591 ==

== ENCOUNTER → 2024-05-26 | Outpatient (CLI) | payer SELFPAY ==
--- NOTE | 2024-05-26 11:19 | US_ITS ---
STUDY: SECOND AND THIRD TRIMESTER OBSTETRICAL ULTRASOUND REASON FOR EXAM: Female, 28 years old anatomy scan LMP: 12/27/2023 TECHNIQUE: Transabdominal and Transvaginal TECHNICAL QUALITY: Adequate. PRIOR ULTRASOUND: None. FINDINGS: There is a single intrauterine fetus. The fetus is in a cephalic presentation. There is demonstrated cardiac activity with a heart rate of 148 bpm. There is a normal amniotic fluid volume. The largest amniotic fluid pocket measures 4.4 cm. The amniotic fluid index (RHINA) is cm. The placenta is posterior and low lying but not previa in location. There are Grade 0 placental changes. The cervix measures 4.8 cm in length. The bilateral adnexal regions are normal. BIOMETRY: BPD: 4.6 cm: 20 weeks, 0 days HC: 17.7 cm: 20 weeks, 1 days AC: 16.2 cm: 21 weeks, 2 days FL: 3.2 cm: 20 weeks, 0 days CI: 73.51 FL/BPD: 69.23 FL/HC: 18.11 FL/AC: 19.83 HC/AC: 1.10 age by current US: 20 weeks, 2 days. SANDIP by current US: 10/11/2024. Estimated weight: 367 grams, +/- 55 grams, 9 %. age by prior US: weeks, days. SANDIP by prior US: . Age by LMP: 21 weeks, 4 days. SANDIP by LMP: 10/02/2024. ANATOMY: Gender: Cranium: Normal lateral ventricles. Normal choroid plexus. Normal cerebellum. Normal cisterna magna. Normal face, nose and lips. Chest: Normal 4-chamber heart. Abdomen/Pelvis: Normal diaphragm. Normal stomach. Normal abdominal wall. Normal cord insertion. Normal 3 vessel cord. Normal kidneys. Normal bladder. Spine: Normal cervical spine. Normal thoracic spine. Normal lumbar spine. Normal sacrum. Extremities: Normal bilateral upper extremities. Normal bilateral lower extremities. US/OB Anatomy w/ Transvaginal IMPRESSION: Living intrauterine at 20 weeks 2 days as described above. Electronically Signed: Conrad Beasley MD at 11:04 EDT , Refer to OB ultrasound. Electronically Signed: Conrad Beasley MD at 11:04 EDT ,
== END | disposition home or self-care (01) ==
LOC: US 11:18
PROVIDERS: PCP Family Medicine; Referring Provider Obstetrics & Gynecology; Visit Provider Obstetrics & Gynecology
DX: Z34.90 Encounter for supervision of normal pregnancy, unspecified, unspecified trimester (principal); Z3A.00 Weeks of gestation of pregnancy not specified
CPT/HCPCS: 76805; 76817

== ENCOUNTER → 2024-07-14 | Outpatient (CLI) | payer SELFPAY ==
[2024-07-14 12:12] LABS: Absolute Lymphocyte Count 0.98 X10^3/uL (0.83-4.51); Absolute Neutrophil Count 5.7 X10^3/uL (2.0-7.7); Basophil# 0.01 X10^3/uL; Basophil% 0.1 % (0-1); Eosinophil# 0.03 X10^3/uL; Eosinophils% 0.4 % (0-5); Hematocrit 33.8 % (37-47); Hemoglobin 11.1 g/dL (12.0-15.0); Lymphocyte # 0.98 X10^3/ul (0.83-4.51); Lymphocyte % 13.8 % (19-41); Mean Corp Hgb Conc 32.8 g/dL (32-36); Mean Corpuscular Hgb 30.7 pg (27.0-32.0); Mean Corpuscular Volume 93.4 fL (81-99); Mean Platelet Vol. 10.3 fl (6.2-12.0); Monocyte# 0.33 X10^3/uL; Monocyte% 4.7 % (0-10); NRBC Flagged by Analyzer 0 % (0-5); Neutrophil % 80.6 % (47-70); Platelet Count 194 K/mm3 (150-450); RBC Distribution Width SD 44.7 fl (35.1-43.9); Red Blood Count 3.62 M/mm3 (4.2-5.4); White Blood Count 7.1 K/mm3 (4.4-11.0)
[2024-07-14 12:21] LABS: Glucose Challenge Gest 1H 50g 117 mg/dL (70-140)
[2024-07-14 12:52] LABS: HIV - WCH Non-Reactive (Nonreactive); Syphilis Antibodies Non-reactive
== END | disposition home or self-care (01) ==
LOC: BWCLAB 11:25
PROVIDERS: PCP Family Medicine; Referring Provider Obstetrics & Gynecology; Visit Provider Obstetrics & Gynecology
DX: Z34.92 Encounter for supervision of normal pregnancy, unspecified, second trimester (principal); Z3A.25 25 weeks gestation of pregnancy
CPT/HCPCS: 36415; 82950; 85025; 86703; 86780

== ENCOUNTER → 2024-09-09 | Outpatient (CLI) | payer SELFPAY ==
[2024-09-09 12:44] LABS: Protein, Urine (Random) 34.6 mg/dL (<11.9); Protein:Creat Ratio 161 mg/g CRE (0-200)
[2024-09-09 12:49] LABS: Absolute Lymphocyte Count 0.95 X10^3/uL (0.83-4.51); Absolute Neutrophil Count 5.4 X10^3/uL (2.0-7.7); Basophil# 0.01 X10^3/uL; Basophil% 0.1 % (0-1); Eosinophil# 0.04 X10^3/uL; Eosinophils% 0.6 % (0-5); Hematocrit 34.8 % (37-47); Hemoglobin 11.6 g/dL (12.0-15.0); Lymphocyte # 0.95 X10^3/ul (0.83-4.51); Lymphocyte % 13.8 % (19-41); Mean Corp Hgb Conc 33.3 g/dL (32-36); Mean Platelet Vol. 10.8 fl (6.2-12.0); Monocyte# 0.42 X10^3/uL; Monocyte% 6.1 % (0-10); NRBC Flagged by Analyzer 0 % (0-5); Neutrophil # 5.41 X10^3/uL (2.7-7.7); Neutrophil % 78.7 % (47-70); Platelet Count 176 K/mm3 (150-450); RBC Distribution Width CV 13.2 % (11.6-14.6); RBC Distribution Width SD 44.8 fl (35.1-43.9); Red Blood Count 3.74 M/mm3 (4.2-5.4); White Blood Count 6.9 K/mm3 (4.4-11.0)
[2024-09-09 13:09] LABS: ALB/GLOB Ratio 0.7 RATIO (0.9-2.4); AST(SGOT) 15 U/L (15-37); Alanine Aminotransfer ALT/SGPT 15 U/L (13-56); Alkaline Phosphatase 85 U/L (45-117); Anion Gap 5 (5-15); BUN 8 mg/dL (7-18); BUN/Creat Ratio 13.8 RATIO (10-20); Calcium,Total 8.8 mg/dL (8.5-10.1); Chloride 107 mmol/L (98-107); Creatinine, Serum 0.58 mg/dL (0.55-1.02); EST Glomerular Filtration Rate 132 mL/min (>60); Est Glom Filt Rate - Afr Amer 160 mL/min (>60); Globulin 4.1 g/dL (2.2-4.2); Glucose 102 mg/dL (74-106); Potassium 3.5 mmol/L (3.5-5.1); Protein, Total 7.1 g/dL (6.4-8.2); Sodium Level 137 mmol/L (136-145); Uric Acid 3.3 mg/dL (2.6-6.0)
== END | disposition home or self-care (01) ==
PROVIDERS: PCP Family Medicine; Referring Provider Advanced Practice Midwife; Visit Provider Advanced Practice Midwife
DX: O99.891 Other specified diseases and conditions complicating pregnancy (principal); R51.9 Headache, unspecified; Z3A.00 Weeks of gestation of pregnancy not specified
CPT/HCPCS: 36415; 80053; 82570; 84156; 84550; 85025; 87077; 87081; 87186

== ENCOUNTER 2024-09-14 11:47 | Outpatient (CLI) | payer SELFPAY ==
--- NOTE | 2024-09-14 12:09 | US_ITS ---
STUDY: SECOND AND THIRD TRIMESTER OBSTETRICAL ULTRASOUND - LIMITED REASON FOR EXAM: Female, 29 years old growth, r/o IUGR. Low fundal height. LMP: December 27, 2023. PRIOR ULTRASOUND: Comparison is made with prior study dated May 26, 2024. TECHNIQUE: Transabdominal TECHNICAL QUALITY: Adequate. FINDINGS: There is a single intrauterine fetus. The fetus is in a cephalic presentation. There is demonstrated cardiac activity with a heart rate of 152 bpm. There is a normal amniotic fluid volume. The largest amniotic fluid pocket measures 5.5 cm. The amniotic fluid index (RHINA) is 14.2 cm. The placenta is posterior in location and is not low lying. There are Grade 1 placental changes. BIOMETRY: BPD: 9.27 cm: 37 weeks, 5 days: 75% HC: 32.72 cm: 37 weeks, 1 days: 21% AC: 33.26 cm: 37 weeks, 1 days: 58% FL: 6.66 cm: 34 weeks, 2 days: 2% Age by LMP: 37 weeks, 3 days. SANDIP by LMP: 24/02/2025. age by prior US: 36 weeks, 1 days. SANDIP by prior US: October 11, 2020. age by current US: 36 weeks, 4 days. SANDIP by current US: October 08, 2024. Estimated weight: 2990 grams, +/- 449 grams, 38 percentile. US/OB Limited With Biometrics IMPRESSION: Single live intrauterine gestation with a mean gestational age of 36 weeks and 1 day. The measurements obtained today fall within normal expected range. Electronically Signed: Chace Sorensen MD at 15:13 EST ,
[2024-09-14 12:15] VITALS: BP 121/74; PULSE 71; PULSE 76; O2SAT 99
== END 2024-09-14 15:40 | disposition home or self-care (01) ==
LOC: WPOUT 11:50 → WP 11:51
PROVIDERS: PCP Family Medicine; Referring Provider Obstetrics & Gynecology; Visit Provider Obstetrics & Gynecology
DX: Z34.93 Encounter for supervision of normal pregnancy, unspecified, third trimester (principal); Z3A.36 36 weeks gestation of pregnancy
CPT/HCPCS: 59050; 76816; 99221; G0378

== ENCOUNTER → 2024-09-14 | Outpatient (CLI) | payer SELFPAY | END | disposition home or self-care (01) | PROVIDERS: PCP Family Medicine; Referring Provider Obstetrics & Gynecology; Visit Provider Obstetrics & Gynecology | DX: R30.0 Dysuria (principal) | CPT/HCPCS: 87086 ==

== ENCOUNTER 2024-09-28 07:45 | Inpatient (IN) | payer SELFPAY ==
[2024-09-28] VITALS (38 sets, daily range): BP systolic 96–130; BP diastolic 51–86; PULSE 56–82; RESP 16; TEMP 36.1–36.9; O2SAT 97–100; BMI 25.6
--- NOTE | 2024-09-28 07:45 | HP.PCM.OB_ITS ---
HPI - General General Date of Admission: 09/28/24 Date of Service: 09/28/24 HPI Narrative NAYANA CHRISTINE, is a 29 F 39.3 weeks who presents to unit in active labor. cervical change and from /-3 to /- Maternal Data Information SANDIP Calculator Estimated Delivery Date Method Current WG Current Estimate 10/02/24 LMP (Certain) 39w 3d Final SANDIP: 09/28/24 Final SANDIP Source: US >20 weeks Gestational age: 39.3 weeks PFSH PFS Medical History Family history of thyroid disease Lymphedema Vaginal delivery UTI (urinary tract infection) UTI symptoms depression Home Medications ?Medication ?Instructions ?Recorded ?Last Taken ?Type docosahexaenoic acid 200 mg 1 mg PO 02/26/24 09/27/24 21:00 History capsule ( DHA) sertraline 50 mg tablet (Zoloft) 50 mg PO QDAY #90 tabs 09/21/24 09/27/24 21:00 Rx Allergy/AdvReac Type Severity Reaction Status Date / Time acetaminophen (From Tylenol) Allergy Mild scratchy Verified 09/28/24 06:00 throat amoxicillin Allergy Mild rash Verified 09/28/24 06:00 Family History Mother Hypotension Aunt Breast cancer, Onset Age: 23 Surgical History S/P nasal surgery Social History adopted: No household members: spouse and children number of children: 2 current occupational status: unemployed current occupation: [employer] current occupational exposures/hazards: No pets and animals: Yes (outside) pets and animals: cat(s) and dog(s) history of recent travel: Yes details: - November out of state: No out of c [place]: Yes sexually active: Yes Smoking Status: Never smoker alcohol intake: never substance use type: does not use well-balanced diet: daily or most days caffeine: Yes (1-2cups) Type: coffee eating out: 1-3 times/week during the past year weight has: remained stable what type of physical activity do you participate in: none ariana/taoist: Mormonism seatbelt use: always do you feel safe at home: Yes additional social history: : [employer]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 Date Name GA/Weeks Outcome Route Bth Weight Gen Labor Lgth Anesthesia Del Locatn Provider FOB 10/27/18 Brock 39 live - full term 7lbs 2oz Male 12 h ours epidural [facility] Ana Casas 01/02/22 Manju 38 live - full term 8lbs 2oz Female epidural [facility] Dr. Joe Casas Visit Details Expected Delivery Route/Plan Labor Preferences- CB/BF classes: [] labor support person: [] labor intervention preferences: [] pain management options preferred: [] cut cord/dad catch: [] : [] PP control planned: [] discussed possible routes of delivery and associated risks: [] special requests: [] Plans Covid status: [] Flu vaccine: declined Tdap vaccine: given Rhogam: na LARC form signed: [] movement and labor precautions reviewed. Problem list reviewed and updated with the most current plan of care details and appropriate orders placed. Relevant counseling for the gestational age provided. Continue routine care and follow up unless otherwise noted in visit notes/problem list details OB Flowsheet Initial Weight: 157 lb Date -?-?-?-?-?-?-?-?-?-?-?-?- EGA Weight BP Urine Prot -?-?-?-?-?-?-?-?-?-?-?-?- Glucose FHR FuHt Pres Dilation -?-?-?-?-?-?-?-?-?-?-?-?- Effaced St Visit Note 03/04/24 -?-?-?-?-?-?-?-?-?-?-?-?- 9w 5d 157 lb (+0 oz) 118/69 -?-?-?-?-?-?-?-?-?-?-?-?- 144 -?-?-?-?-?-?-?-?-?-?-?-?- LC- CRL cw LMP. declines nipt. on zoloft for anxiety, tsh added. 03/30/24 -?-?-?-?-?-?-?-?-?-?-?-?- 13w 3d 159 lb (+2 lb) 104/62 Negative -?-?-?--?-?-?-?-?-?-?-?-?- Negative 145 -?-?-?-?-?-?-?-?-?-?-?-?- SM- no vb crampi ng NOB labs getting drawn today 04/27/24 -?-?-?-?-?-?-?-?-?-?-?-?- 17w 3d 162 lb 2 oz (+5 lb 2 oz) 106/64 -?-?-?-?-?-?-?-?-?-?-?-?- 154 -?-?-?-?-?-?-?-?-?-?-?-?- JV- no lof, vagi nal bleeding, or cramping. some movement. anatomy scan ordered. 05/23/24 -?-?-?-?-?-?-?-?-?-?-?-?- 21w 1d 163 lb 6 oz (+6 lb 6 oz) 95/59 Negative -?-?-?-?-?-?-?-?-?-?-?-?- Negative 160 20 -?-?-?-?-?-?-?-?-?-?-?-?- KW- no vb/crampi ng. good fm. has US scheduled for later this week KW- no vb/cramping. good fm. has US scheduled for later this week. urine gcc today 06/24/24 -?-?-?-?-?-?-?-?-?-?-?-?- 25w 5d 173 lb 8 oz (+16 lb 8 oz) 118/70 Negative -?-?-?-?-?-?-?-?-?-?-?-?- Negative 150 25 -?-?-?-?-?-?-?-?-?-?-?-?- SM- no vb lof go od fm no regular ctx 07/14/24 -?-?-?-?-?-?-?-?-?-?-?-?- 28w 4d 175 lb (+18 lb) 112/66 Negative -?-?-?-?-?-?-?-?-?-?-?-?- Negative 150 29 -?-?-?-?-?-?-?-?-?-?-?-?- SM- no vb lof go od fm n oregular ctx cbc gct tdap today 07/28/24 -?-?-?-?-?-?-?-?-?-?-?-?- 30w 4d 176 lb 2 oz (+19 lb 2 oz) 124/76 Negative -?-?-?-?-?-?-?-?-?-?-?-?- Negative 152 31 -?-?-?-?-?-?-?-?-?-?-?-?- JV- no lof, vagi nal bleeding, or dec fm. signed larc today and declined. 08/11/24 -?-?-?-?-?-?-?-?-?-?-?-?- 32w 4d 179 lb (+22 lb) 111/72 Negative -?-?-?-?-?-?-?-?-?-?-?-?- Negative 145 32 -?-?-?-?-?-?-?-?-?-?-?-?- KW- no vb/lof/ct x. good fm. no concerns today 08/25/24 -?-?-?-?-?-?-?-?-?-?-?-?- 34w 4d 179 lb 4 oz (+22 lb 4 oz) 105/67 Negative -?-?-?-?-?-?-?-?-?-?-?-?- Negative 150 34.5 -?-?-?-?-?-?-?-?-?-?-?-?- JV- no lof, vagi nal bleeding, ro dec fm. no complaints today 09/09/24 -?-?-?-?-?-?-?-?-?-?-?-?- 36w 5d 180 lb 8 oz (+23 lb 8 oz) 118/71 Negative -?-?-?-?-?-?-?-?-?-?-?-?- Negative 150 35 Cephalic 1 -?-?-?-?-?-?-?-?-?-?-?-?- 60 -2 KW- no vb/ lof/ctx. good fm. GBS today. PRe e labs due to onset of headaches. 09/14/24 -?-?-?-?-?-?-?-?-?-?-?-?- 37w 3d 179 lb 8 oz (+22 lb 8 oz) 111/69 Negative -?-?-?-?-?-?-?-?-?-?-?-?- Negative 140 34 -?-?-?-?-?-?-?-?-?-?-?-?- SM- no vb lof go od fm no regular ctx/ to l and d for growth now SM- no vb lof good fm no reg ular ctx/ to l and d for growth now. 09/21/24 -?-?-?-?-?-?-?-?-?-?-?-?- 38w 3d 184 lb (+27 lb) 126/76 Negative -?-?-?-?-?-?-?-?-?-?-?-?- Negative 151 36 Cephalic 1 -?-?-?-?-?-?-?-?-?-?-?-?- 70 -2 JV- elie wa s 14 last week. no lof, vaginal bleeding, or dec fm. JV- elie was 14 last week. no lof, vaginal bleeding, or dec fm. growth was normal also NST FHR Rate Baby A Baseline: 140 Variability:: Moderate Accelerations:: 15 x 15 Decelerations:: None NST Reactive:: Yes FHR Category:: Category I Uterine Activity:: 4-5 minutes ROS Constitutional Constitutional: Denies change in weight, fatigue, fever(s), headache(s), poor appetite or weakness Eyes Eyes: Denies blurry vision, change in vision, floaters, seeing flashes or spots in vision ENT HEENT: Denies dizziness, headache(s), loss taste/smell or sore throat Cardiovascular Cardiovascular: Denies chest pain, dizziness, dyspnea, irregular heart rhythm, lightheadedness, palpitations or rapid heart rate Respiratory/Chest Respiratory/Chest: Denies change in mental status, chest tightness, cough, dyspnea or breast pain Gastrointestinal Gastrointestinal: Denies anorexia, chewing difficulty, constipation, diarrhea or weight changes Genitourinary Genitourinary: Denies difficulty urinating, dysuria, flank pain, genital pain, urinary frequency or urinary urgency Musculoskeletal Musculoskeletal: Denies back pain, difficulty walking, extremity pain, joint pain, muscle cramps or muscle weakness Integumentary Integumentary: Denies lesions or unusual bruising Neurologic Neurologic: Denies abnormal movements, abnormal speech, dizziness, numbness, seizure-like activity, syncope or weakness Psychiatric Psychiatric: Denies behavioral changes, change in appetite, confusion, depression, homicidal ideation, suicidal ideation or suicidal thoughts Endocrine Endocrinology: Denies excessive sweating, polydipsia or polyuria Hematologic/Lymphatic Hematologic/Lymphatic: Denies anemia Allergic/Immunologic Allergic/Immunologic: Denies itchy eyes, lip swelling, throat swelling, tongue swelling or wheezing Vital Signs Vital Signs Vital Signs: 09/28/24 05:57 09/28/24 05:57 09/28/24 05:58 Temperature Temperature Source Pulse Rate 81 Respiratory Rate Blood Pressure 119/69 BP Systolic 119 BP Diastolic 69 Pulse Ox 97 09/28/24 05:58 09/28/24 05:58 09/28/24 05:58 Temperature Temperature Source Temporal Pulse Rate 77 Respiratory Rate 16 Blood Pressure BP Systolic BP Diastolic Pulse Ox 09/28/24 05:58 Temperature 97.0 F L Temperature Source Pulse Rate Respiratory Rate Blood Pressure BP Systolic BP Diastolic Pulse Ox Weight Weight: 183 lb 10.321 oz Body Mass Index (BMI) 25.6 Physical Exam Const alert, oriented x3 and no apparent distress General Appearance: cooperative Orientation / Consciousness: awake HEENT normocephalic Neck full ROM Lymph Lymphatic: no lymphadenopathy noted Chest inspection of chest normal Resp normal respiratory effort and normal air movement Effort and Inspection: able to speak in complete sentences and symmetric chest movement GI soft to palpation and non-tender Inspection: gravid Palpation: soft; Negative for tender external exam normal Back/Spine normal to inspection Extremity normal to inspection and full ROM Skin no rashes or lesions noted Psych mental status grossly normal Appearance: grossly normal Speech: normal speech Labs Labs Labs: Blood Type A POSITIVE Antibody Screen NEGATIVE Hct 34.8 % (37-47) L Hgb 11.6 g/dL (12.0-15.0) L Obstetrics Ultrasound Syphilis Total Ab Non-reactive Rubella IgG Antibody Reactive (Nonreactive) Hep Bs Antigen Non-Reactive (Nonreactive) Hepatitis C Antibody Non-Reactive (Nonreactive) HIV 1&2 Antibody Non-Reactive (Nonreactive) Glucose 1 Hr 50 gm 117 mg/dL (70-140) Gest Glucose Tolerance MG/DL Rhogam given: No Assessment & Plan (1) Active labor: PLAN: Patient presents IAL, plan expectant management for , pitocin/AROM PRN if needed. Pain management: plans epidural. GBS positive plan IV PCN-plan vancomycin Management of any complications: none I have reviewed the [facility] and made any clinically relevant updates. Dr Canas aware of admission, assessment and plan. agrees with above (2) Uterine size-date discrepancy, third trimester: COMMENT: sent to triage for growth US and was normal (3) Positive GBS test: COMMENT: treat in labor (4) Supervision of normal : COMMENT: PRR,, SANDIP 10/02, surprise PC: Latanya, : Aguusto (5) : QUALIFIERS: Weeks of gestation: 38 weeks Qualified Code(s): Z3A.38 - 38 weeks gestation of COMMENT: declined ntd genetic/carrier screening. anatomy reviewed, repeat at [facility] WNL other than low lying placenta. (6) Anxiety: COMMENT: Currently taking Zoloft Charges/Coding Multi Select Codes Urinary/Genital Urinary/Genital CPT Codes: No Charge
--- NOTE | 2024-09-28 08:08 | PCM.RX.CS ---
Consult Antibiotic Management Pharmacy has been consulted to manage selected antibiotic: Vancomycin Type of Intervention Type of Consult: New start Suspected Infection Suspected Infection: Other (WP GBS) Dosing Weight Weight used for dosin.3 kg Goal Trough Goal Trough: 10-15 mcg/mL Pharmacy Plan for Drug Dosing Pharmacy Plan for Drug Dosing: NEW START IV VANCOMYCIN Consulting Physician: Deysi Martin Indication: WP GBS Goal Trough: 10-15 SrCr: 0.58 (09/09/24) Vancomycin Dose: 1750mg (20 mg/kg) Q8H to start @ 09:00 09/28/24 Pending Level: Vancomycin trough @ 08:30 09/29/24 (unless pt delivers prior) Pharmacy Service will continue to monitor and adjust dosing as required. Follow-Up Labs Follow-Up Labs: Trough: Vancomycin (09/29/24 @ 08:30)
[2024-09-28] MEDS: Lactated Ringers 1,000 ML 50 ML IV (08:10)
[2024-09-28 08:47] LABS: Absolute Lymphocyte Count 1.09 X10^3/uL (0.83-4.51); Absolute Neutrophil Count 6.7 X10^3/uL (2.0-7.7); Basophil# 0.01 X10^3/uL; Basophil% 0.1 % (0-1); Eosinophil# 0.01 X10^3/uL; Eosinophils% 0.1 % (0-5); Hematocrit 33.6 % (37-47); Hemoglobin 11.5 g/dL (12.0-15.0); Lymphocyte # 1.09 X10^3/ul (0.83-4.51); Lymphocyte % 13.2 % (19-41); Mean Corp Hgb Conc 34.2 g/dL (32-36); Mean Corpuscular Hgb 31.7 pg (27.0-32.0); Mean Corpuscular Volume 92.6 fL (81-99); Mean Platelet Vol. 10.9 fl (6.2-12.0); Monocyte# 0.38 X10^3/uL; Monocyte% 4.6 % (0-10); NRBC Flagged by Analyzer 0 % (0-5); Neutrophil % 81.3 % (47-70); Platelet Count 167 K/mm3 (150-450); RBC Distribution Width CV 12.8 % (11.6-14.6); RBC Distribution Width SD 43.5 fl (35.1-43.9); Red Blood Count 3.63 M/mm3 (4.2-5.4); White Blood Count 8.3 K/mm3 (4.4-11.0)
[2024-09-28] MEDS: Vancomycin HCl 1,750 MG in 0.9% Normal Saline (500mL Bag) 500 ML 250 MG IV (09:19)
[2024-09-28 09:33] LABS: Syphilis Antibodies Non-reactive
[2024-09-28] MEDS: Lactated Ringers 1,000 ML 999 ML IV (11:00)
[2024-09-28] MEDS: fentaNYL-bupivacaine (epidural) 100 ML BAG EPIDURAL (11:58)
--- NOTE | 2024-09-28 12:06 | PCM.PN.BLA ---
Progress Note comfortable with epidural current tracing: FHT: 140 Moderate variability reactive no decelerations category I tracing [place]: 3-5 moinutes Contractions Membranes: AROm clear SVE:6/80/-2 A/P: Continue with position changes Epidural per anesthesia Vancomycin for GBS prophylaxis Anticipate Dr Thrasher aware of above assessment and agrees with plan of care Assessment & Plan Assessment/Plan (1) Active labor: (2) Uterine size-date discrepancy, third trimester: (3) Positive GBS test: (4) Supervision of normal : (5) : QUALIFIERS: Weeks of gestation: 38 weeks Qualified Code(s): Z3A.38 - 38 weeks gestation of (6) Anxiety: Multi Select Codes Urinary/Genital Urinary/Genital CPT Codes: No Charge
[2024-09-28] MEDS: Oxytocin 15 Units/NS 250ml 15 UNITS/250 ML IV.SOLN 2 UNITS IV (13:52)
--- NOTE | 2024-09-28 16:29 | OB.VAGDELI_ITS ---
Assessment & Plan (1) Vaginal delivery: COMMENT: KW IAL girl Sherri (2) Active labor: (3) Uterine size-date discrepancy, third trimester: COMMENT: sent to triage for growth US and was normal (4) Positive GBS test: COMMENT: treat in labor (5) Supervision of normal : COMMENT: PRR,, SANDIP 10/02, surprise PC: Latanya, : Augusto (6) : QUALIFIERS: Weeks of gestation: 38 weeks Qualified Code(s): Z3A.38 - 38 weeks gestation of COMMENT: declined ntd genetic/carrier screening. anatomy reviewed, repeat at [facility] WNL other than low lying placenta. (7) Anxiety: COMMENT: Currently taking Zoloft Maternal Data Information SANDIP Calculator Estimated Delivery Date Method Current WG Current Estimate 10/02/24 LMP (Certain) 39w 3d Final SANDIP: 10/02/24 Final SANDIP Source: US >20 weeks Gestational age: 39.3 Vaginal Delivery Maternal Presentation Maternal Presentation: Active Labor Maternal Presentation: Presented to unit for active labor Vaginal Delivery Information Procedure Performed: Spontaneous Vaginal Delivery Surgeon/Practitioner: Deysi Martin Date of Procedure: 09/28/24 Pre-Procedure Diagnosis: see problem list Post-Procedure Diagnosis: same Type of anesthesia: Epidural Estimated Blood Loss: 100 Time of Delivery: 16:19 Findings Description of procedure: Progressed well to 10cm dilated and made steady progress with effective maternal pushing. Delivered the head in CARLOS presentation. The head was delivered atraumatically and no nuchal cord was identified. The anterior and posterior shoulders delivered without complication followed by the rest of the and the was placed on the maternal abdomen. Delayed cord clamping was employed for approximately 3 minutes. Cord was clamped and cut and gentle traction was applied to the cord and the placenta delivered spontaneously. Immediately following, it was noted to be intact with a 3 vessel cord. Uterine bleeding stable. The perineum and vagina were inspected and noted to have no laceration. EBL was 100cc. Patient and tolerated delivery well. Apgars 9/9. Dr Canas notified of vaginal delivery and orders reviewed. Physician agrees with current plan of care. Presentation: Vertex Amniotic Membrane Rupture Type: Artificial Amniotic Fluid Description: Clear Placental Delivery Description: Spontaneous Placenta Disposition: [facility] Specimen collected: No Cord Vessel Description: 3 Vessels Cord Entanglement: None Infant A Gender: Female (1 minute): 9 (5 minute): 9 Delayed Cord Clamping: Yes Forensic Examiner stable helper: No Post Vaginal Deli Medications given after delivery: IV Pitocin Episiotomy Description: None Laceration: None Complication Complications: No Multi Select Codes Urinary/Genital Urinary/Genital CPT Codes: 08527 Vaginal Delivery [facility]
--- NOTE | 2024-09-28 16:32 | DCINST_ITS ---
Discharge Instructions Diet Discharge Diet: No restrictions DC O2, CPAP, BIPAP needs Home O2 Discharge instructions: No Dressing / Incision Discharge Activity: Return to Normal Activity May resume sexual activity in: 6-8 weeks Dressing / Incision Call your doctor if you observe: Fever of 101 or Higher, Coldness, Increased Pain, Numbness or Tingling, Change in Color, Inability to urinate, Inability to have a bowel movement, Using more than 1 pad per hour, Shortness of breath, Dizziness, Fainting spells, Swelling in the ankles, Chest pain, Increased p alpitations (irregular heartbeat), Calf discomfort and Uncontrolled pain Follow Up Care Please Follow Up With: Deysi Martin CNM When: Please call the office to schedule your follow up appointment in 6 weeks. If you had high blood pressure please call to schedule an appointment in 2 weeks. Test Results: Test results from this visit will be discussed in further detail at your follow- up appointment, if applicable. Discharge Plan Admission Admit Date/Time: 09/28/24 07:45 Attending Provider: Deysi Martin Primary Care Provider: Ruth Salcido Discharge Orders/Prescriptions Prescriptions: No Action DHA 200 mg capsule 1 mg PO DAILY sertraline [Zoloft] 50 mg tablet 50 mg PO QDAY Qty: 90 4RF Referrals / Follow Up: Ruth Salcido DO [Primary Care Provider] -
[2024-09-28] MEDS: Oxytocin 15 Units/NS 250ml 15 UNITS/250 ML IV.SOLN 83 UNITS IV (17:00)
[2024-09-28] MEDS: Sertraline 50 MG Tablet PO (21:28)
[2024-09-29] VITALS (13 sets, daily range): BP systolic 103–120; BP diastolic 59–84; PULSE 55–69; RESP 16–18; TEMP 36.3–36.8; O2SAT 96–98
[2024-09-29] MEDS: Ibuprofen 600 MG Tablet PO ×3 (00:08→18:36)
--- NOTE | 2024-09-29 08:41 | PCM.PN.OB ---
Subjective Subjective Patient doing well without complaints. Tolerating PO. Ambulating and voiding without difficulty. Feeding well. Denies chest pain, shortness of breath, calf pain/swelling, fevers, chills, lightheadedness. Objective Data Objective Data Vital Signs: Vital Signs Temp Pulse Resp BP Pulse Ox O2 Del Method 98.0 F 58 L 17 120/84 H 97 Room Air 09/29/24 04:00 09/29/24 07:30 09/29/24 04:00 09/29/24 07:25 09/29/24 07:24 09/29/24 04:00 Oxygen Delivery Method Room Air Weight: 183 lb 10.321 oz Body Mass Index (BMI) 25.6 Intake & Output: Intake and Output for Last 24 Hours 09/27/24 09/28/24 09/29/24 23:59 23:59 23:59 Intake Total 3009.00 / 3009.00 Output Total 1450 / 2350 900 / 900 Balance 1559.00 / 659.00 -900 / -900 Lab / Micro Data 09/28/24 08:08 Labs: Laboratory Results - last 24 hr 09/28/24 08:08: WBC 8.3, RBC 3.63 L, Hgb 11.5 L, Hct 33.6 L, MCV 92.6, MCH 31.7, MCHC 34.2, RDW Std Deviation 43.5, RDW Coeff of Fermin 12.8, Plt Count 167, MPV 10.9, Immature Gran % (Auto) 0.700, Neut % (Auto) 81.3 H, Lymph % (Auto) 13.2 L, [place] % (Auto) 4.6, Eos % (Auto) 0.1, Baso % (Auto) 0.1, Absolute Neuts (auto) 6.7, Absolute Lymphs (auto) 1.09, Nucleated RBC % 0, Syphilis Total Ab Non-reactive, Blood Type A POSITIVE, Antibody Screen NEGATIVE ROS Constitutional Constitutional: Denies chills, fatigue, fever(s), poor appetite or weakness Eyes Eyes: Denies blurry vision, change in vision, seeing flashes or spots in vision ENT HEENT: Denies dizziness, headache(s), loss taste/smell or sore throat Cardiovascular Cardiovascular: Denies chest pain, dizziness, dyspnea, irregular heart rhythm, palpitations or rapid heart rate Respiratory/Chest Respiratory/Chest: Denies chest tightness, cough, dyspnea or breast pain Gastrointestinal Gastrointestinal: Denies abdominal pain, constipation or vomiting Genitourinary Genitourinary: Denies dysuria or flank pain Musculoskeletal Musculoskeletal: Denies difficulty walking, joint pain, limited range of motion or numbness Neurologic Neurologic: Denies abnormal movements, abnormal speech, dizziness, numbness, seizure-like activity or syncope Psychiatric Psychiatric: Denies anxiety, behavioral changes, change in appetite, confusion, depression or suicidal thoughts Physical Exam Const alert, oriented x3 and no apparent distress General Appearance: cooperative and comfortable Resp normal respiratory effort Cardio regular rate GI normal to inspection, nondistended, normoactive bowel sounds GI Narrative: uterus is firm below umbilicus Palpation: soft Back/Spine no CVA tenderness and thoraco-lumbar ROM normal Extremity normal to inspection, no clubbing, cyanosis or edema, no calf tenderness and no pedal edema Psych mental status grossly normal, thought process normal, cooperative, affect normal, speech normal, activity/motor behavior normal, denies homicidal ideation and denies suicidal ideation Assessment & Plan (1) Vaginal delivery: COMMENT: JUAN RAMON DENNIS girl Sherri PLAN: Plan s/p PPD # 1 1. routine post delivery care 2. breast feeding- support given 3. rh positive 4. rubella immune 5. possible dc tonight if ok with peds
[2024-09-29] MEDS: Sertraline 50 MG Tablet PO (20:16)
[2024-09-30 02:16] VITALS: BP 114/69; PULSE 56; RESP 16; TEMP 36.8; O2SAT 96
[2024-09-30 02:18] VITALS: BP 114/69; PULSE 56
--- NOTE | 2024-09-30 09:46 | PN.OBGYN_ITS ---
Subjective Subjective s/p PPD # 2 1. routine post delivery care 2. breast feeding- support given 3. rh positive 4. rubella immune Objective Data Objective Data Vital Signs: Vital Signs Temp Pulse Resp BP Pulse Ox O2 Del Method 98.2 F 56 L 16 114/69 96 Room Air 09/30/24 02:16 09/30/24 02:18 09/30/24 02:16 09/30/24 02:18 09/30/24 02:16 09/30/24 02:16 Oxygen Delivery Method Room Air Weight: 183 lb 10.321 oz Body Mass Index (BMI) 25.6 Intake & Output: Intake and Output for Last 24 Hours 09/28/24 09/29/24 09/30/24 23:59 23:59 23:59 Intake Total 3009.00 / 3009.00 Output Total 1450 / 2350 900 / 900 Balance 1559.00 / 659.00 -900 / -900 Lab / Micro Data 09/28/24 08:08 Physical Exam Const alert, oriented x3 and no apparent distress General Appearance: cooperative and comfortable Resp normal respiratory effort Cardio regular rate GI normal to inspection, nondistended, normoactive bowel sounds GI Narrative: uterus is firm below umbilicus Palpation: soft Back/Spine no CVA tenderness and thoraco-lumbar ROM normal Extremity normal to inspection, no clubbing, cyanosis or edema, no calf tenderness and no pedal edema Psych mental status grossly normal, thought process normal, cooperative, affect normal, speech normal, activity/motor behavior normal, denies homicidal ideation and denies suicidal ideation Assessment & Plan (1) Vaginal delivery: COMMENT: KW IAL girl Sherri (2) Positive GBS test: COMMENT: treat in labor (3) Supervision of normal : COMMENT: PRR,, SANDIP 10/02, surprise PC: Latanya, : Augusto (4) : QUALIFIERS: Weeks of gestation: 38 weeks Qualified Code(s): Z 3A.38 - 38 weeks gestation of COMMENT: declined ntd genetic/carrier screening. anatomy reviewed, repeat at [facility] WNL other than low lying placenta. (5) Anxiety: COMMENT: Currently taking Zoloft PLAN: Plan s/p PPD # 2 1. routine post delivery care 2. breast feeding- support given 3. rh positive 4. rubella immune 5. d/c home today
--- NOTE | 2024-09-30 09:47 | PCM.DC.SUM ---
Providers Date of Admission: 09/28/24 Primary Care Physician: Dr. Ruth Salcido DO Reason For Visit: VAGINAL DELIVERY Diagnosis Discharge Diagnosis (1) Vaginal delivery: Status: Acute Code(s): O80 - Encounter for full-term uncomplicated delivery (2) Positive GBS test: Status: Acute Code(s): B95.1 - Streptococcus, group B, as the cause of diseases classified elsewhere (3) Supervision of normal : Status: Acute Code(s): Z34.90 - Encounter for supervision of normal , unspecified, unspecified trimester (4) : Status: Acute Code(s): Z34.90 - Encounter for supervision of normal , unspecified, unspecified trimester Qualifiers: Weeks of gestation: 38 weeks Qualified Code(s): Z3A.38 - 38 weeks gestation of (5) Anxiety: Status: Acute Code(s): F41.9 - Anxiety disorder, unspecified Plan s/p PPD # 2 1. routine post delivery care 2. breast feeding- support given 3. rh positive 4. rubella immune 5. d/c home today Medications at Discharge Home Medications docosahexaenoic acid 200 mg capsule ( DHA) 1 mg PO DAILY 02/26/24 sertraline 50 mg tablet (Zoloft) 50 mg PO QDAY #90 tabs 09/21/24 Hospital Course Operations None Procedures None Summary of Care Provided Minutes Spent on Discharge: 10 Hospital Course: admitted in active labor. with normal pp course. Weight / BMI Weight Weight: 183 lb 10.321 oz Body Mass Index (BMI) 25.6 ABG / Lab / Microbiology Data 09/28/24 08:08 D/C Instructions Discharge Diet: No restrictions May resume sexual activity in: 6-8 weeks Call your doctor if you observe: Fever of 101 or Higher, Coldness, Increased Pain, Numbness or Tingling, Change in Color, Inability to urinate, Inability to have a bowel movement, Using more than 1 pad per hour, Shortness of breath, Dizziness, Fainting spells, Swelling in the ankles, Chest pain, Increased palpitations (irregular heartbeat), Calf discomfort and Uncontrolled pain DC O2, CPAP, BIPAP Needs Home O2 Discharge instructions: No Please Follow Up With: Deysi Martin CNM When: Please call the office to schedule your follow up appointment in 6 weeks. If you had high blood pressure please call to schedule an appointment in 2 weeks. Meaningful Use Info Meaningful Use Meaningful Use Diagnoses (Choose all that apply): None applicable Ischemic Stroke Statin Dosing Therapy Reference: STATIN DOSE THERAPY REFERENCE: * Patients > 75 years receive moderate or high dose statin therapy. * Patients 75 years or YOUNGER should receive HIGH intensity statin dose unless contraindicated. You will be required to document reason for non-treatment if statin daily dose does not meet guidelines. HIGH DOSE STATIN THERAPY DAILY Atorvastatin > than or = to 40 mg Rosuvastatin > than or = to 20 mg Amlodipine + Atorvastatin > than or = to 2.5/40 mg Ezetimibe + Simvastatin 10/80 mg Simvastatin 80mg Discharge Plan Admission Admit Date/Time: 09/28/24 07:45 Attending Provider: Deysi Martin Primary Care Provider: Ruth Salcido Discharge Orders/Prescriptions Prescriptions: No Action DHA 200 mg capsule 1 mg PO DAILY sertraline [Zoloft] 50 mg tablet 50 mg PO QDAY Qty: 90 4RF Referrals / Follow Up: Ruth Salcido DO [Primary Care Provider] - Disposition Disposition (needs filled in before D/C Order can be placed): Home, Self Care
--- NOTE | 2024-09-30 09:53 | CASEMGMT ---
Social Work Brief Assessment - Labor and Delivery Unit Patient Address: [place] [address] Phone number: [phone] Date and Time of Referral:? 09/28/242019 Referred By: Deysi Martin Date and time of intervention:? 09/30/24, 09 Reason for Referral:?? mental health Informant:?? Medical record and mother of baby (MOB) History:? Sw completed chart review and acknowledges social work consult due to maternal mental health history. Sw presented to bedside and introduced self to mother of baby (MOB- Ayesha) and father of baby (FOB- Augusto). Sw explained reason for sw involvement and completed psychosocial assessment. Parents met through their [employer] group, and have been together for 10 years, are . [place] baby is third child for both parents. Parents deny any issues or concerns with housing, stating that it is safe and secure. Parents have reliable means of transportation and natural supports in place (grandparents, FOB and maternal aunt). All necessary baby supplies obtained. MOB states that she struggled with depression after her first baby was born. MOB states at that time she would cry a lot and felt depressed. MOB states that she did not seek any mental health services or supports at time and just used coping skills. MOB states that her mental health was much more managed after her second baby was born. MOB reports that she felt more secure in asking for help, and not feeling like she needed to do everything by herself. PABLO is now prescribed zoloft to help her manage her mental health symptoms, her prescriber is Kylah WOLFE. FOB states that if MOB were to struggle with any baby blues or depression/ anxiety he would be able to recognize that and would know how to help and support her. Parents educated on shaken baby prevention and ABCs of safe sleep. Assessment:? Both parents were open and receptive to meeting with sw. Parents were talkative and open to discussing mental health signs and symptoms. MOB states that she has a lot of people available to help her with her older children while she cares for baby. FOB states that he is also able to recognize if MOB were to struggle with her mental health and would know how to help and support her. MOB was observed to hold baby and provide loving and appropriate hands on care. Plan:??? MOB and baby to be discharged when medially ready. Information provided to parents regarding: Help Me Grow, list of county resources, safe sleep, shaken baby prevention and signs and symptoms of baby blues and mood and anxiety disorders to be mindful of. No further needs requested or indicated. Rukhsana Rivera, BALLOON TESTER, RECREATIONAL THERAPY TECHNICIAN
[2024-09-30 10:00] VITALS: PULSE 68; O2SAT 94
[2024-09-30 10:01] VITALS: BP 115/68; PULSE 66; O2SAT 94
[2024-09-30 10:03] VITALS: BP 115/68; PULSE 69; RESP 16; TEMP 36.6; O2SAT 97
== END 2024-09-30 10:30 | disposition home or self-care (01) | DRG 807 ==
LOC: WPOUT 07:48 → WP 07:48
PROVIDERS: Admitting Provider Obstetrics & Gynecology; PCP Family Medicine; Referring Provider Obstetrics & Gynecology; Visit Provider Advanced Practice Midwife
DX: O26.843 Uterine size-date discrepancy, third trimester (principal); Z37.0 Single live birth; O99.344 Other mental disorders complicating childbirth; F41.9 Anxiety disorder, unspecified; O99.824 Streptococcus B carrier state complicating childbirth; Z3A.39 39 weeks gestation of pregnancy; Z79.899 Other long term (current) drug therapy
CPT/HCPCS: 59025; 59050; 85025; 86780; 86850; 86900; 86901; 99221; G0378